=== PATIENT | female | born 2000 | race Caucasian/White ===

== ENCOUNTER 2018-06-04 21:19 | Emergency (ER) | payer OTHER ==
[2018-06-04 21:25] VITALS: RESP 18
[2018-06-04 22:05] LABS: Basophils % (A) 0 %; Eosinophils # (A) 0.2 k/uL (0-0.7); Eosinophils % (A) 3 %; HCT 39.8 % (34.0-46.0); HGB 13.3 gm/dL (11.4-16.0); Lymphocytes # (A) 1.8 k/uL (1.0-4.8); Lymphocytes % (A) 28 %; MCH 28.8 pg (25.0-35.0); MCHC 33.5 g/dL (31.0-37.0); MCV 85.9 fL (80.0-100.0); Mean Platelet Volume 6.6; Monocytes # (A) 0.3 k/uL (0-1.0); Monocytes % (A) 5 %; Neutrophils % (A) 62 %; Platelet Count 276 k/uL (150-450); RBC 4.63 m/uL (3.80-5.40); RDW 12.5 % (11.5-15.5); WBC 6.5 k/uL (4.0-11.0)
--- NOTE | 2018-06-04 22:25 | US ---
EXAMINATION TYPE: US abdomen complete DATE OF EXAM: 06/04/2018 COMPARISON: NONE CLINICAL HISTORY: Pain. Intermittent abdomen pain x 2 years, gets worse after eating, patient not NPO , ate 2 hours prior to exam. EXAM MEASUREMENTS: Liver Length: 15.3 cm Gallbladder Wall: 0.1 cm CBD: 0.2 cm Spleen: 10.7 cm Right Kidney: 10.1 x 3.5 x 4.7 cm Left Kidney: 10.0 x 5.1 x 4.6 cm Pancreas: wnl Liver: wnl Gallbladder: contracted Evidence for sonographic Dooley's sign: yes CBD: wnl Spleen: wnl Right Kidney: wnl Left Kidney: wnl Upper IVC: wnl Abd Aorta: wnl The liver is homogenous. The intrahepatic portion of the IVC and proximal abdominal aorta are within normal limits. There is no evidence of cholelithiasis. Common bile duct is unremarkable. The visu alized portions of the pancreas are homogenous. The spleen is unremarkable. Kidneys are symmetric a nd free of hydronephrosis. No renal lesions are seen. IMPRESSION: Negative complete abdominal sonogram. No gallstones or dilated ducts.
[2018-06-04 22:32] LABS: ALT 28 U/L (9-52); AST 20 U/L (14-36); Alkaline Phosphatase 56 U/L (38-126); Anion Gap 12 mmol/L; Blood Urea Nitrogen 9 mg/dL (7-17); Carbon Dioxide 23 mmol/L (22-30); Chloride 107 mmol/L (98-107); Glucose 100 mg/dL (74-99); Lipase 120 U/L (23-300); Potassium 4.1 mmol/L (3.5-5.1); Sodium 142 mmol/L (137-145); Total Bilirubin 0.4 mg/dL (0.2-1.3); Total Protein 8.2 g/dL (6.3-8.2)
--- NOTE | 2018-06-04 22:37 | XR ---
EXAMINATION TYPE: XR abdomen acute w cxr DATE OF EXAM: 06/04/2018 COMPARISON: NONE HISTORY: Abdominal pain TECHNIQUE: Chest x-ray with supine and upright abdomen FINDINGS: Heart and mediastinum are normal. Lungs are clear. Diaphragm is normal. There is mild thoracic dextro scoliosis. The bowel gas pattern is normal. There is no sign of intestinal obstruction or pneumoperit oneum. Fecal pattern is normal. There are no pathologic calcifications over the kidneys. Bony structu res are intact. IMPRESSION: Nonacute abdomen. No active cardiopulmonary disease.
[2018-06-04 22:49] LABS: Appearance,Urine Cloudy (Clear); Bacteria,Urine Occasional /hpf; Bilirubin,Urine Negative (Negative); Blood,Urine Negative (Negative); Color,Urine Light Yellow; Glucose,Urine (UA) Negative (Negative); Ketones,Urine Negative (Negative); Leukocyte Esterase,Urine Negative (Negative); Mucus,Urine Rare /hpf; Nitrite,Urine Negative (Negative); PH, Urine 7.5 (5.0-8.0); Protein,Urine Negative (Negative); Specific Gravity,Urine 1.009 (1.001-1.035); Squamous Epithelial Cell,Urine 2 /hpf (0-4); Urobilinogen,Urine <2.0 mg/dL (<2.0); WBC,Urine <1 /hpf (0-5)
--- NOTE | 2018-06-04 23:54 | ED ---
Abdominal Pain HPI - General Chief Complaint: Abdominal Pain Stated Complaint: Vomiting Time Seen by Provider: 06/04/18 21:30 Source: patient Mode of arrival: ambulatory Limitations: no limitations - History of Present Illness Initial Comments: Patient is a 17-year-old female who presents with a chief complaint of abdominal pain for 2 years. The patient states that she has felt bloated and throws up after she eats for the last 2 years. She has not seen primary care for this issue in the past. She cannot identify inciting incident, aggravating or alleviating factors. She denies fever, chills, constipation or diarrhea. - Related Data Previous Rx's Medication Instructions Recorded Magnesium Citrate [Citrate of 296 ml PO ONCE #592 ml 06/04/18 Magnesia] Ondansetron Odt [Zofran Odt] 4 mg PO Q8HR PRN #12 tab 06/04/18 Allergies Allergy/AdvReac Type Severity Reaction Status Date / Time diphenhydramine Allergy Unknown Verified 06/04/18 21:25 [From [place]lin] Review of Systems ROS Statement: Those systems with pertinent positive or pertinent negative responses have been documented in the HPI. ROS Other: All systems not noted in ROS Statement are negative. Gastrointestinal: Reports: nausea, vomiting Past Medical History Past Medical History: Asthma Additional Past Medical History / Comment(s): scoliosis History of Any Multi-Drug Resistant Organisms: None Reported Past Surgical History: No Surgical Hx Reported Past Psychological History: Anxiety, Depression Smoking Status: Current every day smoker Past Alcohol Use History: None Reported Past Drug Use History: None Reported General Exam Limitations: no limitations General appearance: alert, in no apparent distress Head exam: Present: atraumatic, normocephalic Eye exam: Present: normal appearance ENT exam: Present: normal exam Neck exam: Present: normal inspection Respiratory exam: Present: normal lung sounds bilaterally, respiratory distress. Absent: wheezes, rales Cardiovascular Exam: Present: regular rate, normal rhythm GI/Abdominal exam: Present: soft. Absent: distended, tenderness Rectal exam: Present: deferred Extremities exam: Present: normal inspection Back exam: Present: normal inspection Neurological exam: Present: alert, oriented X3 Psychiatric exam: Present: normal affect, normal mood Skin exam: Present: warm, dry, intact Course Vital Signs 06/04/18 21:21 Temperature 97.9 F Pulse Rate 85 Respiratory 18 Rate Blood Pressure 110/73 O2 Sat by Pulse 99 Oximetry Medical Decision Making - Medical Decision Making Patient presents with chief complaint of abdominal pain 2 years. On initial evaluation, vitals are stable, patient is in no acute distress. Patient evaluated with basic labs including a TSH. Labs are unremarkable. Ultrasound does not show any gallbladder pathology or ductal dilation. Acute abdominal series shows no acute process. Under it up and reviewed the films, there appears to be moderate stool burden in the left colon and rectum. I discussed the results with the patient. I instructed her to follow up with primary care. She will be supplied with contact information for primary care and gastroenterology. Patient was written prescriptions for magnesium citrate and Zofran. RTED if symptoms worsen or change. - Lab Data Result diagrams: 06/04/18 21:52 06/04/18 21:52 Lab Results 06/04/18 06/04/18 06/04/18 Range/Units 21:52 21:52 22:00 WBC 6.5 (4.0-11.0) k/uL RBC 4.63 (3.80-5.40) m/uL Hgb 13.3 (11.4-16.0) gm/dL Hct 39.8 (34.0-46.0) % MCV 85.9 (80.0-100.0) fL MCH 28.8 (25.0-35.0) pg MCHC 33.5 (31.0-37.0) g/dL RDW 12.5 (11.5-15.5) % Plt Count 276 (150-450) k/uL Neutrophils % 62 % Lymphocytes % 28 % Monocytes % 5 % Eosinophils % 3 % Basophils % 0 % Neutrophils # 4.0 (1.3-7.7) k/uL Lymphocytes # 1.8 (1.0-4.8) k/uL Monocytes # 0.3 (0-1.0) k/uL Eosinophils # 0.2 (0-0.7) k/uL Basophils # 0.0 (0-0.2) k/uL Sodium 142 (137-145) mmol/L Potassium 4.1 (3.5-5.1) mmol/L Chloride 107 (98-107) mmol/L Carbon Dioxide 23 (22-30) mmol/L Anion Gap 12 mmol/L BUN 9 (7-17) mg/dL Creatinine 0.57 (0.52-1.04) mg/dL Est GFR (CKD-EPI)AfAm >90 (>60 ml/min/1.73 sqM) Est GFR (CKD-EPI)NonAf >90 (>60 ml/min/1.73 sqM) Glucose 100 H (74-99) mg/dL Calcium 10.0 (8.4-10.2) mg/dL Total Bilirubin 0.4 (0.2-1.3) mg/dL AST 20 (14-36) U/L ALT 28 (9-52) U/L Alkaline Phosphatase 56 (38-126) U/L Total Protein 8.2 (6.3-8.2) g/dL Albumin 5.0 (3.5-5.0) g/dL Lipase 120 (23-300) U/L TSH 3.560 (0.465-4.680) mIU/L Urine Color Light Yellow Urine Appearance Cloudy H (Clear) Urine pH 7.5 (5.0-8.0) Ur Specific [place] 1.009 (1.001-1.035) Urine Protein Negative (Negative) Urine Glucose (UA) Negative (Negative) Urine Ketones Negative (Negative) Urine Blood Negative (Negative) Urine Nitrite Negative (Negative) Urine Bilirubin Negative (Negative) Urine Urobilinogen <2.0 (<2.0) mg/dL Ur Leukocyte Esterase Negative (Negative) Urine WBC <1 (0-5) /hpf Ur Squamous Epith Cells 2 (0-4) /hpf Urine Bacteria Occasional H (None) /hpf Urine Mucus Rare H (None) /hpf Disposition Clinical Impression: Nausea and vomiting Disposition: HOME SELF-CARE Condition: Good Is patient prescribed a controlled substance at d/c from ED?: No Referrals: Darren Vance Jr, [Primary Care Provider] - 1-2 days Elisa Torres MD [STAFF PHYSICIAN] - 1-2 days Randell Diallo MD [STAFF PHYSICIAN] - 1-2 days
[2018-06-05 00:31] VITALS: BP 120/70; PULSE 80; TEMP 97.3
== END 2018-06-05 00:31 | disposition home or self-care (01) ==
LOC: EC 21:19
DX: R11.2 Nausea with vomiting, unspecified (principal); R06.03 Acute respiratory distress; R10.9 Unspecified abdominal pain; F17.200 Nicotine dependence, unspecified, uncomplicated; Z88.8 Allergy status to other drugs, medicaments and biological substances
CPT/HCPCS: 36415; 74022; 76700; 80053; 81001; 83690; 84443; 85025; 99284

== ENCOUNTER 2019-02-19 18:25 | Emergency (ER) | payer OTHER ==
[2019-02-19 18:36] VITALS: RESP 18; TEMP 98.4
--- NOTE | 2019-02-19 18:43 | ED ---
Female Urogenital HPI - General Chief complaint: Urogenital Stated complaint: UTI Source: patient, RN notes reviewed, old records reviewed Mode of arrival: ambulatory Limitations: no limitations - History of Present Illness Initial comments: This is a 18-year-old female the ER for evaluation. Patient admits to dysuria. Dysuria for quite some time now. Patient patient does have urinary tract infection. No abdominal pain no fevers. Denies chance of . No recent travel history or sick contacts. No prior history of significant STD STI. MD Complaint: dysuria -: week(s) Location: suprapubic Radiation: non-radiating Severity: mild Severity scale (1-10): 3 Consistency: constant Improves with: none Worsens with: urination Patient : Yes Associated Symptoms: denies other symptoms, dysuria, weakness - Related Data Previous Rx's Medication Instructions Recorded Nitrofurantoin Monohyd/M-Cryst 100 mg PO Q12HR #100 cap 02/19/19 [Macrobid] Allergies Allergy/AdvReac Type Severity Reaction Status Date / Time diphenhydramine Allergy Anaphylaxis Verified 02/19/19 18:51 [From Benadryl] Review of Systems ROS Statement: Those systems with pertinent positive or pertinent negative responses have been documented in the HPI. ROS Other: All systems not noted in ROS Statement are negative. Past Medical History Past Medical History: Asthma Additional Past Medical History / Comment(s): scoliosis History of Any Multi-Drug Resistant Organisms: None Reported Past Surgical History: No Surgical Hx Reported Past Psychological History: Anxiety, Depression Smoking Status: Current every day smoker Past Alcohol Use History: Occasional Past Drug Use History: None Reported General Exam Limitations: no limitations General appearance: alert, in no apparent distress Head exam: Present: atraumatic, normocephalic, normal inspection Eye exam: Present: normal appearance, PERRL, EOMI. Absent: scleral icterus, conjunctival injection, periorbital swelling ENT exam: Present: normal exam, mucous membranes moist Neck exam: Present: normal inspection. Absent: tenderness, meningismus, lymphadenopathy Respiratory exam: Present: normal lung sounds bilaterally. Absent: respiratory distress, wheezes, rales, rhonchi, stridor Cardiovascular Exam: Present: regular rate, normal rhythm, normal heart sounds. Absent: systolic murmur, diastolic murmur, rubs, gallop, clicks GI/Abdominal exam: Present: soft, normal bowel sounds. Absent: distended, tenderness, guarding, rebound, rigid Extremities exam: Present: normal inspection, full ROM, normal capillary refill. Absent: tenderness, pedal edema, joint swelling, calf tenderness Back exam: Present: normal inspection Neurological exam: Present: alert, oriented X3, CN II-XII intact Psychiatric exam: Present: normal affect, normal mood Skin exam: Present: warm, dry, intact, normal color. Absent: rash Course Vital Signs 02/19/19 02/19/19 18:33 19:10 Temperature 98.4 F Pulse Rate 85 84 Respiratory 18 18 Rate Blood Pressure 112/75 118/70 O2 Sat by Pulse 99 98 Oximetry Medical Decision Making - Medical Decision Making 18 female the ER for evaluation of dysuria. Patient found to have UTI. Patient placed on antibiotics and discharged home - Lab Data Lab Results 02/19/19 02/19/19 Range/Units Unknown Unknown Urine Color Colorless Urine Appearance Clear (Clear) Urine pH 5.5 (5.0-8.0) Ur Specific [place] 1.007 (1.001-1.035) Urine Protein Negative (Negative) Urine Glucose (UA) Negative (Negative) Urine Ketones Negative (Negative) Urine Blood Negative (Negative) Urine Nitrite Positive H (Negative) Urine Bilirubin Negative (Negative) Urine Urobilinogen <2.0 (<2.0) mg/dL Ur Leukocyte Esterase Trace H (Negative) Urine WBC 5 (0-5) /hpf Ur Squamous Epith Cells 1 (0-4) /hpf Urine Bacteria Many H (None) /hpf Urine Mucus Rare H (None) /hpf Urine HCG, Qual Not Detected (Not Detectd) Disposition Clinical Impression: Urinary tract infection Disposition: HOME SELF-CARE Condition: Good Instructions (If sedation given, give patient instructions): Urinary Tract Infection in Women (ED) Prescriptions: Nitrofurantoin Monohyd/M-Cryst [Macrobid] 100 mg PO Q12HR #100 cap Is patient prescribed a controlled substance at d/c from ED?: No Referrals: None,Stated [Primary Care Provider] - 1-2 days
[2019-02-19 19:13] VITALS: BP 118/70; PULSE 84
[2019-02-19 19:29] LABS: Appearance,Urine Clear (Clear); Bacteria,Urine Many /hpf; Bilirubin,Urine Negative (Negative); Blood,Urine Negative (Negative); Color,Urine Colorless; Glucose,Urine (UA) Negative (Negative); Ketones,Urine Negative (Negative); Leukocyte Esterase,Urine Trace (Negative); Mucus,Urine Rare /hpf; Nitrite,Urine Positive (Negative); PH, Urine 5.5 (5.0-8.0); Protein,Urine Negative (Negative); Specific Gravity,Urine 1.007 (1.001-1.035); Squamous Epithelial Cell,Urine 1 /hpf (0-4); Urobilinogen,Urine <2.0 mg/dL (<2.0); WBC,Urine 5 /hpf (0-5)
[2019-02-19] MEDS ORDERED: NITROFURANTOIN MONOHYD/M-CRYST 100 MG CAP PO STA (19:46)
[2019-02-20 13:35] LABS: C. trachomatis,PCR Negative (Neg,Equiv); Chlamydia trachomatis Source Urine
[2019-02-20 13:36] LABS: N. gonorrhoeae,PCR Negative (Neg,Equiv); Neisseria Source Urine
== END 2019-02-19 19:59 | disposition home or self-care (01) ==
LOC: EC 18:25
DX: N39.0 Urinary tract infection, site not specified (principal); Z32.02 Encounter for pregnancy test, result negative; F17.200 Nicotine dependence, unspecified, uncomplicated; Z88.8 Allergy status to other drugs, medicaments and biological substances
CPT/HCPCS: 81001; 81025; 87077; 87086; 87186; 87491; 87591; 99284

== ENCOUNTER 2019-06-24 18:41 | Emergency (ER) | payer OTHER ==
[2019-06-24 18:56] VITALS: BP 110/68
--- NOTE | 2019-06-24 19:04 | ED ---
General Adult HPI - General Chief complaint: Urogenital Stated complaint: UTI Time Seen by Provider: 06/24/19 18:57 Source: patient Mode of arrival: ambulatory Limitations: no limitations - History of Present Illness Initial comments: 18-year-old female patient percents to the emergency department today for possible urinary tract infection. Patient states her last couple days she has been having a foul odor to her urine. She denies any dysuria, urinary frequency, urinary urgency. States that she has had UTIs in the past and this is the first symptom she is experienced. She denies any flank pain or suprapubic pain. Denies any fever, chills, nausea, or vomiting. Denies any chance of . Denies any abnormal vaginal bleeding or discharge. Denies chance of . - Related Data Previous Rx's Medication Instructions Recorded Nitrofurantoin Monohyd/M-Cryst 100 mg PO Q12HR #100 cap 02/19/19 [Macrobid] Nitrofurantoin Monohyd/M-Cryst 100 mg PO Q12HR #14 cap 06/24/19 [Macrobid] Allergies Allergy/AdvReac Type Severity Reaction Status Date / Time diphenhydramine Allergy Anaphylaxis Verified 06/24/19 18:56 [From Benadryl] Review of Systems ROS Statement: Those systems with pertinent positive or pertinent negative responses have been documented in the HPI. ROS Other: All systems not noted in ROS Statement are negative. Past Medical History Past Medical History: Asthma Additional Past Medical History / Comment(s): scoliosis History of Any Multi-Drug Resistant Organisms: None Reported Past Surgical History: No Surgical Hx Reported Past Psychological History: Anxiety, Depression Smoking Status: Current every day smoker Past Alcohol Use History: Occasional Past Drug Use History: None Reported General Exam Limitations: no limitations General appearance: alert, in no apparent distress, other (This is a well- developed, well-nourished adult female patient in no acute distress. Vital signs upon presentation are temperature 97.9F, pulse 83, respirations 18, blood pressure 110/68, pulse ox 100% on room air.) Respiratory exam: Present: normal lung sounds bilaterally. Absent: respiratory distress, wheezes, rales, rhonchi, stridor Cardiovascular Exam: Present: regular rate, normal rhythm, normal heart sounds. Absent: systolic murmur, diastolic murmur, rubs, gallop, clicks GI/Abdominal exam: Present: soft, normal bowel sounds. Absent: distended, tenderness, guarding, rebound, rigid Back exam: Present: normal inspection. Absent: CVA tenderness (R), CVA tenderness (L) Neurological exam: Present: alert, oriented X3, CN II-XII intact Psychiatric exam: Present: normal affect, normal mood Skin exam: Present: warm, dry, intact, normal color. Absent: rash Course Vital Signs 06/24/19 18:54 Temperature 97.9 F Pulse Rate 83 Respiratory 18 Rate Blood Pressure 110/68 O2 Sat by Pulse 100 Oximetry Medical Decision Making - Medical Decision Making 18-year-old female patient presented to the emergency department today for evaluation of possible UTI. Physical examination is unremarkable. No CVA tenderness. No suprapubic tenderness. Urinalysis was obtained and did show moderate leukocyte esterase, 20 white blood cells, and moderate bacteria. We did discuss possibility of stricture transmitted infection, patient states this is not a concern to her and declines testing. She will be started on Macrobid for possible UTI. This will be sent for culture. She is instructed to follow- up with her primary care physician for recheck in 1-2 days. Return parameters discussed in detail. She verbalizes understanding and agrees with this plan. - Lab Data Lab Results 06/24/19 06/24/19 Range/Units 19:11 19:11 Urine Color Yellow Urine Appearance Cloudy H (Clear) Urine pH 6.0 (5.0-8.0) Ur Specific [place] 1.021 (1.001-1.035) Urine Protein Trace H (Negative) Urine Glucose (UA) Negative (Negative) Urine Ketones Negative (Negative) Urine Blood Negative (Negative) Urine Nitrite Negative (Negative) Urine Bilirubin Negative (Negative) Urine Urobilinogen 2.0 (<2.0) mg/dL Ur Leukocyte Esterase Moderate H (Negative) Urine RBC 2 (0-5) /hpf Urine WBC 20 H (0-5) /hpf Ur Squamous Epith Cells 12 H (0-4) /hpf Urine Bacteria Moderate H (None) /hpf Urine Mucus Many H (None) /hpf Urine HCG, Qual Not Detected (Not Detectd) Disposition Clinical Impression: Urinary tract infection Disposition: HOME SELF-CARE Condition: Good Instructions (If sedation given, give patient instructions): Urinary Tract Infection in Women (ED) Additional Instructions: Increase fluids. Complete and hematocrit prescription in full. Follow-up the primary care physician for recheck in 1-2 days. Return to the emergency department immediately for any new, worsening, or concerning symptoms. Prescriptions: Nitrofurantoin Monohyd/M-Cryst [Macrobid] 100 mg PO Q12HR #14 cap Is patient prescribed a controlled substance at d/c from ED?: No Referrals: None,Stated [Primary Care Provider] - 1-2 days Time of Disposition: 19:37
[2019-06-24 19:30] LABS: Appearance,Urine Cloudy (Clear); Bacteria,Urine Moderate /hpf; Bilirubin,Urine Negative (Negative); Blood,Urine Negative (Negative); Color,Urine Yellow; Glucose,Urine (UA) Negative (Negative); Ketones,Urine Negative (Negative); Leukocyte Esterase,Urine Moderate (Negative); Mucus,Urine Many /hpf; Nitrite,Urine Negative (Negative); Protein,Urine Trace (Negative); RBC,Urine 2 /hpf (0-5); Specific Gravity,Urine 1.021 (1.001-1.035); Squamous Epithelial Cell,Urine 12 /hpf (0-4); WBC,Urine 20 /hpf (0-5)
[2019-06-24] MEDS ORDERED: NITROFURANTOIN MONOHYD/M-CRYST 100 MG CAP PO STA (19:35)
[2019-06-24 20:09] VITALS: PULSE 81; RESP 20; TEMP 98.6
== END 2019-06-24 20:09 | disposition home or self-care (01) ==
LOC: EC 18:41
DX: N39.0 Urinary tract infection, site not specified (principal); F17.200 Nicotine dependence, unspecified, uncomplicated; Z88.8 Allergy status to other drugs, medicaments and biological substances
CPT/HCPCS: 81001; 81025; 87077; 87086; 87186; 99283

== ENCOUNTER 2020-01-10 19:01 | Emergency (ER) | payer OTHER ==
[2020-01-10 19:16] VITALS: BP 107/73; PULSE 85; RESP 18; TEMP 98.3
[2020-01-10] MEDS ORDERED: predniSONE 50 MG TAB PO STA (19:45)
[2020-01-10] MEDS ORDERED: FAMOTIDINE 20 MG TAB PO STA (19:45)
--- NOTE | 2020-01-10 19:47 | ED ---
Skin/Abscess/FB HPI - General Chief complaint: Skin/Abscess/Foreign Body Stated complaint: bud duffy Time Seen by Provider: 01/10/20 19:20 Source: patient Mode of arrival: ambulatory Limitations: no limitations - History of Present Illness Initial comments: 19-year-old female patient presents to the emergency department today for evaluation of rash around her ankles, to the backs of her thighs, and over her chest and upper back. Patient states that she has had the rash on the ankles and backs of her thighs for the last week. Patient states that [place] in [place] She was unsure if this might be flea bites or poison [place]. States the areas have been itchy, the lesions over her ankles and at back of her thighs are blistering and draining. States the area over her chest and upper back started today, states is itchy but appears different from the ankle rash. She denies any fever or chills. Denies any new exposures including soaps, lotions, detergents, new clothing, foods, or medication. She denies any lip or tongue swelling. Denies any throat swelling or difficulty breathing. Patient denies any recent cough, chest pain, abdominal pain, nausea, vomiting, diarrhea, constipation, back pain, numbness, tingling, dizziness, weakness, hematuria, dysuria, urinary urgency, urinary frequency, headache, visual changes, or any other complaints. - Related Data Previous Rx's Medication Instructions Recorded Nitrofurantoin Monohyd/M-Cryst 100 mg PO Q12HR #100 cap 02/19/19 [Macrobid] Nitrofurantoin Monohyd/M-Cryst 100 mg PO Q12HR #14 cap 06/24/19 [Macrobid] Famotidine [Pepcid] 20 mg PO DAILY #5 tablet 01/10/20 predniSONE 50 mg PO DAILY #5 tablet 01/10/20 Allergies Allergy/AdvReac Type Severity Reaction Status Date / Time diphenhydramine Allergy Anaphylaxis Verified 01/10/20 19:16 [From [place]lin] Review of Systems ROS Statement: Those systems with pertinent positive or pertinent negative responses have been documented in the HPI. ROS Other: All systems not noted in ROS Statement are negative. Past Medical History Past Medical History: Asthma Additional Past Medical History / Comment(s): scoliosis History of Any Multi-Drug Resistant Organisms: None Reported Past Surgical History: No Surgical Hx Reported Past Psychological History: Anxiety, Depression Smoking Status: Vaper Past Alcohol Use History: Occasional Past Drug Use History: None Reported General Exam Limitations: no limitations General appearance: alert, in no apparent distress, other (This is a well-developed, well-nourished adult female patient in no acute distress. Vital signs upon presentation are temperature 98.3F, pulse 85, respirations 18, blood pressure 107/73, pulse ox 99% on room air) Eye exam: Present: normal appearance, PERRL, EOMI. Absent: scleral icterus, conjunctival injection, periorbital swelling ENT exam: Present: normal exam, normal oropharynx, mucous membranes moist Respiratory exam: Present: normal lung sounds bilaterally. Absent: respiratory distress, wheezes, rales, rhonchi, stridor Cardiovascular Exam: Present: regular rate, normal rhythm, normal heart sounds. Absent: systolic murmur, diastolic murmur, rubs, gallop, clicks GI/Abdominal exam: Present: soft, normal bowel sounds. Absent: distended, tenderness, guarding, rebound, rigid Neurological exam: Present: alert, oriented X3, CN II-XII intact Psychiatric exam: Present: normal affect, normal mood Skin exam: Present: warm, dry, intact, normal color, rash (There is a vesicular, crusting rash noted to the bilateral ankles circumferentially as well as the proximal posterior thigh and lower buttock. No evidence for surrounding erythema or cellulitis. There is a rash noted over the chest and upper back that appears papular, no drainage, nonvesicular, non-petechial.) Course Vital Signs 01/10/20 19:13 Temperature 98.3 F Pulse Rate 85 Respiratory 18 Rate Blood Pressure 107/73 O2 Sat by Pulse 99 Oximetry Medical Decision Making - Medical Decision Making 19-year-old female patient presents to the emergency department today for evaluation of rash to the ankles, posterior thigh, and chest and back. Physical examination did reveal a vesicular rash surrounding the ankles and posterior th igh is consistent with poison [place]. There is also a rash noted to the chest and upper back which could be ALLERGIC in nature. We will give a 5 day course of prednisone and Pepcid. She is instructed to apply cool compresses, do oatmeal baths, and apply calamine lotion to the painful areas. She is instructed to follow-up with her primary care physician for recheck in 1-2 days. Return parameters discussed in detail. She verbalizes understanding and agrees with this plan. Disposition Clinical Impression: [place]ison [place], Rash Disposition: HOME SELF-CARE Condition: Good Instructions (If sedation given, give patient instructions): Poison [place] (ED), Acute Rash (ED) Additional Instructions: Try these methods for symptoms relief: Oatmeal baths Cool, wet compresses Ice packs Topical menthol and phenol (calamine lotion) compounds hydrocortisone cream No diphenhydramine cream/lotion. Medications as directed. Follow-up with your primary care physician for recheck in 1-2 days. Return to the emergency department immediately for any new, worsening, or concerning symptoms. Prescriptions: Famotidine [Pepcid] 20 mg PO DAILY #5 tablet predniSONE 50 mg PO DAILY #5 tablet Is patient prescribed a controlled substance at d/c from ED?: No Referrals: None,Stated [Primary Care Provider] - 1-2 days Time of Disposition: 19:47
== END 2020-01-10 20:10 | disposition home or self-care (01) ==
LOC: EC 19:01
DX: L23.7 Allergic contact dermatitis due to plants, except food (principal); R21 Rash and other nonspecific skin eruption; F17.290 Nicotine dependence, other tobacco product, uncomplicated; Z88.8 Allergy status to other drugs, medicaments and biological substances
CPT/HCPCS: 99283; J7512

== ENCOUNTER 2020-06-03 17:59 | Emergency (ER) | payer OTHER ==
[2020-06-03 18:30] LABS: Amorphous Sediment,Urine Rare /hpf; Appearance,Urine Clear (Clear); Bacteria,Urine Rare /hpf; Bilirubin,Urine Negative (Negative); Blood,Urine Negative (Negative); Color,Urine Yellow; Glucose,Urine (UA) Negative (Negative); Hyaline Casts,Urine 1 /lpf (0-2); Ketones,Urine Negative (Negative); Leukocyte Esterase,Urine Small (Negative); Mucus,Urine Many /hpf; Nitrite,Urine Negative (Negative); PH, Urine 5.5 (5.0-8.0); Protein,Urine Negative (Negative); RBC,Urine 3 /hpf (0-5); Specific Gravity,Urine 1.025 (1.001-1.035); Squamous Epithelial Cell,Urine 2 /hpf (0-4); WBC,Urine 14 /hpf (0-5)
--- NOTE | 2020-06-03 19:01 | ED ---
Female Urogenital HPI - General Chief complaint: Urogenital Stated complaint: UTI Time Seen by Provider: 06/03/20 18:09 Source: patient Mode of arrival: ambulatory Limitations: no limitations - History of Present Illness Initial comments: 19-year-old female presenting to emergency Department with a chief complaint of foul-smelling urine. Patient reports this is benign well for the past several months. States her urine smells "sour" after she is done with her menstrual period. Patient reports she uses tampons and has been having difficulties with finding right tampons use. Patient denies any vaginal odor, discharge or bleeding. She denies dysuria, increased urgency or frequency. He states however that her urine is darker than usual like she has not drink water. Patient states she is sexually active with one person and has unprotected sex. Patient is not concerned for STDs. Patient states there is a possibility for . She is denying any back pain or abdominal pain night sweats fevers or chills. Denies any vaginal lesions. No history of . - Related Data Previous Rx's Medication Instructions Recorded Nitrofurantoin Monohyd/M-Cryst 100 mg PO Q12HR #100 cap 02/19/19 [Macrobid] Nitrofurantoin Monohyd/M-Cryst 100 mg PO Q12HR #14 cap 06/24/19 [Macrobid] Famotidine [Pepcid] 20 mg PO DAILY #5 tablet 01/10/20 predniSONE 50 mg PO DAILY #5 tablet 01/10/20 Cephalexin [Keflex] 500 mg PO BID 5 Days #10 cap 06/03/20 Allergies Allergy/AdvReac Type Severity Reaction Status Date / Time diphenhydramine Allergy Anaphylaxis Verified 06/03/20 18:05 [From Benadryl] Review of Systems ROS Statement: Those systems with pertinent positive or pertinent negative responses have been documented in the HPI. ROS Other: All systems not noted in ROS Statement are negative. Past Medical History Past Medical History: Asthma Additional Past Medical History / Comment(s): scoliosis History of Any Multi-Drug Resistant Organisms: None Reported Past Surgical History: No Surgical Hx Reported Past Psychological History: Anxiety, Depression Smoking Status: Vaper Past Alcohol Use History: Occasional Past Drug Use History: None Reported General Exam Limitations: no limitations General appearance: alert, in no apparent distress Head exam: Present: atraumatic, normocephalic, normal inspection Eye exam: Present: normal appearance, PERRL, EOMI Pupils: Present: normal accommodation ENT exam: Present: normal exam, normal oropharynx, mucous membranes moist, TM's normal bilaterally, normal external ear exam Neck exam: Present: normal inspection, full ROM. Absent: tenderness Respiratory exam: Present: normal lung sounds bilaterally. Absent: respiratory distress, wheezes, rales Cardiovascular Exam: Present: regular rate, normal rhythm, normal heart sounds. Absent: systolic murmur, diastolic murmur, rubs GI/Abdominal exam: Present: soft. Absent: distended, tenderness, guarding, rebound Extremities exam: Present: normal inspection, full ROM, normal capillary refill. Absent: tenderness, pedal edema, joint swelling, calf tenderness Back exam: Present: normal inspection, full ROM. Absent: tenderness, CVA tenderness (R), CVA tenderness (L), muscle spasm, paraspinal tenderness, vertebral tenderness Neurological exam: Present: alert, oriented X3, normal gait Psychiatric exam: Present: normal affect, normal mood. Absent: depressed, agitated Skin exam: Present: warm, dry, intact, normal color Course Vital Signs 06/03/20 06/03/20 18:01 19:44 Temperature 98.7 F 98.2 F Pulse Rate 99 77 Respiratory 16 15 Rate Blood Pressure 113/70 106/66 O2 Sat by Pulse 100 98 Oximetry Medical Decision Making - Medical Decision Making 19-year-old male presenting to emergency Department chief complaint of foul- smelling urine. Physical examination is unremarkable. UA reveals some white blood cells and leukocyte esterase. Urine culture pending. Patient is not . Patient treated with Keflex for 5 days. Patient was offered pelvic examination, she declined. Patient was advised to follow-up with her ordained minister. Return parameters discussed with patient was understanding and agreeable. Case discussed physician. - Lab Data Lab Results 06/03/20 06/03/20 Range/Units 18:12 18:12 Urine Color Yellow Urine Appearance Clear (Clear) Urine pH 5.5 (5.0-8.0) Ur Specific [place] 1.025 (1.001-1.035) Urine Protein Negative (Negative) Urine Glucose (UA) Negative (Negative) Urine Ketones Negative (Negative) Urine Blood Negative (Negative) Urine Nitrite Negative (Negative) Urine Bilirubin Negative (Negative) Urine Urobilinogen 3.0 (<2.0) mg/dL Ur Leukocyte Esterase Small H (Negative) Urine RBC 3 (0-5) /hpf Urine WBC 14 H (0-5) /hpf Ur Squamous Epith Cells 2 (0-4) /hpf Amorphous Sediment Rare H (None) /hpf Urine Bacteria Rare H (None) /hpf Hyaline Casts 1 (0-2) /lpf Urine Mucus Many H (None) /hpf Urine HCG, Qual Not Detected (Not Detectd) Disposition Clinical Impression: Urinary tract infection Disposition: HOME SELF-CARE Condition: Stable Instructions (If sedation given, give patient instructions): Urinary Tract Infection in Women (ED) Additional Instructions: Take prescribed medication as directed. Follow-up with a ordained minister. Return to emergency department if symptoms worsen. Prescriptions: Cephalexin [Keflex] 500 mg PO BID 5 Days #10 cap Is patient prescribed a controlled substance at d/c from ED?: No Referrals: None,Stated [Primary Care Provider] - 1-2 days Alexi Calderon DO [Doctor of Osteopathic Medicine] - 1-2 days Time of Disposition: 19:13
[2020-06-03 19:45] VITALS: BP 106/66; PULSE 77; RESP 15; TEMP 98.2
== END 2020-06-03 19:25 | disposition home or self-care (01) ==
LOC: EC 17:59
DX: N39.0 Urinary tract infection, site not specified (principal); F17.290 Nicotine dependence, other tobacco product, uncomplicated; Z88.8 Allergy status to other drugs, medicaments and biological substances
CPT/HCPCS: 81001; 81025; 87086; 99283

== ENCOUNTER 2021-03-15 09:44 | Emergency (ER) | payer OTHER ==
[2021-03-15 09:50] VITALS: BP 108/69; PULSE 71; RESP 18; TEMP 97.9
--- NOTE | 2021-03-15 10:19 | ED ---
General Adult HPI - General Chief complaint: Upper Respiratory Infection Stated complaint: Hives/ENT/Vomiting Time Seen by Provider: 03/15/21 09:52 Source: patient Mode of arrival: ambulatory Limitations: no limitations - History of Present Illness Initial comments: Dictation was produced using [employer] dictation software. please excuse any grammatical, word or spelling errors. Chief Complaint: 20-year-old female presents to the emergency department for cough and sore throat History of Present Illness: Patient is a 20-year-old female she states she is had 4 days of cough, sore throat and rash. Patient states she's been having a urticarial rash that comes and goes. She has cough, runny nose sore throat and diarrhea. She states her diarrhea is nonbilious not bloody. Patient denies any fever or constitutional symptoms. Patient has no obvious sick contacts. Denies any significant comorbidities The ROS documented in this emergency department record has been reviewed and confirmed by me. Those systems with pertinent positive or negative responses have been documented in the HPI. All other systems are other negative and/or noncontributory. PHYSICAL EXAM: General Impression: Alert and oriented x3, not in acute distress HEENT: Normocephalic atraumatic, extra-ocular movements intact, pupils equal and reactive to light bilaterally, mucous membranes moist. Cardiovascular: Heart regular rate and rhythm Chest: Able to complete full sentences, no retractions, no tachypnea, lungs clear to auscultation bilaterally Abdomen: abdomen soft, non-tender, non-distended, no organomegaly Musculoskeletal: Pulses present and equal in all extremities, no peripheral edema Motor: no focal deficits noted Neurological: CN II-XII grossly intact, no focal motor or sensory deficits noted Skin: Intact with no visualized rashes Psych: Normal affect and mood ED course: 20-year-old female presents to the emergency department for URI symptoms. She also has an associated urticarial rash. Vital signs upon arrival are within acceptable limits. Urine hCG negative, for viral PCR negative. strep negative, x ray negative. patient reevaluated at bedside and in stable medical condition. patient will be discharged. - Related Data Previous Rx's Medication Instructions Recorded Nitrofurantoin Monohyd/M-Cryst 100 mg PO Q12HR #100 cap 02/19/19 [Macrobid] Nitrofurantoin Monohyd/M-Cryst 100 mg PO Q12HR #14 cap 06/24/19 [Macrobid] Famotidine [Pepcid] 20 mg PO DAILY #5 tablet 01/10/20 predniSONE 50 mg PO DAILY #5 tablet 01/10/20 Cephalexin [Keflex] 500 mg PO BID 5 Days #10 cap 06/03/20 Albuterol Sulfate [Proair Hfa] 1 - 2 puff INHALATION Q6HR PRN 03/15/21 #8.5 gm Allergies Allergy/AdvReac Type Severity Reaction Status Date / Time diphenhydramine Allergy Anaphylaxis Verified 03/15/21 09:50 [From Benadryl] Review of Systems ROS Statement: Those systems with pertinent positive or pertinent negative responses have been documented in the HPI. ROS Other: All systems not noted in ROS Statement are negative. Past Medical History Past Medical History: Asthma Additional Past Medical History / Comment(s): scoliosis History of Any Multi-Drug Resistant Organisms: None Reported Past Surgical History: No Surgical Hx Reported Past Psychological History: Anxiety, Depression Smoking Status: Vaper Past Alcohol Use History: Occasional Past Drug Use History: None Reported General Exam Limitations: no limitations Course Vital Signs 03/15/21 09:48 Temperature 97.9 F Pulse Rate 71 Respiratory 18 Rate Blood Pressure 108/69 O2 Sat by Pulse 99 Oximetry Medical Decision Making - Lab Data Lab Results 03/15/21 03/15/21 03/15/21 Range/Units 10:23 10:23 10:23 Urine HCG, Qual Not Detected (Not Detectd) Influenza Type A (PCR) Not Detected (Not Detectd) Influenza Type B (PCR) Not Detected (Not Detectd) RSV (PCR) Not Detected (Not Detectd) SARS-CoV-2 (PCR) Not Detected (Not Detectd) Group A Strep Rapid Negative (Negative) Disposition Clinical Impression: Common cold Disposition: HOME SELF-CARE Condition: Good Instructions (If sedation given, give patient instructions): Upper Respiratory Infection (ED) Prescriptions: Albuterol Sulfate [Proair Hfa] 1 - 2 puff INHALATION Q6HR PRN #8.5 gm PRN Reason: Dyspnea Is patient prescribed a controlled substance at d/c from ED?: No Referrals: Ely Smart DO [Primary Care Provider] - 1-2 days
--- NOTE | 2021-03-15 11:30 | XR ---
EXAMINATION TYPE: XR chest 1V portable DATE OF EXAM: 03/15/2021 COMPARISON: NONE HISTORY: Cough TECHNIQUE: Single frontal view of the chest is obtained. FINDINGS: There is no focal air space opacity, pleural effusion, or pneumothorax seen. The cardiac silhouette size is within normal limits. The osseous structures are intact. IMPRESSION: No acute process.
[2021-03-15] MEDS ORDERED: dexAMETHasone 4 MG TAB PO STA (12:48)
== END 2021-03-15 13:03 | disposition home or self-care (01) ==
LOC: EC 09:44
DX: J00 Acute nasopharyngitis [common cold] (principal); J45.909 Unspecified asthma, uncomplicated; Z88.8 Allergy status to other drugs, medicaments and biological substances; Z20.822 Contact with and (suspected) exposure to COVID-19; F32.9 Major depressive disorder, single episode, unspecified; F41.9 Anxiety disorder, unspecified; F17.290 Nicotine dependence, other tobacco product, uncomplicated
CPT/HCPCS: 71045; 81025; 87081; 87430; 87636; 99283

== ENCOUNTER → 2021-03-27 | Outpatient (CLI) | payer OTHER ==
[2021-03-27 22:49] LABS: Basophils # (A) 0.02 X 10*3/uL (0.00-0.10); Basophils % (A) 0.4 %; Eosinophils # (A) 0.08 X 10*3/uL (0.04-0.35); Eosinophils % (A) 1.5 %; HCT 37.3 % (37.2-46.3); HGB 12.5 g/dL (12.0-15.0); Lymphocytes % (A) 23.7 %; MCHC 33.5 g/dL (32.0-37.0); MCV 89.4 fL (80.0-97.0); Mean Platelet Volume 10.1 fL (9.5-12.2); Monocytes # (A) 0.61 X 10*3/uL (0.20-1.00); Monocytes % (A) 11.1 %; Neutrophils # (A) 3.47 X 10*3/uL (1.80-7.70); Neutrophils % (A) 63.1 %; Platelet Count 275 X 10*3/uL (140-440); RBC 4.17 X 10*6/uL (4.10-5.20); RDW 11.5 % (11.5-14.5); WBC 5.49 X 10*3/uL (4.50-10.00)
[2021-03-28 00:26] LABS: Erythrocyte Sedimentation Rate 18 mm/Hr (0-20)
[2021-03-28 05:37] LABS: ALT 16 U/L (8-44); AST 17 U/L (13-35); African American GFR (CKD) 145.5 (60.0-200.0); Albumin 4.9 g/dL (3.8-4.9); Albumin/Globulin Ratio 1.85 (1.60-3.17); Alkaline Phosphatase 76 U/L (41-126); BUN/Creat Ratio 12.37 Ratio (12.00-20.00); Blood Urea Nitrogen 8.1 mg/dL (9.0-27.0); Calcium 10.2 mg/dL (8.7-10.3); Carbon Dioxide 23.5 mmol/L (21.6-31.8); Chloride 104 mmol/L (96-109); Globulin 2.7 g/dL (1.6-3.3); Glucose 90 mg/dL (70-110); Non-African American GFR(CKD) 125.5 (60.0-200.0); Potassium 4.1 mmol/L (3.5-5.5); Sodium 139 mmol/L (135-145); Total Protein 7.6 g/dL (6.2-8.2)
[2021-03-28 06:10] LABS: C Reactive Protein <0.30 mg/dL (0.00-0.80)
== END | disposition home or self-care (01) ==
LOC: LABWHC1 15:40
PROVIDERS: ATTEND Internal Medicine
DX: L50.9 Urticaria, unspecified (principal)
CPT/HCPCS: 36415; 80053; 84443; 85025; 85652; 86038; 86140; 86160

== ENCOUNTER 2021-06-12 08:37 | Emergency (ER) | payer OTHER ==
[2021-06-12] MEDS: SODIUM CHLORIDE 0.9% 1,000 ML IV STA (09:21)
[2021-06-12] MEDS: ACETAMINOPHEN TAB 500 MG TAB PO STA (09:21)
--- NOTE | 2021-06-12 09:25 | ED ---
General Adult HPI - General Chief complaint: Abdominal Pain Stated complaint: abd/pelvic pain Time Seen by Provider: 06/12/21 08:48 Source: patient, RN notes reviewed Mode of arrival: ambulatory Limitations: no limitations - History of Present Illness Initial comments: 20-year-old female presents to the emergency room for abdominal pain. Patient states that about 6 hours prior to arrival she developed intense cramping pain in her lower mid abdomen. Patient states that it is intermittent in nature. Patient denies fevers or nausea vomiting or diarrhea. Unsure on status. Patient denies any vaginal discharge. Patient states she feels that this is what contractions would feel like.Patient has no other complaints at this time including shortness of breath, chest pain, nausea or vomiting, headache, or visual changes. - Related Data Home Medications Medication Instructions Recorded Confirmed Albuterol Sulfate [Proair Hfa] 2 puff INHALATION RT-Q6H PRN 06/12/21 06/12/21 Previous Rx's Medication Instructions Recorded HYDROcodone/APAP 5-325MG [[place] 1 tab PO Q6HR PRN #10 tab 06/12/21 5-325] Ondansetron [Zofran ODT] 4 mg PO Q8HR PRN #15 tab 06/12/21 Allergies Allergy/AdvReac Type Severity Reaction Status Date / Time diphenhydramine Allergy Anaphylaxis Verified 06/12/21 09:32 [From Benadryl] Review of Systems ROS Statement: Those systems with pertinent positive or pertinent negative responses have been documented in the HPI. ROS Other: All systems not noted in ROS Statement are negative. Past Medical History Past Medical History: Asthma Additional Past Medical History / Comment(s): scoliosis History of Any Multi-Drug Resistant Organisms: None Reported Past Surgical History: No Surgical Hx Reported Past Psychological History: Anxiety, Depression Smoking Status: Vaper Past Alcohol Use History: Occasional Past Drug Use History: None Reported General Exam Limitations: no limitations General appearance: alert, in no apparent distress Head exam: Present: atraumatic Eye exam: Present: normal appearance, PERRL, EOMI. Absent: scleral icterus, conjunctival injection ENT exam: Present: normal exam, mucous membranes moist Neck exam: Present: normal inspection, full ROM. Absent: tenderness Respiratory exam: Present: normal lung sounds bilaterally. Absent: respiratory distress, wheezes Cardiovascular Exam: Present: regular rate, normal rhythm, normal heart sounds GI/Abdominal exam: Present: soft, tenderness (mild supra pubic tenderness, no upper abdominal tenderness), normal bowel sounds. Absent: distended, guarding, rebound, rigid Course Vital Signs 06/12/21 06/12/21 08:42 10:33 Temperature 98.5 F 97.9 F Pulse Rate 101 H 74 Respiratory 18 19 Rate Blood Pressure 109/78 104/52 O2 Sat by Pulse 97 98 Oximetry Medical Decision Making - Medical Decision Making vitals are stable. Patient is well-appearing. She has have lower abdominal tenderness. Pelvic exam did not reveal any cervical motion tenderness or significant discharge. Trichomonas is negative. CBC does show leukocytosis. CMP is unremarkable. Lactic acid is normal. There is an enlarged and complex 3.7 cm hemorrhagic cyst noted on the left ovary. This also shows some non- simple left pelvis fluid suspected blood product. Considered ruptured hemorrhagic cyst. This is consistent with patient's complaint of cramping lower abdominal pain. At this time patient can be discharged home to follow up with primary care. We'll send her home with some pain medications. She'll return here for any worsening symptoms. - Lab Data Result diagrams: 06/12/21 09:25 06/12/21 09:25 Lab Results 06/12/21 06/12/21 06/12/21 Range/Units 09:25 09:25 09:25 WBC 15.6 H (3.8-10.6) k/uL RBC 4.17 (3.80-5.40) m/uL Hgb 12.3 (11.4-16.0) gm/dL Hct 36.6 (34.0-46.0) % MCV 87.6 (80.0-100.0) fL MCH 29.5 (25.0-35.0) pg MCHC 33.7 (31.0-37.0) g/dL RDW 11.7 (11.5-15.5) % Plt Count 365 (150-450) k/uL MPV 7.2 Neutrophils % 92 % Lymphocytes % 5 % Monocytes % 2 % Eosinophils % 0 % Basophils % 0 % Neutrophils # 14.4 H (1.3-7.7) k/uL Lymphocytes # 0.8 L (1.0-4.8) k/uL Monocytes # 0.4 (0-1.0) k/uL Eosinophils # 0.0 (0-0.7) k/uL Basophils # 0.0 (0-0.2) k/uL Sodium (137-145) mmol/L Potassium (3.5-5.1) mmol/L Chloride (98-107) mmol/L Carbon Dioxide (22-30) mmol/L Anion Gap mmol/L BUN (7-17) mg/dL Creatinine (0.52-1.04) mg/dL Est GFR (CKD-EPI)AfAm (>60 ml/min/1.73 sqM) Est GFR (CKD-EPI)NonAf (>60 ml/min/1.73 sqM) Glucose (74-99) mg/dL Plasma Lactic Acid Wilbert (0.7-2.0) mmol/L Calcium (8.4-10.2) mg/dL Total Bilirubin (0.2-1.3) mg/dL AST (14-36) U/L ALT (4-34) U/L Alkaline Phosphatase (38-126) U/L Total Protein (6.3-8.2) g/dL Albumin (3.5-5.0) g/dL Amylase (30-110) U/L Lipase (23-300) U/L Urine Color Light Yellow Urine Appearance Clear (Clear) Urine pH 5.5 (5.0-8.0) Ur Specific [place] 1.017 (1.001-1.035) Urine Protein Negative (Negative) Urine Glucose (UA) Negative (Negative) Urine Ketones Negative (Negative) Urine Blood Negative (Negative) Urine Nitrite Negative (Negative) Urine Bilirubin Negative (Negative) Urine Urobilinogen <2.0 (<2.0) mg/dL Ur Leukocyte Esterase Negative (Negative) Urine HCG, Qual Not Detected (Not Detectd) Trichomonas Ag (Rapid) (Negative) 06/12/21 06/12/21 06/12/21 Range/Units 09:25 09:25 10:57 WBC (3.8-10.6) k/uL RBC (3.80-5.40) m/uL Hgb (11.4-16.0) gm/dL Hct (34.0-46.0) % MCV (80.0-100.0) fL MCH (25.0-35.0) pg MCHC (31.0-37.0) g/dL RDW (11.5-15.5) % Plt Count (150-450) k/uL MPV Neutrophils % % Lymphocytes % % Monocytes % % Eosinophils % % Basophils % % Neutrophils # (1.3-7.7) k/uL Lymphocytes # (1.0-4.8) k/uL Monocytes # (0-1.0) k/uL Eosinophils # (0-0.7) k/uL Basophils # (0-0.2) k/uL Sodium 137 (137-145) mmol/L Potassium 4.2 (3.5-5.1) mmol/L Chloride 107 (98-107) mmol/L Carbon Dioxide 17 L (22-30) mmol/L Anion Gap 13 mmol/L BUN 7 (7-17) mg/dL Creatinine 0.55 (0.52-1.04) mg/dL Est GFR (CKD-EPI)AfAm >90 (>60 ml/min/1.73 sqM) Est GFR (CKD-EPI)NonAf >90 (>60 ml/min/1.73 sqM) Glucose 121 H (74-99) mg/dL Plasma Lactic Acid [place]bert 1.6 (0.7-2.0) mmol/L Calcium 10.1 (8.4-10.2) mg/dL Total Bilirubin 0.8 (0.2-1.3) mg/dL AST 20 (14-36) U/L ALT 13 (4-34) U/L Alkaline Phosphatase 67 (38-126) U/L Total Protein 8.3 H (6.3-8.2) g/dL Albumin 5.0 (3.5-5.0) g/dL Amylase 56 (30-110) U/L Lipase 81 (23-300) U/L Urine Color Urine Appearance (Clear) Urine pH (5.0-8.0) Ur Specific [place] (1.001-1.035) Urine Protein (Negative) Urine Glucose (UA) (Negative) Urine Ketones (Negative) Urine Blood (Negative) Urine Nitrite (Negative) Urine Bilirubin (Negative) Urine Urobilinogen (<2.0) mg/dL Ur Leukocyte Esterase (Negative) Urine HCG, Qual (Not Detectd) Trichomonas Ag (Rapid) Negative (Negative) Disposition Clinical Impression: Hemorrhagic cyst of left ovary, Abdominal pain Disposition: HOME SELF-CARE Condition: Good Instructions (If sedation given, give patient instructions): Ruptured Ovarian Cyst (ED) Additional Instructions: Please take medications as directed. Follow-up with your doctor. Return to the emergency room for any worsening symptoms. Prescriptions: HYDROcodone/APAP 5-325MG [[place] 5-325] 1 tab PO Q6HR PRN #10 tab PRN Reason: Pain Ondansetron [Zofran ODT] 4 mg PO Q8HR PRN #15 tab PRN Reason: Nausea Is patient prescribed a controlled substance at d/c from ED?: No Referrals: Ely Smart DO [Primary Care Provider] - 1-2 days Time of Disposition: 12:12
[2021-06-12 09:37] LABS: Basophils % (A) 0 %; Eosinophils % (A) 0 %; HCT 36.6 % (34.0-46.0); HGB 12.3 gm/dL (11.4-16.0); Lymphocytes # (A) 0.8 k/uL (1.0-4.8); Lymphocytes % (A) 5 %; MCH 29.5 pg (25.0-35.0); MCHC 33.7 g/dL (31.0-37.0); MCV 87.6 fL (80.0-100.0); Mean Platelet Volume 7.2; Monocytes # (A) 0.4 k/uL (0-1.0); Monocytes % (A) 2 %; Neutrophils # (A) 14.4 k/uL (1.3-7.7); Neutrophils % (A) 92 %; Platelet Count 365 k/uL (150-450); RBC 4.17 m/uL (3.80-5.40); RDW 11.7 % (11.5-15.5); WBC 15.6 k/uL (3.8-10.6)
[2021-06-12 09:39] LABS: Appearance,Urine Clear (Clear); Bilirubin,Urine Negative (Negative); Blood,Urine Negative (Negative); Color,Urine Light Yellow; Glucose,Urine (UA) Negative (Negative); Ketones,Urine Negative (Negative); Leukocyte Esterase,Urine Negative (Negative); Nitrite,Urine Negative (Negative); PH, Urine 5.5 (5.0-8.0); Protein,Urine Negative (Negative); Specific Gravity,Urine 1.017 (1.001-1.035); Urobilinogen,Urine <2.0 mg/dL (<2.0)
[2021-06-12 09:52] LABS: ALT 13 U/L (4-34); AST 20 U/L (14-36); African American GFR (CKD) >90 (>60 ml/min/1.73 sqM); Alkaline Phosphatase 67 U/L (38-126); Amylase 56 U/L (30-110); Anion Gap 13 mmol/L; Blood Urea Nitrogen 7 mg/dL (7-17); Calcium 10.1 mg/dL (8.4-10.2); Carbon Dioxide 17 mmol/L (22-30); Chloride 107 mmol/L (98-107); Glucose 121 mg/dL (74-99); Lipase 81 U/L (23-300); Non-African American GFR(CKD) >90 (>60 ml/min/1.73 sqM); Potassium 4.2 mmol/L (3.5-5.1); Sodium 137 mmol/L (137-145); Total Bilirubin 0.8 mg/dL (0.2-1.3); Total Protein 8.3 g/dL (6.3-8.2)
[2021-06-12] MEDS: MORPHINE SULFATE 4 MG/ML SYRINGE IVP STA ×2 (10:04→12:35)
--- NOTE | 2021-06-12 10:29 | US ---
EXAMINATION TYPE: US transvaginal DATE OF EXAM: 06/12/2021 COMPARISON: NONE CLINICAL HISTORY: pain. extreme pain after intercourse at 3am, patient describes pain more on the lef t, G0 TECHNIQUE: TA/TV. Transabdominal sonographic images of the pelvis were acquired. Transvaginal sono graphic images Date of LMP: 05/10/2021 EXAM MEASUREMENTS: Uterus: 7.9 x 5.7 x 3.8cm Endometrial Stripe: 0.6 cm Right Ovary: not seen Left Ovary: 5.8 x 3.7 x 3.3 cm 1. Uterus: Anteverted wnl 2. Endometrium: wnl 3. Right Ovary: not seen due to peristalsing bowel and free fluid within adnexa, took additional barak ging transabdominally but could not visualize 4. Left Ovary: enlarged with complex 3.7cm possible hemorrhagic cyst Spectral, color and waveform doppler imaging shows good arterial and venous flow within the ovary. 5. Bilateral Adnexa: appearance of clot like material inferior to left ovary within left adnexa, rig ht adnexa had free fluid within 6. Posterior cul-de-sac: free fluid with debris noted Heterogeneous uterus with endometrial stripe measuring 6 to 8 mm which is within normal limits. Towar ds end of study transabdominal imaging shows an anteverted shape. Left ovary is slightly enlarged with lobulated lesion about falsely measured by the technologist, roberto rodriges resolving corpus luteal cyst. Some nonsimple fluid in the left pelvis. Right ovary not seen. IMPRESSION: Some nonsimple fluid left pelvis suspected blood product, consider ruptured hemorrhagic c yst.
[2021-06-12 10:34] VITALS: TEMP 97.9
[2021-06-12] MEDS: KETOROLAC 15 MG/ML 1 ML VIAL IVP STA (11:06)
[2021-06-12 12:46] VITALS: BP 104/58; PULSE 65; RESP 18
== END 2021-06-12 12:45 | disposition home or self-care (01) ==
LOC: EC 08:37
DX: N83.202 Unspecified ovarian cyst, left side (principal); J45.909 Unspecified asthma, uncomplicated; F17.290 Nicotine dependence, other tobacco product, uncomplicated; Z79.51 Long term (current) use of inhaled steroids; Z79.899 Other long term (current) drug therapy
CPT/HCPCS: 36415; 80053; 82150; 83605; 83690; 85025; 81003; 81025; 87808; 87491; 87591; 93976; 76856; 76830; 99284; 96374; 96375; 96376; 96361 ×2; J2270; J1885

== ENCOUNTER → 2021-12-18 | Outpatient (CLI) | payer OTHER ==
--- NOTE | 2021-12-18 15:43 | NM ---
EXAMINATION TYPE: NM hepatobiliary w CCK DATE OF EXAM: 12/18/2021 COMPARISON: NONE INDICATION: Abdomen pain TECHNIQUE: After the intravenous administration of 5.19 mCi Tc 99m Mebrofenin hepatobiliary scintigra phy is performed. Images were obtained immediately post injection. FINDINGS: There is prompt uptake and excretion of radiotracer by the liver. Extrahepatic ducts are identified at 2 minutes. The gallbladder is visualized within 4 minutes. Small bowel activity is noted within 8 minutes. At one hour CCK was administered, patient was injected with 1.06 mcg of Kinevac, and gallbladder ejec tion fraction is calculated at 41 %, which is in the normal range.. (Normal >35% and <80%.). IMPRESSION: 1. Normal hepatobiliary scan.
== END | disposition home or self-care (01) ==
LOC: RADNMMAIN 12:55
PROVIDERS: ATTEND Family Medicine
DX: R10.9 Unspecified abdominal pain (principal)
CPT/HCPCS: 78227; A9537; J2805

== ENCOUNTER → 2021-12-25 | Outpatient (CLI) | payer OTHER ==
--- NOTE | 2021-12-25 08:16 | US ---
EXAMINATION TYPE: US gallbladder DATE OF EXAM: 12/25/2021 COMPARISON: US abdomen 2018 CLINICAL HISTORY: R10.11 RUQ PAIN. RUQ pain and bloating after eating EXAM MEASUREMENTS: Liver Length: 14.3 cm Gallbladder Wall: 0.2 cm CBD: 0.2 cm Right Kidney: 10.3 x 3.7 x 4.2 cm Pancreas: wnl Liver: wnl Gallbladder: wnl Evidence for sonographic Dooley's sign: no CBD: wnl Right Kidney: wnl IMPRESSION: No shadowing mobile gallstones or ultrasound evidence for acute cholecystitis.
== END | disposition home or self-care (01) ==
LOC: RADUSWWP 07:03
PROVIDERS: ATTEND Surgery Plastic and Reconstructive Surgery
DX: R10.11 Right upper quadrant pain (principal)
CPT/HCPCS: 76705

== ENCOUNTER 2022-01-06 09:18 | Day surgery (SDC) | payer OTHER ==
[2022-01-05 10:57] VITALS: BMI 21.4
--- NOTE | 2022-01-06 08:34 | P.GSHP ---
History of Present Illness H&P Date: 01/06/22 CHIEF COMPLAINT: GERD and change in bowel habit HISTORY OF PRESENT ILLNESS: The patient is a 21-year-old female who presents with gastroesophageal reflux disease and change in bowel habits. Upper and lower endoscopy were offered for further evaluation and management. PAST MEDICAL HISTORY: Please see list. PAST SURGICAL HISTORY: Please see list. MEDICATIONS: Please see list. ALLERGIES: Please see list. SOCIAL HISTORY: No illicit drug use FAMILY HISTORY: No reports of Crohn disease or ulcerative colitis. REVIEW OF ORGAN SYSTEMS: CONSTITUTIONAL: No reports of fevers or chills. GI: Denies any blood in stools or constipation. PHYSICAL EXAM: VITAL SIGNS: Stable GENERAL: Well-developed pleasant in no acute distress. HEENT: No scleral icterus. Extraocular movements grossly intact. Moist buccal mucosa. NECK: Supple without lymphadenopathy. CHEST: Unlabored respirations. Equal bilateral excursions. CARDIOVASCULAR: Regular rate and rhythm. Distal 2+ pulses. ABDOMEN: Soft, nondistended. MUSCULOSKELETAL: No clubbing, cyanosis, or edema. ASSESSMENT: 1. Gastroesophageal reflux disease 2. Change in bowel habits. PLAN: 1. Recommend proceeding with an upper and lower endoscopy Past Medical History Past Medical History: Asthma, GERD/Reflux Additional Past Medical History / Comment(s): scoliosis, hx ruptured ovarian cyst (no surgery)., diarrhea History of Any Multi-Drug Resistant Organisms: None Reported Past Surgical History: No Surgical Hx Reported Additional Past Anesthesia/Blood Transfusion Reaction / Comment(s): no anesthesia hx. Past Psychological History: Anxiety Smoking Status: Vaper Past Alcohol Use History: Occasional Past Drug Use History: None Reported Medications and Allergies Home Medications Medication Instructions Recorded Confirmed Type Dicyclomine [Bentyl] 20 mg PO QID PRN 01/05/22 01/05/22 History Omeprazole 40 mg PO DAILY 01/05/22 01/05/22 History SUMAtriptan succinate [Imitrex] 50 mg PO ONCE PRN 01/05/22 01/05/22 History Allergies Allergy/AdvReac Type Severity Reaction Status Date / Time codeine Allergy Itching, Verified 01/05/22 10:38 Nausea diphenhydramine Allergy Anaphylaxis Verified 01/05/22 10:37 [From Benadryl]
[~2022-01-06 09:18] MED LIST: LACTATED RINGERS 1,000 ML IV SCH
[2022-01-06 11:04] VITALS: TEMP 97.2
[2022-01-06] MEDS ORDERED: LIDOCAINE 1% (10MG/ML) FOR IV START SQ ONE (11:04)
[2022-01-06] MEDS ORDERED: PROPOFOL 10 MG/ML 20 ML VIAL IV ONE (11:41)
[2022-01-06] MEDS ORDERED: LIDOCAINE 2% INJ 20 MG/ML (2 ML VIAL) ONE (11:41)
--- NOTE | 2022-01-06 11:56 | P.PCN ---
Date of Procedure: 01/06/22 Description of Procedure: PREOPERATIVE DIAGNOSIS: Gastroesophageal reflux disease POSTOPERATIVE DIAGNOSIS: Gastroesophageal reflux disease with erosive esophagitis Gastritis. Diaphragmatic hiatal hernia OPERATION: Esophagogastroduodenoscopy with biopsies along antrum, duodenum SURGEON: Loretta Lockwood MD ANESTHESIA: MAC. INDICATIONS: The patient is a 21-year-old female who presents with reflux disease. Benefits and risks of the procedure were described. Informed consent was obtained. DESCRIPTION: The patient was brought into the endoscopy suite and laid in the left lateral decubitus position. An Olympus gastroscope was passed along the posterior oropharynx down to the distal esophagus where the squamocolumnar junction was encountered at 35 cm from the incisors. The stomach was entered and no bile reflux was found. Additional findings are listed below. Biopsies with cold forceps were obtained of the antrum. The first through third portion of the duodenum was examined. Retroflexion of the scope confirmed Hill grade 3 lower esophageal valve. The squamocolumnar junction demonstrated LA grade B erosive esophagitis. The stomach was desufflated. The patient tolerated the procedure well. FINDINGS: Squamocolumnar junction 35 cm from the incisors. Diaphragmatic hiatus at 36 cm. Hiatal hernia, 1 cm Hill grade 3 lower esophageal valve. LA grade B erosive esophagitis. Cold biopsies of the duodenum for celiac disease Chronic gastritis with biopsies obtained RECOMMENDATIONS: Upper endoscopy as needed.
[2022-01-06 12:25] VITALS: BP 100/61; PULSE 57; RESP 18
--- NOTE | 2022-01-06 12:35 | P.PCN ---
Date of Procedure: 01/06/22 Description of Procedure: PREOPERATIVE DIAGNOSIS: Change in bowel habits with colitis POSTOPERATIVE DIAGNOSIS: Change in bowel habits with colitis OPERATION: Colonoscopy to the cecum, ileocecal valve and appendiceal orifice. Colonoscopy with random cold forceps biopsies for colitis. SURGEON: Loretta Lockwood MD. ANESTHESIA: MAC. INDICATIONS: The patient is a 21-year-old female who presents for colonoscopy screening. Benefits and risks were described and informed consent was obtained. DESCRIPTION OF PROCEDURE: The patient had undergone Sutab prep. The patient had been brought into the operating room and laid in the left lateral decubitus position. After adequate intravenous sedation, the rectum was examined with 2% lidocaine jelly. No external hemorrhoids were encountered. The rectal tone was within normal limits. No lesions were palpated in the rectal vault. An Olympus colonoscope was advanced until the cecum, ileocecal valve and appendiceal orifice were clearly viewed. The prep was excellent. No scattered diverticulosis was encountered. No colonic polyps were found. Random biopsies obtained for colitis. Retroflexion of the scope demonstrated grade 1 internal hemorrhoids without active bleeding or inflammation. The colon was desufflated. The patient had tolerated the procedure well. Withdrawal time was over 6 minutes. FINDINGS: Aronchick preparation quality scale 1 (1-5) Internal hemorrhoids, grade 1 No external prolapsed hemorrhoids. No arteriovenous malformations. No adenomatous polyps. No focal colitis. Random cold forceps biopsies obtained for colitis RECOMMENDATIONS: Lower endoscopy as needed Plan - Discharge Summary New Discharge Prescriptions: Continue Omeprazole 40 mg PO DAILY SUMAtriptan succinate [Imitrex] 50 mg PO ONCE PRN PRN Reason: Migraine Headache Dicyclomine [Bentyl] 20 mg PO QID PRN PRN Reason: cramping Discharge Medication List Dicyclomine [Bentyl] 20 mg PO QID PRN 01/05/22 [History] Omeprazole 40 mg PO DAILY 01/05/22 [History] SUMAtriptan succinate [Imitrex] 50 mg PO ONCE PRN 01/05/22 [History] Follow up Appointment(s)/Referral(s): Loretta Lockwodo MD [STAFF PHYSICIAN] - 01/19/22 Patient Instructions/Handouts: *[facility] - (Anesthesia) Endoscopy Discharge Instructions, Colonoscopy (DC), Upper Endoscopy (DC), Hiatal Hernia (DC), GERD (Gastroesophageal Reflux Disease) (DC) Discharge Disposition: HOME SELF-CARE
== END 2022-01-06 13:11 | disposition home or self-care (01) ==
LOC: ORWHC2ENDO 09:18
PROVIDERS: ATTEND Surgery Plastic and Reconstructive Surgery
DX: K25.9 Gastric ulcer, unspecified as acute or chronic, without hemorrhage or perforation (principal); K64.0 First degree hemorrhoids; K52.9 Noninfective gastroenteritis and colitis, unspecified; K31.9 Disease of stomach and duodenum, unspecified; K44.9 Diaphragmatic hernia without obstruction or gangrene; K22.10 Ulcer of esophagus without bleeding; F41.9 Anxiety disorder, unspecified; Z79.899 Other long term (current) drug therapy; Z88.5 Allergy status to narcotic agent; Z88.8 Allergy status to other drugs, medicaments and biological substances; J45.909 Unspecified asthma, uncomplicated; K21.9 Gastro-esophageal reflux disease without esophagitis
CPT/HCPCS: 81025; 88305; 45380; 43239; J2704; J2001

== ENCOUNTER 2022-01-31 03:57 | Emergency (ER) | payer OTHER ==
[2022-01-31] MEDS ORDERED: MORPHINE SULFATE 4 MG/ML SYRINGE IV STA (04:10)
[2022-01-31] MEDS ORDERED: SODIUM CHLORIDE 0.9% 1,000 ML IV STA (04:10)
--- NOTE | 2022-01-31 04:10 | ED ---
Abdominal Pain HPI - General Source: EMS Mode of arrival: EMS Limitations: no limitations <Benigno Peng - Last Filed: 01/31/22 05:57> <Jonnie Lion - Last Filed: 01/31/22 08:42> - General Chief Complaint: Abdominal Pain Stated Complaint: abd pain Time Seen by Provider: 01/31/22 04:04 - Related Data Home Medications Medication Instructions Recorded Confirmed Dicyclomine [Bentyl] 20 mg PO QID PRN 01/05/22 01/06/22 Omeprazole 40 mg PO DAILY 01/05/22 01/06/22 SUMAtriptan succinate [Imitrex] 50 mg PO ONCE PRN 01/05/22 01/06/22 Allergies Allergy/AdvReac Type Severity Reaction Status Date / Time codeine Allergy Itching, Verified 01/31/22 04:10 Nausea diphenhydramine Allergy Anaphylaxis Verified 01/31/22 04:10 [From Benadryl] Review of Systems ROS Other: All systems not noted in ROS Statement are negative. <Benigno Peng - Last Filed: 01/31/22 05:57> ROS Other: All systems not noted in ROS Statement are negative. <Jonnie Lion - Last Filed: 01/31/22 08:42> ROS Statement: Those systems with pertinent positive or pertinent negative responses have been documented in the HPI. Past Medical History Past Medical History: Asthma Additional Past Medical History / Comment(s): scoliosis History of Any Multi-Drug Resistant Organisms: None Reported Past Surgical History: No Surgical Hx Reported Past Psychological History: Anxiety, Depression Smoking Status: Vaper Past Alcohol Use History: Occasional Past Drug Use History: None Reported <Benigno Peng - Last Filed: 01/31/22 05:57> General Exam Limitations: no limitations <Benigno Peng - Last Filed: 01/31/22 05:57> Course Vital Signs 01/31/22 04:06 Pulse Rate 79 Respiratory 20 Rate Blood Pressure 109/95 O2 Sat by Pulse 98 Oximetry Medical Decision Making - Lab Data Result diagrams: 01/31/22 04:36 01/31/22 04:36 <Benigno Peng - Last Filed: 01/31/22 05:57> - Lab Data Result diagrams: 01/31/22 04:36 01/31/22 04:36 <Jonnie Lion - Last Filed: 01/31/22 08:42> - Medical Decision Making Patient out to me by previous shift physician, Dr. Reyes. Briefly, patient is a 21-year-old female presents emergency department for abdominal pain. Patient states that she has chronic abdominal history. Vital signs upon arrival are within acceptable limits. Plan at sign out was to follow with pending ultrasound imaging. Laboratory evaluation obtained. CBC, coag panel, metabolic panel was obtained. No abnormalities except for some mild acidosis unclear etiology. Urinalysis is negative. Computed tomography scan of the abdomen and pelvis was reviewed showing some low density fluid in the pelvis. Ultrasound was read and reviewed by radiology showing no obvious findings of ovarian torsion. Patient reevaluated bedside at 8:45 AM found to be in stable medical condition. Patient asked if her symptomatology could be secondary to endometriosis. Patient does report that her symptoms are significantly worse around the time of her menstrual cycle. Patient given referral to gynecology. (Jonnie Lion) - Lab Data Lab Results 01/31/22 01/31/22 01/31/22 Range/Units 04:36 04:36 04:36 WBC 7.0 (3.8-10.6) k/uL RBC 4.38 (3.80-5.40) m/uL Hgb 13.0 (11.4-16.0) gm/dL Hct 38.3 (34.0-46.0) % MCV 87.4 (80.0-100.0) fL MCH 29.7 (25.0-35.0) pg MCHC 34.0 (31.0-37.0) g/dL RDW 11.6 (11.5-15.5) % Plt Count 282 (150-450) k/uL MPV 7.4 Neutrophils % 62 % Lymphocytes % 29 % Monocytes % 6 % Eosinophils % 2 % Basophils % 1 % Neutrophils # 4.3 (1.3-7.7) k/uL Lymphocytes # 2.0 (1.0-4.8) k/uL Monocytes # 0.4 (0-1.0) k/uL Eosinophils # 0.1 (0-0.7) k/uL Basophils # 0.0 (0-0.2) k/uL PT 10.3 (9.0-12.0) sec INR 0.9 (<1.2) APTT 25.1 (22.0-30.0) sec Sodium 140 (137-145) mmol/L Potassium 4.0 (3.5-5.1) mmol/L Chloride 109 H (98-107) mmol/L Carbon Dioxide 15 L (22-30) mmol/L Anion Gap 16 mmol/L BUN 7 (7-17) mg/dL Creatinine 0.54 (0.52-1.04) mg/dL Est GFR (CKD-EPI)AfAm >90 (>60 ml/min/1.73 sqM) Est GFR (CKD-EPI)NonAf >90 (>60 ml/min/1.73 sqM) Glucose 95 (74-99) mg/dL Calcium 10.0 (8.4-10.2) mg/dL Total Bilirubin 0.3 (0.2-1.3) mg/dL AST 21 (14-36) U/L ALT 16 (4-34) U/L Alkaline Phosphatase 49 (38-126) U/L Total Protein 7.4 (6.3-8.2) g/dL Albumin 4.8 (3.5-5.0) g/dL Amylase 58 (30-110) U/L Lipase 131 (23-300) U/L HCG, Quant <2.4 mIU/mL Urine Color Urine Appearance (Clear) Urine pH (5.0-8.0) Ur Specific [place] (1.001-1.035) Urine Protein (Negative) Urine Glucose (UA) (Negative) Urine Ketones (Negative) Urine Blood (Negative) Urine Nitrite (Negative) Urine Bilirubin (Negative) Urine Urobilinogen (<2.0) mg/dL Ur Leukocyte Esterase (Negative) Urine HCG, Qual (Not Detectd) 01/31/22 01/31/22 Range/Units 05:38 05:38 WBC (3.8-10.6) k/uL RBC (3.80-5.40) m/uL Hgb (11.4-16.0) gm/dL Hct (34.0-46.0) % MCV (80.0-100.0) fL MCH (25.0-35.0) pg MCHC (31.0-37.0) g/dL RDW (11.5-15.5) % Plt Count (150-450) k/uL MPV Neutrophils % % Lymphocytes % % Monocytes % % Eosinophils % % Basophils % % Neutrophils # (1.3-7.7) k/uL Lymphocytes # (1.0-4.8) k/uL Monocytes # (0-1.0) k/uL Eosinophils # (0-0.7) k/uL Basophils # (0-0.2) k/uL PT (9.0-12.0) sec INR (<1.2) APTT (22.0-30.0) sec Sodium (137-145) mmol/L Potassium (3.5-5.1) mmol/L Chloride (98-107) mmol/L Carbon Dioxide (22-30) mmol/L Anion Gap mmol/L BUN (7-17) mg/dL Creatinine (0.52-1.04) mg/dL Est GFR (CKD-EPI)AfAm (>60 ml/min/1.73 sqM) Est GFR (CKD-EPI)NonAf (>60 ml/min/1.73 sqM) Glucose (74-99) mg/dL Calcium (8.4-10.2) mg/dL Total Bilirubin (0.2-1.3) mg/dL AST (14-36) U/L ALT (4-34) U/L Alkaline Phosphatase (38-126) U/L Total Protein (6.3-8.2) g/dL Albumin (3.5-5.0) g/dL Amylase (30-110) U/L Lipase (23-300) U/L HCG, Quant mIU/mL Urine Color Light Yellow Urine Appearance Clear (Clear) Urine pH 6.5 (5.0-8.0) Ur Specific [place] 1.016 (1.001-1.035) Urine Protein Negative (Negative) Urine Glucose (UA) Negative (Negative) Urine Ketones Negative (Negative) Urine Blood Negative (Negative) Urine Nitrite Negative (Negative) Urine Bilirubin Negative (Negative) Urine Urobilinogen <2.0 (<2.0) mg/dL Ur Leukocyte Esterase Negative (Negative) Urine HCG, Qual Not Detected (Not Detectd) Disposition Is patient prescribed a controlled substance at d/c from ED?: No <Benigno Peng B - Last Filed: 01/31/22 05:57> Is patient prescribed a controlled substance at d/c from ED?: No Time of Disposition: 08:42 <Jonnie Lion - Last Filed: 01/31/22 08:42> Clinical Impression: Abdominal pain Disposition: HOME SELF-CARE Condition: Good Instructions (If sedation given, give patient instructions): Abdominal Pain (ED) Referrals: Lianna Gamble DO [Doctor of Osteopathic Medicine] - 1-2 days
[2022-01-31] MEDS ORDERED: HYDROmorphone 1 MG/ML 1 ML SYRINGE IVP STA ×2 (04:58→08:06)
[2022-01-31 05:16] LABS: Basophils % (A) 1 %; Eosinophils # (A) 0.1 k/uL (0-0.7); Eosinophils % (A) 2 %; HCT 38.3 % (34.0-46.0); Lymphocytes % (A) 29 %; MCH 29.7 pg (25.0-35.0); MCV 87.4 fL (80.0-100.0); Mean Platelet Volume 7.4; Monocytes # (A) 0.4 k/uL (0-1.0); Monocytes % (A) 6 %; Neutrophils # (A) 4.3 k/uL (1.3-7.7); Neutrophils % (A) 62 %; Platelet Count 282 k/uL (150-450); RBC 4.38 m/uL (3.80-5.40); RDW 11.6 % (11.5-15.5)
[2022-01-31 05:18] LABS: INR 0.9 (<1.2); Partial Thromboplastin Time 25.1 sec (22.0-30.0); Prothrombin Time 10.3 sec (9.0-12.0)
[2022-01-31 05:21] LABS: ALT 16 U/L (4-34); AST 21 U/L (14-36); African American GFR (CKD) >90 (>60 ml/min/1.73 sqM); Albumin 4.8 g/dL (3.5-5.0); Alkaline Phosphatase 49 U/L (38-126); Amylase 58 U/L (30-110); Anion Gap 16 mmol/L; Blood Urea Nitrogen 7 mg/dL (7-17); Carbon Dioxide 15 mmol/L (22-30); Chloride 109 mmol/L (98-107); Glucose 95 mg/dL (74-99); Lipase 131 U/L (23-300); Non-African American GFR(CKD) >90 (>60 ml/min/1.73 sqM); Sodium 140 mmol/L (137-145); Total Bilirubin 0.3 mg/dL (0.2-1.3); Total Protein 7.4 g/dL (6.3-8.2)
[2022-01-31 05:39] LABS: HCG,Quantitative Serum <2.4 mIU/mL
[2022-01-31 05:53] LABS: Appearance,Urine Clear (Clear); Bilirubin,Urine Negative (Negative); Blood,Urine Negative (Negative); Color,Urine Light Yellow; Glucose,Urine (UA) Negative (Negative); Ketones,Urine Negative (Negative); Leukocyte Esterase,Urine Negative (Negative); Nitrite,Urine Negative (Negative); PH, Urine 6.5 (5.0-8.0); Protein,Urine Negative (Negative); Specific Gravity,Urine 1.016 (1.001-1.035); Urobilinogen,Urine <2.0 mg/dL (<2.0)
[2022-01-31] MEDS ORDERED: ACET/COD 300 MG/30 MG STARTER PACK 6 TAB BTL PO STA (06:14)
[2022-01-31] MEDS ORDERED: IBUPROFEN 600 MG STARTER PACK 4 TAB BTL PO STA (06:14)
--- NOTE | 2022-01-31 06:51 | CT ---
EXAMINATION TYPE: CT abdomen pelvis wo con DATE OF EXAM: 01/31/2022 COMPARISON: None HISTORY: Abdominal pain CT DLP: 338.1 mGycm Automated exposure control for dose reduction was used. Images obtained from the diaphragm to the floor the pelvis with no contrast. Lung bases are clear. No pleural effusion. Heart size is normal. No pericardial effusion. Liver splee n and stomach pancreas gallbladder appear intact. The bile ducts are not dilated. There is no adrenal mass. Kidneys have normal size and contour. No hydronephrosis. No retroperitoneal adenopathy. Ureters are not dilated. No evidence of pelvic mass. Bladder distends smoothly. Uterus i s anteverted. There is small amount of free fluid in the cul-de-sac. This has low attenuation. Append ix is posterior and appears normal. There is no mesenteric edema. No ascites or free air. No sign of a bowel obstruction. The lumbar spine is intact. No compression fracture. Bony pelvis is intact. The hip joints are intact . IMPRESSION: There is small amount of low-density fluid in the pelvis could be physiologic. Normal appendix.
[2022-01-31] MEDS ORDERED: ONDANSETRON 4 MG/2 ML VIAL IVP STA (08:00)
--- NOTE | 2022-01-31 08:28 | US ---
EXAMINATION TYPE: US transvaginal DATE OF EXAM: 01/31/2022 COMPARISON: CT 01/31/2022 CLINICAL HISTORY: 21-year-old female assess for torsion. Pelvic pain x 1 day TECHNIQUE: Transvaginal ER exam Date of LMP: 01/30/2022 FINDINGS: EXAM MEASUREMENTS: Uterus: 7.6 x 3.8 x 3.9 cm Endometrial Stripe: 0.6 cm Right Ovary: 3.1 x 2.0 x 1.9 cm for a volume of 6.0 mL. Left Ovary: 3.3 x 1.7 x 2.3 cm for a volume of 6.5 mL 1. Uterus: anteverted 2. Endometrium: appears wnl 3. Right Ovary: multiple follicles 4. Left Ovary: multiple follicles Spectral, color and waveform doppler imaging shows good arterial flow within the ovaries and good v enous flow within the right ovary; unable to obtain venous flow within the left ovary. 5. Bilateral Adnexa: small amount of fluid left adnexa 6. Posterior cul-de-sac: small amount of free fluid IMPRESSION: 1. Normal follicular change in the ovaries. Both ovaries measure normal size up to 6.5 mL. No sonogra phic evidence for ovarian torsion on the right. While the human resources manager manufacturing was unable to obtain venous wav eforms in the left ovary, the overall morphology does not suggest ovarian torsion at this time. Consi aristides short interval clinical surveillance as the venous waveform could not be obtained and if the melvina ent's pelvic pain is located on the left. 2. Mild cul-de-sac and left adnexal free fluid may be physiologic.
[2022-01-31 09:04] VITALS: BP 100/68; PULSE 68; RESP 16
== END 2022-01-31 09:00 | disposition home or self-care (01) ==
LOC: EC 03:57
DX: R10.9 Unspecified abdominal pain (principal); E87.2 Acidosis; J45.909 Unspecified asthma, uncomplicated; F17.290 Nicotine dependence, other tobacco product, uncomplicated; Z88.5 Allergy status to narcotic agent; Z88.8 Allergy status to other drugs, medicaments and biological substances
CPT/HCPCS: 36415; 80053; 82150; 83690; 85025; 85610; 85730; 81003; 81025; 84702; 93975; 76830; 74176; 99284; 96374; 96375; 96376; 96361; J2270; J2405; J1170

== ENCOUNTER 2022-05-20 13:35 | Day surgery (SDC) | payer OTHER ==
[2022-05-19 13:45] VITALS: BMI 20.6
--- NOTE | 2022-05-20 10:18 | P.GSHP ---
History of Present Illness H&P Date: 05/20/22 CHIEF COMPLAINT: Cholecystitis HISTORY OF PRESENT ILLNESS: The patient is a 21-year-old female who presents with history of epigastric including right upper quadrant abdominal pain. She underwent diagnostic studies for her gallbladder. Separately her clinical picture was consistent with cholecystitis. Now she presents for surgical intervention. PAST MEDICAL HISTORY: Please see list PAST SURGICAL HISTORY: Please see list MEDICATIONS: Please see list ALLERGIES: Please see list SOCIAL HISTORY: Please see list FAMILY HISTORY: Please see list REVIEW OF ORGAN SYSTEMS: CONSTITUTIONAL: No reports of fevers or chills. HEENT: Denies any troubles with the vision or hearing. ENDOCRINE: No reports of hypothyroidism. No diabetes. RESPIRATORY: No recent pneumonias. CARDIOVASCULAR: Denies chest pain or palpitations GI: No blood in stools or constipation. MUSCULOSKELETAL: Has occasional joint pain including back pain. NEURO: No seizure disorders or headaches. No recent stroke. PSYCH: No depression or suicidal ideation. GENITOURINARY: No active blood in urine. No urinary hesitancy. HEMATOLOGIC: No personal or family history of DVTs or pulmonary emboli. SKIN: No skin cancer. PHYSICAL EXAM: VITAL SIGNS: Afebrile vital signs stable GENERAL: Well-developed pleasant in no acute distress. HEENT: No scleral icterus. Extraocular movements grossly intact. Moist buccal mucosa. NECK: Supple without lymphadenopathy. CHEST: Unlabored respirations. Equal bilateral excursions. CARDIOVASCULAR: Regular rate regular rhythm rhythm. Distal 2+ pulses. ABDOMEN: Soft, nondistended. Tender along the epigastrium and right upper quadrant. MUSCULOSKELETAL: No clubbing, cyanosis, or edema. NEURO: Cranial nerves II to XII within normal limits. No focal or lateralizing signs. PSYCH: Alert and oriented to person, place and time. SKIN: Well-perfused good skin turgor. ASSESSMENT: 1. Epigastric and right upper quadrant abdominal pain 2. Chronic cholecystitis 3. Symptomatic gallstones. PLAN: 1. Will need a robotic cholecystectomy possible open. Benefits and risks were described. 2. Heparin for DVT prophylaxis 5000 units. 3. Antibiotic prophylaxis. 4. CBC and CMP on day of procedure 5. Non-narcotic pre and post op pain management reviewed. 6. Indocyanine green for biliary imaging. Past Medical History Past Medical History: Asthma Additional Past Medical History / Comment(s): scoliosis, hiatal hernia, IBS, states nausea , vomiting and bloating due to gall bladder problems. History of Any Multi-Drug Resistant Organisms: None Reported Past Surgical History: No Surgical Hx Reported Additional Past Surgical History / Comment(s): wisdom teeth, colonoscopy, EGD Past Anesthesia/Blood Transfusion Reactions: No Reported Reaction Past Psychological History: Anxiety Smoking Status: Former smoker, Vaper Past Alcohol Use History: None Reported Additional Past Alcohol Use History / Comment(s): quit smoking 2016, started smoking age 13., currently vapes. Past Drug Use History: None Reported Medications and Allergies Home Medications Medication Instructions Recorded Confirmed Type Omeprazole 40 mg PO DAILY 01/05/22 05/19/22 History SUMAtriptan succinate [Imitrex] 50 mg PO ONCE PRN 01/05/22 05/19/22 History Albuterol Inhaler [Ventolin Hfa 1 puff INHALATION DIRECTED PRN 05/19/22 05/19/22 History Inhaler] Albuterol Nebulized [Ventolin 2.5 mg INHALATION DIRECTED PRN 05/19/22 05/19/22 History Nebulized] Allergies Allergy/AdvReac Type Severity Reaction Status Date / Time apricot Allergy Unknown Rash/Hives Verified 05/19/22 13:33 blueberry Allergy Unknown Rash/Hives Verified 05/19/22 13:33 kiwi Allergy Unknown Rash/Hives Verified 05/19/22 13:33 codeine Allergy Itching, Verified 05/19/22 13:18 Nausea diphenhydramine Allergy Anaphylaxis Verified 05/19/22 13:18 [From Benadryl]
[~2022-05-20 13:35] MED LIST changes: +ACETAMINOPHEN TAB 500 MG TAB PO STA; +DEXAMETHASONE SOD PHOSPHATE 4 MG/ML 1 ML VIAL IV ONE; +GABAPENTIN 300 MG CAP PO STA; +HEPARIN SODIUM,PORCINE/PF 5,000 UNIT/0.5 ML SYRINGE SQ PRN; +HYDROmorphone 0.5 MG/0.5 ML SYRINGE IVP PRN; +LIDOCAINE 1% (10MG/ML) FOR IV START INTRADERMA PRN; +MELOXICAM 7.5 MG TAB PO SCH; +MIDAZOLAM 2 MG/2 ML VIAL IV PRN; +ONDANSETRON 4 MG/2 ML VIAL IVP ONE; +SCOPOLAMINE 1 MG/72 HR PATCH TRANSDERM SCH
[2022-05-20 14:26] LABS: Basophils % (A) 1 %; Eosinophils # (A) 0.1 k/uL (0-0.7); Eosinophils % (A) 3 %; HCT 36.5 % (34.0-46.0); HGB 12.9 gm/dL (11.4-16.0); Lymphocytes # (A) 1.5 k/uL (1.0-4.8); Lymphocytes % (A) 32 %; MCH 30.6 pg (25.0-35.0); MCHC 35.4 g/dL (31.0-37.0); MCV 86.5 fL (80.0-100.0); Mean Platelet Volume 7.6; Monocytes # (A) 0.3 k/uL (0-1.0); Monocytes % (A) 6 %; Neutrophils # (A) 2.6 k/uL (1.3-7.7); Neutrophils % (A) 56 %; Platelet Count 298 k/uL (150-450); RBC 4.22 m/uL (3.80-5.40); RDW 11.9 % (11.5-15.5); WBC 4.7 k/uL (3.8-10.6)
[2022-05-20 14:34] LABS: African American GFR (CKD) >90 (>60 ml/min/1.73 sqM); Albumin 4.9 g/dL (3.5-5.0); Anion Gap 10 mmol/L; Blood Urea Nitrogen 8 mg/dL (7-17); Carbon Dioxide 22 mmol/L (22-30); Chloride 109 mmol/L (98-107); Glucose 84 mg/dL (74-99); Non-African American GFR(CKD) >90 (>60 ml/min/1.73 sqM); Potassium 4.1 mmol/L (3.5-5.1); Sodium 141 mmol/L (137-145); Total Protein 7.4 g/dL (6.3-8.2)
[2022-05-20 14:35] LABS: ALT 14 U/L (4-34); AST 20 U/L (14-36); Alkaline Phosphatase 45 U/L (38-126); Calcium 9.3 mg/dL (8.4-10.2); Total Bilirubin 0.7 mg/dL (0.2-1.3)
[2022-05-20] MEDS ORDERED: MIDAZOLAM 2 MG/2 ML VIAL IVP ONE (14:53)
[2022-05-20] MEDS ORDERED: LIDOCAINE 4% LTA KIT (4 ML) TOPICAL ONE (16:30)
[2022-05-20] MEDS ORDERED: PROPOFOL 10 MG/ML 20 ML VIAL IV ONE (16:30)
[2022-05-20] MEDS ORDERED: ROCURONIUM 10 MG/ML (5 ML VIAL) IV ONE (16:30)
[2022-05-20] MEDS ORDERED: SUCCINYLCHOLINE CHLORIDE 200 MG/10 ML VIAL IV ONE (16:30)
[2022-05-20] MEDS ORDERED: HYDROmorphone (PF) 1 MG/ML ONE (16:30)
[2022-05-20] MEDS ORDERED: GLYCOPYRROLATE 0.2 MG/ML 2 ML VIAL ONE (16:30)
[2022-05-20] MEDS ORDERED: ePHEDrine 50 MG/ML 1 ML VIAL ONE (16:30)
[2022-05-20] MEDS ORDERED: fentaNYL (PF) 50 MCG/ML 2 ML AMP ONE (16:30)
[2022-05-20] MEDS ORDERED: MIDAZOLAM 2 MG/2 ML VIAL ONE (16:30)
[2022-05-20] MEDS ORDERED: BUPIVACAIN-EPI 0.25%-1:200,000 30 ML VIAL SQ ONE (17:03)
[2022-05-20] MEDS ORDERED: LACTATED RINGERS 1,000 ML IV ONE ×2 (17:04)
[2022-05-20 18:04] VITALS: TEMP 97
[2022-05-20 18:09] VITALS: RESP 16
--- NOTE | 2022-05-20 18:10 | P.OP ---
Date of Procedure: 05/20/22 Description of Procedure: SURGEON: LORETTA LOCKWOOD MD PREOPERATIVE DIAGNOSES: 1. Chronic cholecystitis 2. Right upper quadrant abdominal pain 3. Migraines 4. Gastroesophageal reflux disease POSTOPERATIVE DIAGNOSES: 1. Chronic cholecystitis 2. Right upper quadrant abdominal pain 3. Migraines 4. Gastroesophageal reflux disease OPERATION: Robotic-assisted da Vanessa Xi laparoscopic cholecystectomy, multiport with FIREFLY ESTIMATED BLOOD LOSS: 5 mL. SPECIMENS REMOVED: Gallbladder. COMPLICATIONS: None. OPERATIVE FINDINGS: 1. Chronic cholecystitis INDICATIONS: The patient is a 21-year-old female who presents with symptomatic gallstones. Robotic assisted laparoscopic approach was described. Benefits and risks of the procedure including but not limited to bleeding, infection, injury to the biliary tree was described. Informed consent was obtained. DESCRIPTION OF PROCEDURE: Patient was brought to the operating room, placed in supine position. After general induction, the abdomen had been prepped and draped in standard sterile fashion. The robotic da Vanessa XI system was primed. After a timeout protocol was performed, the patient had been prepped and draped in standard sterile fashion. The patient was injected with indocyanine green. A 5 mm 0 degrees laparoscopic trocar entry was performed along the left upper quadrant. The abdomen insufflated to 15 mmHg pressure which was tolerated well. Diagnostic laparoscopy demonstrated no injury to bowel viscera or mesentery. The liver surface was unremarkable. Next, two 8 mm robotic ports were placed along the right upper abdomen. The camera 8-mm port was maintained along the epigastrium. Another 8 mm port was placed along the left upper abdominal wall after exchanging the 5 mm port. Please note that the ports were placed at least 10 to 15 cm away from the target anatomy of the gallbladder. The robot was docked along the left lateral abdomen. The patient was repositioned in reverse Trendelenburg position. Using a grasper for arm 3, a grasper for arm 4, including hook cautery for arm 1, the robotic system was docked and primed as described. Instruments were interchanged by the maintenance assistant including hook cautery, Bovie cautery and clip appliers. I had sat at the console. The gallbladder was scarred with peritoneal adhesions. Lysis of adhesions was performed to free the gallbladder from the surrounding tissues. Next attention was brought to the infundibulum and cystic structures. The infundibulum and cystic duct were dissected free from surrounding tissues. The cystic duct was isolated. FIREFLY was used to identify the cystic artery and cystic structures. A critical view of safety was obtained. Large PLASTIC clips were used throughout the entire case. Using a clip breaker machine operator, 2 clips were placed at the junction of the infundibulum and cystic duct. The cystic duct was divided between clips. Next, the cystic artery was similarly clipped and cauterized. Electro-Bovie cautery was used to remove the gallbladder from the hepatic fossa. Hemostasis was checked and found to be adequate. The robot was undocked. I re-scrubbed into the case. Using a 10 mm Endo Catch bag via the left upper quadrant incision, the specimen was removed from the abdominal cavity. All pneumoperitoneum instruments were evacuated from the abdominal cavity. The incisions were reapproximated using 4-0 Monocryl in an interrupted subcuticular fashion. Fascial defects were less than 8 mm in size. Please note along the trocar sites, local anesthetic was placed as a field block prior to insertion of all instruments. Liquid glue was applied to the skin. At the end of the procedure needle, sponge, and instrument count had been verified correct by the surgical pathologist. The patient was transferred to postanesthesia care unit in stable condition. Intraoperative films were shared with the patient's family. Plan - Discharge Summary Discharge Rx Participant: No New Discharge Prescriptions: New Simethicone [Gas-X] 125 mg PO AC-TID PRN #20 capsule PRN Reason: Pain Acetaminophen Tab [Tylenol Tab] 1,000 mg PO Q6HR PRN #30 tablet PRN Reason: Pain Ibuprofen [Motrin] 600 mg PO Q8HR PRN #30 tab PRN Reason: Pain Continue Omeprazole 40 mg PO DAILY Albuterol Nebulized [Ventolin Nebulized] 2.5 mg INHALATION DIRECTED PRN PRN Reason: Shortness Of Breath Albuterol Inhaler [Ventolin Hfa Inhaler] 1 puff INHALATION DIRECTED PRN PRN Reason: Shortness Of Breath SUMAtriptan succinate [Imitrex] 50 mg PO ONCE PRN PRN Reason: Migraine Headache Discharge Medication List Omeprazole 40 mg PO DAILY 01/05/22 [History] SUMAtriptan succinate [Imitrex] 50 mg PO ONCE PRN 01/05/22 [History] Albuterol Inhaler [Ventolin Hfa Inhaler] 1 puff INHALATION DIRECTED PRN 05/19/22 [History] Albuterol Nebulized [Ventolin Nebulized] 2.5 mg INHALATION DIRECTED PRN 05/19/22 [History] Acetaminophen Tab [Tylenol Tab] 1,000 mg PO Q6HR PRN #30 tablet 05/20/22 [Rx] Ibuprofen [Motrin] 600 mg PO Q8HR PRN #30 tab 05/20/22 [Rx] Simethicone [Gas-X] 125 mg PO AC-TID PRN #20 capsule 05/20/22 [Rx] Follow up Appointment(s)/Referral(s): Loretta Lockwood MD [STAFF PHYSICIAN] - 05/25/22 (TELEHEALTH) Patient Instructions/Handouts: *[facility] - Laparoscopic Cholecystectomy D ischarge Instructions, *[facility] - Managing Your Pain After Surgery Without Opioids, Cholecystitis (ED) Activity/Diet/Wound Care/Special Instructions: Recommend low-fat diet for the next 2 days. No lifting over 10 pounds in 2 weeks until Jun 03. May shower. No bath tub soaks for two weeks until Jun 03. Diet as tolerated. Use Tylenol, simethicone and ibuprofen or Aleve scheduled for the next 24-48 hours for best pain relief. Use ice along incisions for today to prevent swelling. Discharge Disposition: HOME SELF-CARE
[2022-05-20] MEDS ORDERED: KETOROLAC 15 MG/ML 1 ML VIAL IVP PRN (18:14)
[2022-05-20 18:49] VITALS: BP 110/65
[2022-05-20 19:04] VITALS: PULSE 99
--- NOTE | 2022-05-21 12:48 | P.PN ---
Progress Note - Text Progress Note Date: 05/21/22 Patient contacted at home. Reports nausea. Nausea after anesthesia expected less than 24 hours after surgery.
== END 2022-05-20 19:40 | disposition home or self-care (01) ==
LOC: OR 13:35
PROVIDERS: ATTEND Surgery Plastic and Reconstructive Surgery
DX: K80.10 Calculus of gallbladder with chronic cholecystitis without obstruction (principal); J45.909 Unspecified asthma, uncomplicated; K21.9 Gastro-esophageal reflux disease without esophagitis; Z87.891 Personal history of nicotine dependence
CPT/HCPCS: 81025; 80053; 85025; 47562; J2250; J0330; J1100; J0690; J2405; J3010; J1170; J2704; J1644; 88304

== ENCOUNTER 2022-05-21 09:38 | Inpatient (IN) | payer OTHER ==
[2022-05-21] MEDS ORDERED: PANTOPRAZOLE 40 MG/10 ML VIAL IVP STA (12:30)
[2022-05-21] MEDS ORDERED: ONDANSETRON 4 MG/2 ML VIAL IVP STA (12:30)
[2022-05-21] MEDS ORDERED: SODIUM CHLORIDE 0.9% 1,000 ML IV STA (12:30)
[2022-05-21] MEDS ORDERED: MORPHINE SULFATE 4 MG/ML SYRINGE IV STA (12:30)
--- NOTE | 2022-05-21 12:48 | ED ---
General Adult HPI - General Chief complaint: Abdominal Pain Stated complaint: Post Op Swelling Time Seen by Provider: 05/21/22 12:20 Source: patient, RN notes reviewed, old records reviewed Mode of arrival: ambulatory Limitations: no limitations - History of Present Illness Initial comments: Patient is a 21-year-old female with past medical history remarkable for asthma, IBS presents to emergency Department with worsening abdominal pain. Following gallbladder surgery occurred yesterday outpatient. Patient's surgeon is Dr. Lockwood. Per patient, was feeling good yesterday but overnight had worsening pain and also no swelling located over the left upper quadrant of her abdomen at the site of one of her surgical incisions that is since gone down. She had laparoscopic surgery. Has been having generalized abdominal pain since then. No fevers. States she believes he had she had a syncopal episode at home as well. No vomiting but does endorse nausea. Had one episode of diarrhea that was nonbloody. Denies any urinary complaints. Denies being . Denies any chest pain, shortness breath, other symptoms at this time. Presents for further evaluation of this time. Is not on blood thinners. - Related Data Home Medications Medication Instructions Recorded Confirmed SUMAtriptan succinate [Imitrex] 50 mg PO ONCE PRN 01/05/22 05/21/22 Previous Rx's Medication Instructions Recorded Acetaminophen Tab [Tylenol Tab] 1,000 mg PO Q6HR PRN #30 tablet 05/20/22 Ibuprofen [Motrin] 600 mg PO Q8HR PRN #30 tab 05/20/22 Simethicone [Gas-X] 125 mg PO AC-TID PRN #20 capsule 05/20/22 Allergies Allergy/AdvReac Type Severity Reaction Status Date / Time apricot Allergy Unknown Rash/Hives Verified 05/21/22 13:44 blueberry Allergy Unknown Rash/Hives Verified 05/21/22 13:44 kiwi Allergy Unknown Rash/Hives Verified 05/21/22 13:44 codeine Allergy Itching, Verified 05/21/22 13:44 Nausea diphenhydramine Allergy Anaphylaxis Verified 05/21/22 13:44 [From Benadryl] Milk Containing Products Allergy Nausea & Verified 05/21/22 13:44 [Dairy] Vomiting & Diarrhea gluten AdvReac Nausea & Verified 05/21/22 13:44 Vomiting & Diarrhea RYE BREAD Allergy Unknown Uncoded 05/21/22 09:44 Review of Systems ROS Statement: Those systems with pertinent positive or pertinent negative responses have been documented in the HPI. Review of Systems: CONST: Denies fever EYES: Denies blurry vision ENT: Denies nasal congestion C/V: Denies Chest pain RESP: Denies shortness of breath GI: Endorses abdominal pain : Denies dysuria SKIN: Denies rash. MSK: Denies joint pain. NEURO: Denies headache ROS Other: All systems not noted in ROS Statement are negative. Past Medical History Past Medical History: Asthma Additional Past Medical History / Comment(s): scoliosis, hiatal hernia, IBS, states nausea , vomiting and bloating due to gall bladder problems. History of Any Multi-Drug Resistant Organisms: None Reported Past Surgical History: No Surgical Hx Reported, Cholecystectomy Additional Past Surgical History / Comment(s): wisdom teeth, colonoscopy, EGD Past Anesthesia/Blood Transfusion Reactions: No Reported Reaction Past Psychological History: Anxiety Smoking Status: Former smoker, Vaper Past Alcohol Use History: None Reported Past Drug Use History: None Reported General Exam - General Exam Comments Initial Comments: General: Appears in mild to moderate distress secondary to abdominal pain. HEAD: Normal with no signs of head trauma. EYES: PERRLA, EOMI, conjunctiva normal, no discharge. ENT: Hearing grossly intact, normal oropharynx. RESPIRATORY: Clear breath sounds bilaterally. No wheezes, rales, or rhonchi. C/V: Regular rate and rhythm. S1 and S2 auscultated, no edema, peripheral pulses 2+ and intact throughout ABD: Abdomen is soft, no significant distention. Generalized tenderness to palpation with guarding. No obvious rebound tenderness to palpation. No CVA tenderness to percussion. Focal tenderness in the left upper quadrant at the site of a surgical incision. No skin changes. No obvious swelling. EXT: Normal range of motion, no obvious deformity SKIN: No rashes or lesions observed on exposed skin. NEURO: Alert and oriented 4. Limitations: no limitations Course Vital Signs 05/21/22 05/21/22 05/21/22 09:40 13:12 14:45 Temperature 98.7 F Pulse Rate 96 75 78 Respiratory 22 18 18 Rate Blood Pressure 91/53 101/64 103/53 O2 Sat by Pulse 97 100 96 Oximetry Medical Decision Making - Medical Decision Making Based on the patient's presentation and physical exam, I'm concerned for intra- abdominal process for current symptoms including possible postop complication such as hematoma or infection considering she did have her cholecystectomy yesterday. We will obtain abdominal laboratory studies, as well as a CT abdomen and pelvis. She'll be given IV analgesic medications and fluids. Vital signs within acceptable limits and we will continue to monitor. Screening EKG will be obtained due to the concern for syncopal episode earlier. She was in agreement this plan. EKG shows no signs of acute ischemia.Patient's vital signs are remarkable for a hemoglobin of 11.0. This is a drop of almost 2 from yesterday. Coags are within normal limits. Lactic acid is slightly elevated to 2.1. Patient is not . Urinalysis is within accepted limits. CT imaging is interpreted by myself shows what appears to be a moderate to large amount of intraperitoneal blood likely secondary to the recent surgery. Dr. Lockwood was immediately paged. On reevaluation, vital signs remained within acceptable limits, patient is normotensive, not tachycardic. She was made nothing by mouth. I spoke with Dr. Lockwood, reviewed CT imaging and laboratory studies and requested that a repeat CBC be obtained at 8 PM. This was ordered included to nursing staff. She requested that the patient be maintained at nothing by mouth and be admitted under her service for monitoring. She'll be placed on IV fluids and symptomatic medications. She was in agreement this plan. Patient was admitted in serious condition with postop bleeding following cholecystectomy. I updated the patient and she expressed understanding. She was in agreement this plan. - Lab Data Result diagrams: 05/21/22 13:07 05/21/22 13:07 Lab Results 05/21/22 05/21/22 05/21/22 Range/Units 12:50 13:00 13:05 WBC (3.8-10.6) k/uL RBC (3.80-5.40) m/uL Hgb (11.4-16.0) gm/dL Hct (34.0-46.0) % MCV (80.0-100.0) fL MCH (25.0-35.0) pg MCHC (31.0-37.0) g/dL RDW (11.5-15.5) % Plt Count (150-450) k/uL MPV Neutrophils % % Lymphocytes % % Monocytes % % Eosinophils % % Basophils % % Neutrophils # (1.3-7.7) k/uL Lymphocytes # (1.0-4.8) k/uL Monocytes # (0-1.0) k/uL Eosinophils # (0-0.7) k/uL Basophils # (0-0.2) k/uL PT (9.0-12.0) sec INR (<1.2) APTT (22.0-30.0) sec Sodium (137-145) mmol/L Potassium (3.5-5.1) mmol/L Chloride (98-107) mmol/L Carbon Dioxide (22-30) mmol/L Anion Gap mmol/L BUN (7-17) mg/dL Creatinine (0.52-1.04) mg/dL Est GFR (CKD-EPI)AfAm (>60 ml/min/1.73 sqM) Est GFR (CKD-EPI)NonAf (>60 ml/min/1.73 sqM) Glucose (74-99) mg/dL Lactic Ac Sepsis Rflx Plasma Lactic Acid Wilbert (0.7-2.0) mmol/L Calcium (8.4-10.2) mg/dL Total Bilirubin (0.2-1.3) mg/dL AST (14-36) U/L ALT (4-34) U/L Alkaline Phosphatase (38-126) U/L Total Protein (6.3-8.2) g/dL Albumin (3.5-5.0) g/dL Amylase (30-110) U/L Lipase (23-300) U/L HCG, Qual Urine Color Yellow Urine Appearance Cloudy H (Clear) Urine pH 6.0 (5.0-8.0) Ur Specific [place] 1.033 (1.001-1.035) Urine Protein 1+ H (Negative) Urine Glucose (UA) Trace H (Negative) Urine Ketones Trace H (Negative) Urine Blood Negative (Negative) Urine Nitrite Negative (Negative) Urine Bilirubin Negative (Negative) Urine Urobilinogen <2.0 (<2.0) mg/dL Ur Leukocyte Esterase Negative (Negative) Urine RBC 2 (0-5) /hpf Urine WBC 10 H (0-5) /hpf Ur Squamous Epith Cells 12 H (0-4) /hpf Urine Bacteria Rare H (None) /hpf Hyaline Casts 31 H (0-2) /lpf Urine Mucus Many H (None) /hpf Blood Type A Positive Blood Type Confirm A Positive Blood Type Recheck No Previous Record Bld Type Recheck Status CABO Indicated Antibody Screen NEGATIVE Spec Expiration Date 05/24/2022229905/21/22 05/21/22 05/21/22 Range/Units 13:07 13:07 13:07 WBC 11.4 H (3.8-10.6) k/uL RBC 3.67 L (3.80-5.40) m/uL Hgb 11.0 L (11.4-16.0) gm/dL Hct 32.2 L (34.0-46.0) % MCV 87.7 (80.0-100.0) fL MCH 30.1 (25.0-35.0) pg MCHC 34.3 (31.0-37.0) g/dL RDW 12.4 (11.5-15.5) % Plt Count 304 (150-450) k/uL MPV 8.3 Neutrophils % 83 % Lymphocytes % 9 % Monocytes % 6 % Eosinophils % 0 % Basophils % 0 % Neutrophils # 9.5 H (1.3-7.7) k/uL Lymphocytes # 1.0 (1.0-4.8) k/uL Monocytes # 0.7 (0-1.0) k/uL Eosinophils # 0.0 (0-0.7) k/uL Basophils # 0.0 (0-0.2) k/uL PT 10.1 (9.0-12.0) sec INR 1.0 (<1.2) APTT 20.2 L (22.0-30.0) sec Sodium 138 (137-145) mmol/L Potassium 3.7 (3.5-5.1) mmol/L Chloride 106 (98-107) mmol/L Carbon Dioxide 25 (22-30) mmol/L Anion Gap 7 mmol/L BUN 5 L (7-17) mg/dL Creatinine 0.53 (0.52-1.04) mg/dL Est GFR (CKD-EPI)AfAm >90 (>60 ml/min/1.73 sqM) Est GFR (CKD-EPI)NonAf >90 (>60 ml/min/1.73 sqM) Glucose 93 (74-99) mg/dL Lactic Ac Sepsis Rflx Plasma Lactic Acid Wilbert (0.7-2.0) mmol/L Calcium 9.2 (8.4-10.2) mg/dL Total Bilirubin 0.5 (0.2-1.3) mg/dL AST 29 (14-36) U/L ALT 24 (4-34) U/L Alkaline Phosphatase 46 (38-126) U/L Total Protein 7.0 (6.3-8.2) g/dL Albumin 4.7 (3.5-5.0) g/dL Amylase 39 (30-110) U/L Lipase 51 (23-300) U/L HCG, Qual Not Detected Urine Color Urine Appearance (Clear) Urine pH (5.0-8.0) Ur Specific [place] (1.001-1.035) Urine Protein (Negative) Urine Glucose (UA) (Negative) Urine Ketones (Negative) Urine Blood (Negative) Urine Nitrite (Negative) Urine Bilirubin (Negative) Urine Urobilinogen (<2.0) mg/dL Ur Leukocyte Esterase (Negative) Urine RBC (0-5) /hpf Urine WBC (0-5) /hpf Ur Squamous Epith Cells (0-4) /hpf Urine Bacteria (None) /hpf Hyaline Casts (0-2) /lpf Urine Mucus (None) /hpf Blood Type Blood Type Confirm Blood Type Recheck Bld Type Recheck Status Antibody Screen Spec Expiration Date 05/21/22 05/21/22 Range/Units 13:07 13:46 WBC (3.8-10.6) k/uL RBC (3.80-5.40) m/uL Hgb (11.4-16.0) gm/dL Hct (34.0-46.0) % MCV (80.0-100.0) fL MCH (25.0-35.0) pg MCHC (31.0-37.0) g/dL RDW (11.5-15.5) % Plt Count (150-450) k/uL MPV Neutrophils % % Lymphocytes % % Monocytes % % Eosinophils % % Basophils % % Neutrophils # (1.3-7.7) k/uL Lymphocytes # (1.0-4.8) k/uL Monocytes # (0-1.0) k/uL Eosinophils # (0-0.7) k/uL Basophils # (0-0.2) k/uL PT (9.0-12.0) sec INR (<1.2) APTT (22.0-30.0) sec Sodium (137-145) mmol/L Potassium (3.5-5.1) mmol/L Chloride (98-107) mmol/L Carbon Dioxide (22-30) mmol/L Anion Gap mmol/L BUN (7-17) mg/dL Creatinine (0.52-1.04) mg/dL Est GFR (CKD-EPI)AfAm (>60 ml/min/1.73 sqM) Est GFR (CKD-EPI)NonAf (>60 ml/min/1.73 sqM) Glucose (74-99) mg/dL Lactic Ac Sepsis Rflx Y Plasma Lactic Acid Wilbert 2.1 H* (0.7-2.0) mmol/L Calcium (8.4-10.2) mg/dL Total Bilirubin (0.2-1.3) mg/dL AST (14-36) U/L ALT (4-34) U/L Alkaline Phosphatase (38-126) U/L Total Protein (6.3-8.2) g/dL Albumin (3.5-5.0) g/dL Amylase (30-110) U/L Lipase (23-300) U/L HCG, Qual Urine Color Urine Appearance (Clear) Urine pH (5.0-8.0) Ur Specific [place] (1.001-1.035) Urine Protein (Negative) Urine Glucose (UA) (Negative) Urine Ketones (Negative) Urine Blood (Negative) Urine Nitrite (Negative) Urine Bilirubin (Negative) Urine Urobilinogen (<2.0) mg/dL Ur Leukocyte Esterase (Negative) Urine RBC (0-5) /hpf Urine WBC (0-5) /hpf Ur Squamous Epith Cells (0-4) /hpf Urine Bacteria (None) /hpf Hyaline Casts (0-2) /lpf Urine Mucus (None) /hpf Blood Type Blood Type Confirm Blood Type Recheck Bld Type Recheck Status Antibody Screen Spec Expiration Date - EKG Data -: EKG Interpreted by Me EKG Comments: 12-lead Electrocardiogram Interpretation Note EKG was reviewed and interpreted by myself. 12-lead ECG performed at 1325 is interpreted by me as revealing normal sinus rhythm at a rate of 68 beats per m inute. Rozel is normal. MA interval is 162 ms, QRS duration is 79 ms, QTc is 412 ms.. There were no ST or T wave abnormalities to suggest myocardial ischemia or injury. R wave progression across the precordium was satisfactory. By my interpretation this EKG is non-diagnostic for acute ischemia. No prior EKG for comparison. Disposition Clinical Impression: Post-op bleeding, Acute abdomen Disposition: ADMITTED IP TO THIS HOSP Condition: Serious Time of Disposition: 14:55
[2022-05-21 13:12] LABS: Appearance,Urine Cloudy (Clear); Bacteria,Urine Rare /hpf; Bilirubin,Urine Negative (Negative); Blood,Urine Negative (Negative); Color,Urine Yellow; Glucose,Urine (UA) Trace (Negative); Hyaline Casts,Urine 31 /lpf (0-2); Ketones,Urine Trace (Negative); Leukocyte Esterase,Urine Negative (Negative); Mucus,Urine Many /hpf; Nitrite,Urine Negative (Negative); Protein,Urine 1+ (Negative); RBC,Urine 2 /hpf (0-5); Specific Gravity,Urine 1.033 (1.001-1.035); Squamous Epithelial Cell,Urine 12 /hpf (0-4); Urobilinogen,Urine <2.0 mg/dL (<2.0); WBC,Urine 10 /hpf (0-5)
[2022-05-21 13:23] LABS: Basophils % (A) 0 %; Eosinophils % (A) 0 %; HCT 32.2 % (34.0-46.0); Lymphocytes % (A) 9 %; MCH 30.1 pg (25.0-35.0); MCHC 34.3 g/dL (31.0-37.0); MCV 87.7 fL (80.0-100.0); Mean Platelet Volume 8.3; Monocytes # (A) 0.7 k/uL (0-1.0); Monocytes % (A) 6 %; Neutrophils # (A) 9.5 k/uL (1.3-7.7); Neutrophils % (A) 83 %; Platelet Count 304 k/uL (150-450); RBC 3.67 m/uL (3.80-5.40); RDW 12.4 % (11.5-15.5); WBC 11.4 k/uL (3.8-10.6)
[2022-05-21 13:37] LABS: ALT 24 U/L (4-34); AST 29 U/L (14-36); African American GFR (CKD) >90 (>60 ml/min/1.73 sqM); Albumin 4.7 g/dL (3.5-5.0); Alkaline Phosphatase 46 U/L (38-126); Amylase 39 U/L (30-110); Anion Gap 7 mmol/L; Blood Urea Nitrogen 5 mg/dL (7-17); Calcium 9.2 mg/dL (8.4-10.2); Carbon Dioxide 25 mmol/L (22-30); Chloride 106 mmol/L (98-107); Glucose 93 mg/dL (74-99); HCG,Qualitative Serum Not Detected; Lipase 51 U/L (23-300); Non-African American GFR(CKD) >90 (>60 ml/min/1.73 sqM); Potassium 3.7 mmol/L (3.5-5.1); Sodium 138 mmol/L (137-145); Total Bilirubin 0.5 mg/dL (0.2-1.3)
[2022-05-21 13:38] LABS: Prothrombin Time 10.1 sec (9.0-12.0)
[2022-05-21 13:41] LABS: Partial Thromboplastin Time 20.2 sec (22.0-30.0)
--- NOTE | 2022-05-21 14:39 | CT ---
EXAMINATION TYPE: CT abdomen pelvis w con DATE OF EXAM: 05/21/2022 HISTORY: Post op GB pain CT DLP: 519.9mGycm Automated Exposure Control for Dose Reduction was Utilized. CONTRAST: CT scan of the abdomen and pelvis is performed without oral but with IV Contrast, patient injected wi th 100 mL of Isovue 300. COMPARISON: CT abdomen and pelvis January 31, 2022 FINDINGS: LUNG BASES: New mild left basilar linear atelectasis. LIVER/GB: Small amount of free air anterior to the liver. Hyperdense fluid or blood noted along poste rior aspect of the liver extending from the jose hepatis where it is thickened up to 3.5 cm. Blood p roduct extends into the right paracolic and infracolic gutter. PANCREAS: No significant abnormality is seen. SPLEEN: No significant abnormality is seen. ADRENALS: No significant abnormality is seen. KIDNEYS: No significant abnormality is seen. BOWEL: Appendix normal in size in the right lower quadrant. No suspicious small or large bowel dilata tion UTERUS/ADNEXA: Anteverted uterus redemonstrated. Moderate to severe hyperdense fluid or blood in the pelvis axial image 62 for reference. This is superior to the bladder when referencing sagittal image 69 and coronal image 40. LYMPH NODES: No greater than 1cm abdominal or pelvic lymph nodes are appreciated. OSSEOUS STRUCTURES: No significant abnormality is seen. OTHER: Some deep subcutaneous air consistent with recent surgery along the right abdominal wall with small hematomas noted bilaterally. Hounsfield unit of blood product roughly 30-31 in the pelvis and averages closer to 60-61 near the po rta hepatis. Linear irregular hyperdense signal coronal image 36 could reflect site of active extrava sation. IMPRESSION: Moderate to large amount of intraperitoneal blood with source near the jose hepatis, act caroline arterial bleed at this level may be present. Critical results communicated to ordering ER physician via telephone at time of dictation.
[2022-05-21] MEDS ORDERED: ONDANSETRON 4 MG/2 ML VIAL IVP PRN (15:02)
[2022-05-21] MEDS ORDERED: NALOXONE 0.4 MG/ML 1 ML VIAL IV PRN ×2 (15:02→18:51)
--- NOTE | 2022-05-21 15:48 | P.GSHP ---
History of Present Illness H&P Date: 05/21/22 REASON FOR ADMISSION: Abdominal pain HISTORY OF PRESENT ILLNESS: The patient is a 21 year old female status post cholecystectomy yesterday. Per discussion with recovery room nurse, patient had done well to discharge. Per patient's mother, patient had returned home with ro appearance and had fainted. Patient had increased abdominal pain last night. She had awoken this morning with moderate to severe nausea including worsening left upper quadrant pain. She reports developing new left upper quadrant swelling from this morning. She came in with weakness. Patient was taking ibuprofen and Tylenol for pain. Perioperatively, patient did receive heparin for DVT prophylaxis, Mobic and Toradol. Reports not eating in 2 days. She presented to the emergency room as her symptoms of nausea vomiting including increased abdominal pain and dizziness increased. Additional studies including CT of the abdomen and pelvis demonstrated blood within the abdomen. Hemoglobin dropped from 12.9-11.1. Due to her anemia, intra-abdominal bleed and abdominal pain, patient is admitted. PAST MEDICAL HISTORY: See list and reviewed PAST SURGICAL HISTORY: See list and reviewed MEDICATIONS: See list and reviewed ALLERGIES: See list and reviewed SOCIAL HISTORY: See list and reviewed FAMILY HISTORY: See list and reviewed REVIEW OF ORGAN SYSTEMS: CONSTITUTIONAL: No fevers or chills. No recent weight loss. EYES: Denies any trouble with vision. No glasses. HEENT: No difficulties with hearing. No nosebleeds. No difficulty swallowing. RESPIRATORY: Denies pneumonia. Has asthma. CARDIOVASCULAR: Denies any chest pain, palpitations, or recent heart attacks. GASTROINTESTINAL: Has gastroesophageal reflux disease. Has irritable bowel syndrome. GENITOURINARY: Denies any blood in urine or increased urinary frequency. NEUROLOGICAL: Denies any numbness or tingling along the distal extremities. No seizure disorders or headaches. MUSCULOSKELETAL: Has back pain, stiffness or joint arthritis. Has scoliosis SKIN: No current skin cancer. No rash. PSYCHIATRIC: Denies current depression or suicidal thoughts. Has anxiety. ENDOCRINE: Denies current thyroid disorders. Denies any blood sugar glucose intolerance. HEME/LYMPHATIC: Denies any lumps and bumps around the neck. No recent deep venous thrombosis. ALLERGY/IMMUNOLOGY: No immunoglobulin therapy. No immune deficiencies. BREAST: Denies current breast lumps, pain or nipple discharge. PHYSICAL EXAM: VITALS: Reviewed CONSTITUTIONAL: Well developed and in mild distress. EYES: Conjuctivae without sclera icterus. Extraocular movements grossly intact. HEAD, EARS, NOSE, THROAT: Moist buccal mucosa. Head is atraumatic, norm ocephalic. Hears conversational speech. No nasal drainage. NECK: Supple. No JV distention. No thyroidomegaly. RESPIRATORY: Non-labored respirations and equal bilateral excursions. No gross wheezes. CARDIOVASCULAR: Palpable 2+ radial pulses. ABDOMEN: Soft. Mild fullness left upper quadrant without ecchymosis. Tender left upper quadrant. No diffuse peritonitis. LYMPH: No neck lymphadenopathy. MUSCULOSKELETAL: No clubbing cyanosis. SKIN: Warm and well perfused with good skin turgor. NEUROLOGIC: Cranial nerves II through XII grossly intact. No focal or lateralizing signs. PSYCH: Appropriate affect. Alert and oriented to person, place and time. Displays appropriate insight. CLINCAL LABS: Reviewed. LFTs normal. WBC elevated due to postsurgical response. Hemoglobin down 12.9-11.1. Lactic acid elevated. EKG: Abnormal. Possible right ventricle conduction delay. Has sinus arrhythmia. IMAGING: Independently reviewed abdomen and pelvis demonstrates line of the pelvis, right upper quadrant. This is my independent interpretation. RADIOLOGY: Report reviewed. CT abdomen and pelvis reviewed RECORDS: previous old records reviewed with minimal bleeding. ASSESSMENT: 1. Abdominal pain with intra-abdominal bleeding, hemoperitoneum 2. Nausea vomiting PLAN: 1. IV fluid hydration. 2. She reports new symptoms of nausea and vomiting with abdominal pain this morning aggravating her abdominal pain left upper quadrant with some swelling. No ecchymosis along the abdomen. CT reviewed. Bleeding is either from epigastric vessel or jose hepatis. Abdominal binder order to tamponade bleeding 3. Reglan and Zofran IV fluids for nausea. 4. Possible diagnostic laparoscopy pending clinical course. 5. Repeat CBC 6 to 8 hours per discussion with ER provider. Past Medical History Past Medical History: Asthma Additional Past Medical History / Comment(s): scoliosis, hiatal hernia, IBS, states nausea , vomiting and bloating due to gall bladder problems. History of Any Multi-Drug Resistant Organisms: None Reported Past Surgical History: No Surgical Hx Reported, Cholecystectomy Additional Past Surgical History / Comment(s): wisdom teeth, colonoscopy, EGD Past Anesthesia/Blood Transfusion Reactions: No Reported Reaction Past Psychological History: Anxiety Smoking Status: Former smoker, Vaper Past Alcohol Use History: None Reported Past Drug Use History: None Reported Medications and Allergies Home Medications Medication Instructions Recorded Confirmed Type SUMAtriptan succinate [Imitrex] 50 mg PO ONCE PRN 01/05/22 05/21/22 History Acetaminophen Tab [Tylenol Tab] 1,000 mg PO Q6HR PRN #30 tablet 05/20/22 05/21/22 Rx Ibuprofen [Motrin] 600 mg PO Q8HR PRN #30 tab 05/20/22 05/21/22 Rx Simethicone [Gas-X] 125 mg PO AC-TID PRN #20 capsule 05/20/22 05/21/22 Rx Past Medical History Past Medical History: Asthma Additional Past Medical History / Comment(s): scoliosis, hiatal hernia, IBS, states nausea , vomiting and bloating due to gall bladder problems. History of Any Multi-Drug Resistant Organisms: None Reported Past Surgical History: No Surgical Hx Reported, Cholecystectomy Additional Past Surgical History / Comment(s): wisdom teeth, colonoscopy, EGD Past Anesthesia/Blood Transfusion Reactions: No Reported Reaction Past Psychological History: Anxiety Smoking Status: Former smoker, Vaper Past Alcohol Use History: None Reported Past Drug Use History: None Reported - Past Family History Father History Unknown: Yes Mother Additional Family Medical History / Comment(s): choleysystectomy Brother(s) Family Medical History: Myocardial Infarction ([place]) Medications and Allergies Home Medications Medication Instructions Recorded Confirmed Type SUMAtriptan succinate [Imitrex] 50 mg PO ONCE PRN 01/05/22 05/21/22 History Acetaminophen Tab [Tylenol Tab] 1,000 mg PO Q6HR PRN #30 tablet 05/20/22 05/21/22 Rx Ibuprofen [Motrin] 600 mg PO Q8HR PRN #30 tab 05/20/22 05/21/22 Rx Simethicone [Gas-X] 125 mg PO AC-TID PRN #20 capsule 05/20/22 05/21/22 Rx Allergies Allergy/AdvReac Type Severity Reaction Status Date / Time apricot Allergy Unknown Rash/Hives Verified 05/21/22 13:44 blueberry Allergy Unknown Rash/Hives Verified 05/21/22 13:44 kiwi Allergy Unknown Rash/Hives Verified 05/21/22 13:44 codeine Allergy Itching, Verified 05/21/22 13:44 Nausea diphenhydramine Allergy Anaphylaxis Verified 05/21/22 13:44 [From Benadryl] Milk Containing Products Allergy Nausea & Verified 05/21/22 13:44 [Dairy] Vomiting & Diarrhea gluten AdvReac Nausea & Verified 05/21/22 13:44 Vomiting & Diarrhea RYE BREAD Allergy Unknown Uncoded 05/21/22 09:44 Surgical - Exam Vital Signs Temp Pulse Resp BP Pulse Ox 98.7 F 96 22 91/53 97 05/21/22 09:40 05/21/22 09:40 05/21/22 09:40 05/21/22 09:40 05/21/22 09:40 Results - Labs 05/21/22 13:07 05/21/22 13:07 Abnormal Lab Results - Last 24 Hours (Table) 05/21/22 05/21/22 05/21/22 Range/Units 12:50 13:07 13:07 WBC 11.4 H (3.8-10.6) k/uL RBC 3.67 L (3.80-5.40) m/uL Hgb 11.0 L (11.4-16.0) gm/dL Hct 32.2 L (34.0-46.0) % Neutrophils # 9.5 H (1.3-7.7) k/uL APTT 20.2 L (22.0-30.0) sec BUN (7-17) mg/dL Plasma Lactic Acid Wilbert (0.7-2.0) mmol/L Urine Appearance Cloudy H (Clear) Urine Protein 1+ H (Negative) Urine Glucose (UA) Trace H (Negative) Urine Ketones Trace H (Negative) Urine WBC 10 H (0-5) /hpf Ur Squamous Epith Cells 12 H (0-4) /hpf Urine Bacteria Rare H (None) /hpf Hyaline Casts 31 H (0-2) /lpf Urine Mucus Many H (None) /hpf 05/21/22 05/21/22 Range/Units 13:07 13:07 WBC (3.8-10.6) k/uL RBC (3.80-5.40) m/uL Hgb (11.4-16.0) gm/dL Hct (34.0-46.0) % Neutrophils # (1.3-7.7) k/uL APTT (22.0-30.0) sec BUN 5 L (7-17) mg/dL Plasma Lactic Acid Wilbert 2.1 H* (0.7-2.0) mmol/L Urine Appearance (Clear) Urine Protein (Negative) Urine Glucose (UA) (Negative) Urine Ketones (Negative) Urine WBC (0-5) /hpf Ur Squamous Epith Cells (0-4) /hpf Urine Bacteria (None) /hpf Hyaline Casts (0-2) /lpf Urine Mucus (None) /hpf Diabetes panel 05/21/22 Range/Units 13:07 Sodium 138 (137-145) mmol/L Potassium 3.7 (3.5-5.1) mmol/L Chloride 106 (98-107) mmol/L Carbon Dioxide 25 (22-30) mmol/L BUN 5 L (7-17) mg/dL Creatinine 0.53 (0.52-1.04) mg/dL Glucose 93 (74-99) mg/dL Calcium 9.2 (8.4-10.2) mg/dL AST 29 (14-36) U/L ALT 24 (4-34) U/L Alkaline Phosphatase 46 (38-126) U/L Total Protein 7.0 (6.3-8.2) g/dL Albumin 4.7 (3.5-5.0) g/dL Calcium panel 05/21/22 Range/Units 13:07 Calcium 9.2 (8.4-10.2) mg/dL Albumin 4.7 (3.5-5.0) g/dL Pituitary panel 05/21/22 Range/Units 13:07 Sodium 138 (137-145) mmol/L Potassium 3.7 (3.5-5.1) mmol/L Chloride 106 (98-107) mmol/L Carbon Dioxide 25 (22-30) mmol/L BUN 5 L (7-17) mg/dL Creatinine 0.53 (0.52-1.04) mg/dL Glucose 93 (74-99) mg/dL Calcium 9.2 (8.4-10.2) mg/dL Adrenal panel 05/21/22 Range/Units 13:07 Sodium 138 (137-145) mmol/L Potassium 3.7 (3.5-5.1) mmol/L Chloride 106 (98-107) mmol/L Carbon Dioxide 25 (22-30) mmol/L BUN 5 L (7-17) mg/dL Creatinine 0.53 (0.52-1.04) mg/dL Glucose 93 (74-99) mg/dL Calcium 9.2 (8.4-10.2) mg/dL Total Bilirubin 0.5 (0.2-1.3) mg/dL AST 29 (14-36) U/L ALT 24 (4-34) U/L Alkaline Phosphatase 46 (38-126) U/L Total Protein 7.0 (6.3-8.2) g/dL Albumin 4.7 (3.5-5.0) g/dL
[2022-05-21] MEDS ORDERED: SODIUM CHLORIDE 0.9% 1,000 ML IV ONE (15:54)
[2022-05-21] MEDS ORDERED: SCOPOLAMINE 1 MG/72 HR PATCH TRANSDERM STA (15:54)
[2022-05-21] MEDS ORDERED: METOCLOPRAMIDE 5 MG/ML 2 ML VIAL IVP PRN (15:57)
[2022-05-21] MEDS: MORPHINE SULFATE 2 MG/ML SYRINGE IV PRN (16:07)
[2022-05-21] MEDS: SODIUM CHLORIDE 0.9% 1,000 ML IV SCH (17:49)
[2022-05-21] MEDS ORDERED: METOCLOPRAMIDE 5 MG/ML 2 ML VIAL IVP SCH (18:00)
--- NOTE | 2022-05-21 20:52 | P.PN ---
Progress Note - Text Progress Note Date: 05/21/22 Family bedside. Patient reports decreased abdominal pain. Pain primarily at left upper quadrant with mild swelling. No ecchymosis. Patient's family anxious due to miscommunication from patient's presentation to the emergency room to the floor. Patient was given an abdominal binder to tamponade bleed. Additionally, IV fluid bolus given. Antiemetics given. Patient clinically reports feeling better and now has an appetite. Nausea is resolved. Risks for surgery including morbidity described above for open laparotomy. Discussions including locations of bleed from inferior epigastric vessel at left upper quadrant and cystic arterial bleed from a clip. She denies moderate right upper quadrant pain. Bleeding also exacerbated due to patient's retching and increased intra-abdominal pressure. Patient reports hunger. Regular diet given. Abdomen soft. Repeat CBC pending. Patient hemodynamically stable with heart rate. CABLE WORKER HELPER pump described including avoiding Motrin, Toradol, NSAIDs and chemical DVT prophylaxis such as heparin. Will need SCDs instead. Bed rest with up ad jay. to the bathroom discussed with nurse. We'll monitor vital signs including clinical signs of persistent bleed. All questions addressed with patient including family members. Close communication with family members discussed with contact information obtained from stepmother. Both mother, father, brother and additional family members at bedside. Overall, patient's family and patient felt more relieved with care plan discussed of conservative management with monitoring for further signs of bleeding.
[2022-05-21] MEDS ORDERED: SIMETHICONE 80 MG CHEWABLE PO PRN (20:53)
[2022-05-21] MEDS: ACETAMINOPHEN IV (For NPO) 1,000 MG in EMPTY BAG 1 BAG IVPB SCH (21:29)
[2022-05-21] MEDS: SIMETHICONE 40 MG/0.6 ML DROPS 2,000 MG/30 ML BOTTLE PO SCH (21:32)
[2022-05-21] MEDS: fentaNYL PCA 500 MCG/50 ML BAG IV PRN (21:37)
[2022-05-22 00:04] LABS: Basophils % (A) 0 %; Eosinophils % (A) 1 %; HCT 24.3 % (34.0-46.0); Lymphocytes # (A) 1.5 k/uL (1.0-4.8); Lymphocytes % (A) 24 %; MCH 29.7 pg (25.0-35.0); MCHC 33.1 g/dL (31.0-37.0); MCV 89.5 fL (80.0-100.0); Mean Platelet Volume 8.1; Monocytes # (A) 0.3 k/uL (0-1.0); Monocytes % (A) 5 %; Neutrophils # (A) 4.1 k/uL (1.3-7.7); Neutrophils % (A) 68 %; Platelet Count 242 k/uL (150-450); RBC 2.71 m/uL (3.80-5.40); RDW 12.6 % (11.5-15.5)
[2022-05-22] MEDS: SODIUM CHLORIDE 0.9% 1,000 ML IV SCH ×3 (04:07→20:27)
[2022-05-22] MEDS: ACETAMINOPHEN IV (For NPO) 1,000 MG in EMPTY BAG 1 BAG IVPB SCH ×3 (04:08→16:42)
[2022-05-22 09:00] LABS: Basophils % (A) 0 %; Eosinophils # (A) 0.1 k/uL (0-0.7); Eosinophils % (A) 2 %; HCT 23.6 % (34.0-46.0); Lymphocytes # (A) 1.5 k/uL (1.0-4.8); Lymphocytes % (A) 29 %; MCH 30.5 pg (25.0-35.0); MCV 89.7 fL (80.0-100.0); Mean Platelet Volume 8.1; Monocytes # (A) 0.3 k/uL (0-1.0); Monocytes % (A) 7 %; Neutrophils # (A) 3.1 k/uL (1.3-7.7); Neutrophils % (A) 61 %; Platelet Count 201 k/uL (150-450); RBC 2.63 m/uL (3.80-5.40); RDW 12.4 % (11.5-15.5)
[2022-05-22 09:05] LABS: African American GFR (CKD) >90 (>60 ml/min/1.73 sqM); Anion Gap 4 mmol/L; Blood Urea Nitrogen 6 mg/dL (7-17); Calcium 7.8 mg/dL (8.4-10.2); Carbon Dioxide 22 mmol/L (22-30); Chloride 111 mmol/L (98-107); Glucose 81 mg/dL (74-99); Non-African American GFR(CKD) >90 (>60 ml/min/1.73 sqM); Potassium 3.9 mmol/L (3.5-5.1); Sodium 137 mmol/L (137-145)
[2022-05-22] MEDS: PANTOPRAZOLE 40 MG/10 ML VIAL IVP SCH (10:09)
[2022-05-22] MEDS: SIMETHICONE 40 MG/0.6 ML DROPS 2,000 MG/30 ML BOTTLE PO SCH ×4 (10:21→20:29)
--- NOTE | 2022-05-22 12:40 | P.PN ---
Subjective Progress Note Date: 05/22/22 Clinically doing better. Blood pressure improved from 87 systolic to 138 systolic. She reports mild nausea. No moderate or severe nausea or from admission. Hemoglobin stable from a stable from 8.0 last night and this morning. No peritonitis. Continue OCCUPATIONAL THERAPY ASST. Bed rest today. Continue abdominal binder. Reevaluate for ambulation tomorrow with possible discharge in 48 hours, Tuesday. Laboratory work hemoglobin and activities instructions reviewed the patient's family. Anticipated time to work June 22 in 4 weeks. Repeat hemoglobin tomorrow Objective - Vital Signs Vital signs: Vital Signs Temp 98.2 F 05/22/22 08:00 Pulse 76 05/22/22 08:00 Resp 16 05/22/22 08:00 BP 138/52 05/22/22 08:00 Pulse Ox 96 05/22/22 08:46 FiO2 21 05/22/22 08:46 Intake & Output 05/21/22 05/22/22 05/22/22 18:59 06:59 18:59 Weight 50.802 kg Other: # Voids 0 1 - Labs CBC & Chem 7: 05/22/22 08:11 05/22/22 08:11 Labs: Abnormal Lab Results - Last 24 Hours (Table) 05/21/22 05/21/22 05/21/22 Range/Units 12:50 13:07 13:07 WBC 11.4 H (3.8-10.6) k/uL RBC 3.67 L (3.80-5.40) m/uL Hgb 11.0 L (11.4-16.0) gm/dL Hct 32.2 L (34.0-46.0) % Neutrophils # 9.5 H (1.3-7.7) k/uL APTT 20.2 L (22.0-30.0) sec Chloride (98-107) mmol/L BUN (7-17) mg/dL Creatinine (0.52-1.04) mg/dL Plasma Lactic Acid Wilbert (0.7-2.0) mmol/L Calcium (8.4-10.2) mg/dL Urine Appearance Cloudy H (Clear) Urine Protein 1+ H (Negative) Urine Glucose (UA) Trace H (Negative) Urine Ketones Trace H (Negative) Urine WBC 10 H (0-5) /hpf Ur Squamous Epith Cells 12 H (0-4) /hpf Urine Bacteria Rare H (None) /hpf Hyaline Casts 31 H (0-2) /lpf Urine Mucus Many H (None) /hpf 05/21/22 05/21/22 05/21/22 Range/Units 13:07 13:07 22:47 WBC (3.8-10.6) k/uL RBC 2.71 L (3.80-5.40) m/uL Hgb 8.0 L D (11.4-16.0) gm/dL Hct 24.3 L (34.0-46.0) % Neutrophils # (1.3-7.7) k/uL APTT (22.0-30.0) sec Chloride (98-107) mmol/L BUN 5 L (7-17) mg/dL Creatinine (0.52-1.04) mg/dL Plasma Lactic Acid Wilbert 2.1 H* (0.7-2.0) mmol/L Calcium (8.4-10.2) mg/dL Urine Appearance (Clear) Urine Protein (Negative) Urine Glucose (UA) (Negative) Urine Ketones (Negative) Urine WBC (0-5) /hpf Ur Squamous Epith Cells (0-4) /hpf Urine Bacteria (None) /hpf Hyaline Casts (0-2) /lpf Urine Mucus (None) /hpf 05/22/22 05/22/22 Range/Units 08:11 08:11 WBC (3.8-10.6) k/uL RBC 2.63 L (3.80-5.40) m/uL Hgb 8.0 L (11.4-16.0) gm/dL Hct 23.6 L (34.0-46.0) % Neutrophils # (1.3-7.7) k/uL APTT (22.0-30.0) sec Chloride 111 H (98-107) mmol/L BUN 6 L (7-17) mg/dL Creatinine 0.48 L (0.52-1.04) mg/dL Plasma Lactic Acid Wilbert (0.7-2.0) mmol/L Calcium 7.8 L (8.4-10.2) mg/dL Urine Appearance (Clear) Urine Protein (Negative) Urine Glucose (UA) (Negative) Urine Ketones (Negative) Urine WBC (0-5) /hpf Ur Squamous Epith Cells (0-4) /hpf Urine Bacteria (None) /hpf Hyaline Casts (0-2) /lpf Urine Mucus (None) /hpf
[2022-05-23] MEDS: fentaNYL PCA 500 MCG/50 ML BAG IV PRN (00:31)
[2022-05-23] MEDS: SODIUM CHLORIDE 0.9% 1,000 ML IV SCH (08:36)
[2022-05-23] MEDS: PANTOPRAZOLE 40 MG/10 ML VIAL IVP SCH (08:43)
[2022-05-23] MEDS: SIMETHICONE 40 MG/0.6 ML DROPS 2,000 MG/30 ML BOTTLE PO SCH ×3 (08:43→18:02)
[2022-05-23 10:38] LABS: HCT 24.6 % (34.0-46.0); HGB 8.1 gm/dL (11.4-16.0); MCH 29.9 pg (25.0-35.0); MCV 90.5 fL (80.0-100.0); Platelet Count 204 k/uL (150-450); RBC 2.72 m/uL (3.80-5.40); RDW 12.8 % (11.5-15.5); WBC 5.2 k/uL (3.8-10.6)
--- NOTE | 2022-05-23 13:32 | P.PN ---
Subjective Progress Note Date: 05/23/22 Hemoglobin continues to improve from 8.0-8.1. Patient reports left upper quadrant discomfort from electrical lead. No further signs of bleeding. Patient may shower today. Abdominal binder to be replaced after showering. Discontinue IV fluids and she is tolerating oral intake. Management for oral pain meds reviewed. Repeat hemoglobin tomorrow prior to potential discharge in 24 hours. No return to work for 4 weeks until 06/22/2022. Objective - Vital Signs Vital signs: Vital Signs Temp 98.1 F 05/23/22 08:00 Pulse 69 05/23/22 08:00 Resp 18 05/23/22 08:00 BP 94/60 05/23/22 08:00 Pulse Ox 97 05/23/22 08:00 FiO2 21 05/22/22 08:46 Intake & Output 05/22/22 05/23/22 05/23/22 18:59 06:59 18:59 Other: # Voids 1 1 - Labs CBC & Chem 7: 05/23/22 09:34 05/22/22 08:11 Labs: Abnormal Lab Results - Last 24 Hours (Table) 05/23/22 Range/Units 09:34 RBC 2.72 L (3.80-5.40) m/uL Hgb 8.1 L (11.4-16.0) gm/dL Hct 24.6 L (34.0-46.0) %
[2022-05-23] MEDS ORDERED: SCOPOLAMINE 1 MG/72 HR PATCH TRANSDERM SCH (15:00)
[2022-05-23] MEDS: ACETAMINOPHEN TAB 325 MG TAB PO SCH ×3 (15:40→23:59)
[2022-05-23] MEDS: CYCLOBENZAPRINE 5 MG TAB PO SCH (16:42)
[2022-05-23] MEDS: ONDANSETRON 4 MG/2 ML VIAL IVP PRN ×2 (16:46→23:58)
[2022-05-24] MEDS: ACETAMINOPHEN TAB 325 MG TAB PO SCH ×6 (04:13→23:55)
[2022-05-24 05:47] LABS: Basophils % (A) 0 %; Eosinophils # (A) 0.1 k/uL (0-0.7); Eosinophils % (A) 3 %; HCT 26.1 % (34.0-46.0); HGB 8.5 gm/dL (11.4-16.0); Lymphocytes # (A) 1.5 k/uL (1.0-4.8); Lymphocytes % (A) 32 %; MCH 29.3 pg (25.0-35.0); MCHC 32.7 g/dL (31.0-37.0); MCV 89.8 fL (80.0-100.0); Mean Platelet Volume 7.9; Monocytes # (A) 0.3 k/uL (0-1.0); Monocytes % (A) 7 %; Neutrophils # (A) 2.6 k/uL (1.3-7.7); Neutrophils % (A) 56 %; Platelet Count 204 k/uL (150-450); RBC 2.91 m/uL (3.80-5.40); RDW 12.8 % (11.5-15.5); WBC 4.6 k/uL (3.8-10.6)
[2022-05-24] MEDS: PANTOPRAZOLE 40 MG/10 ML VIAL IVP SCH (08:11)
[2022-05-24] MEDS: CYCLOBENZAPRINE 5 MG TAB PO SCH ×3 (08:11→15:09)
[2022-05-24] MEDS: ONDANSETRON 4 MG/2 ML VIAL IVP PRN ×2 (08:35→23:55)
[2022-05-24] MEDS: fentaNYL PCA 500 MCG/50 ML BAG IV PRN (08:57)
[2022-05-24] MEDS: SIMETHICONE 40 MG/0.6 ML DROPS 2,000 MG/30 ML BOTTLE PO SCH ×4 (11:29→17:24)
[2022-05-24] MEDS: SODIUM FERRIC GLUCONAT-SUCROSE 125 MG in SODIUM CHLORIDE 0.9% 100 ML IVPB SCH (11:30)
--- NOTE | 2022-05-24 15:15 | P.PN ---
Subjective Progress Note Date: 05/24/22 CHIEF COMPLAINT: Abdominal pain HISTORY OF PRESENT ILLNESS: Patient had laparoscopic cholecystectomy 05/20/2022. Patient had presented back to the ER with increased abdominal pain and passing out. Computed tomography scan showed moderate to large amount of intraperitoneal blood with source near the jose hepatis. Patient hemoglobin did drop from 11-8. Her hemoglobin is trending upwards to 8.5 today. She does have nausea after antibiotics. She denies any vomiting. She reports decrease in her abdominal pain. She was still requiring the GRINDER SET UP OPERATOR pump earlier today. Afebrile. WBC 4.6 hemoglobin 8.5 platelets 204 PHYSICAL EXAM: VITAL SIGNS: Reviewed GENERAL: Well-developed in no acute distress. HEENT: No sclera icterus. Extraocular movements grossly intact. Moist buccal mucosa. Head is atraumatic, normocephalic. Hears conversational speech. No nasal drainage. NECK: Supple without lymphadenopathy. CHEST: Non-labored respirations and equal bilateral excursions. CARDIOVASCULAR: Palpable 2+ radial pulses. ABDOMEN: Soft. Mildly distended lower abdomen. Diffuse tenderness. MUSCULOSKELETAL: No clubbing or cyanosis. NEUROLOGIC: No focal or lateralizing signs. Cranial nerves II through XII grossly intact. PSYCH: Appropriate affect. Alert and oriented to person, place and time. SKIN: Well perfused. Good skin turgor. ASSESSMENT: 1. Abdominal pain with intra-abdominal bleeding, hemoperitoneum 2. Nausea vomiting 3. Laparoscopic cholecystectomy 05/20/2022 PLAN: -Continue to monitor hemoglobin -Continue abdominal binder for support -Discontinue GRINDER SET UP OPERATOR pump -Transition patient over to oral pain medication -Continue antiemetics -Encouraged patient to increase activity level -Continue IV iron -Continue regular diet -Anticipate discharge home tomorrow Physician Residential Sales Manager note has been reviewed by physician. Signing provider agrees with the documented findings, assessment, and plan of care. Objective - Vital Signs Vital signs: Vital Signs Temp 98.2 F 05/24/22 11:34 Pulse 66 05/24/22 11:34 Resp 20 05/24/22 11:34 BP 99/64 05/24/22 11:34 Pulse Ox 96 05/24/22 11:34 FiO2 21 05/22/22 08:46 Intake & Output 05/23/22 05/24/22 05/24/22 18:59 06:59 18:59 Intake Total 360 Balance 360 Weight 50.9 kg Intake: Oral 360 Other: # Voids 2 - Labs CBC & Chem 7: 05/24/22 04:58 05/22/22 08:11 Labs: Abnormal Lab Results - Last 24 Hours (Table) 05/24/22 Range/Units 04:58 RBC 2.91 L (3.80-5.40) m/uL Hgb 8.5 L (11.4-16.0) gm/dL Hct 26.1 L (34.0-46.0) %
[2022-05-24] MEDS ORDERED: CYCLOBENZAPRINE 5 MG TAB PO PRN (17:18)
[2022-05-24 19:25] VITALS: RESP 16
[2022-05-24] MEDS: MORPHINE SULFATE 2 MG/ML SYRINGE IV PRN (19:48)
[2022-05-25] MEDS: MORPHINE SULFATE 2 MG/ML SYRINGE IV PRN (03:12)
[2022-05-25] MEDS: ACETAMINOPHEN TAB 325 MG TAB PO SCH ×3 (03:53→12:54)
[2022-05-25] MEDS: PANTOPRAZOLE 40 MG/10 ML VIAL IVP SCH (08:25)
[2022-05-25] MEDS: ONDANSETRON 4 MG/2 ML VIAL IVP PRN (08:25)
[2022-05-25] MEDS: SIMETHICONE 40 MG/0.6 ML DROPS 2,000 MG/30 ML BOTTLE PO SCH ×3 (08:35→12:55)
[2022-05-25 09:17] LABS: HCT 27.8 % (37.2-46.3); HGB 9.3 g/dL (12.0-15.0); MCH 30.5 pg (27.0-32.0); MCHC 33.5 g/dL (32.0-37.0); MCV 91.1 fL (80.0-97.0); Mean Platelet Volume 10.1 fL (9.5-12.2); NRBC Per 100 WBC 0 /100 WBCS (0.0-0.0); Platelet Count 245 X 10*3/uL (140-440); RBC 3.05 X 10*6/uL (4.10-5.20); RDW 12.2 % (11.5-14.5); WBC 5.51 X 10*3/uL (4.50-10.00)
[2022-05-25] MEDS: SODIUM FERRIC GLUCONAT-SUCROSE 125 MG in SODIUM CHLORIDE 0.9% 100 ML IVPB SCH (10:05)
[2022-05-25 11:52] VITALS: BP 98/67; PULSE 91; TEMP 98.1
--- NOTE | 2022-05-25 14:30 | P.DS ---
Providers Date of admission: 05/21/22 15:03 Expected date of discharge: 05/25/22 Attending physician: Loretta Lockwood Primary care physician: Ely Smart [place] Hospital Course: Discharge diagnosis 1. Abdominal pain with intra-abdominal bleeding, hemoperitoneum 2. Nausea vomiting 3. Laparoscopic cholecystectomy 05/20/2022 Hospital course The patient is a 21 year old female status post cholecystectomy on 05/20/22. Patient presented back to the ER the next day due to increased abdominal pain and passing out. Computed tomography scan showed moderate to large amount of intraperitoneal blood with source near the jose hepatis. Patient hemoglobin did drop from 11-8. Patient had been taking ibuprofen at home. Perioperatively patient had been on heparin for DVT prophylaxis, Mobic and Toradol. Medications were likely contributing factor to patient's intra-abdominal bleeding. Patient's hemoglobin has remained stable and trending upwards at 9.3. Her pain is controlled. She is tolerating diet. She's afebrile. She has been up and ambulating. Patient is stable for discharge. Physician Curriculum Coach note has been reviewed by physician. Signing provider agrees with the documented findings, assessment, and plan of care. Patient Condition at Discharge: Stable Plan - Discharge Summary Discharge Rx Participant: No New Discharge Prescriptions: New Acetaminophen Tab [Tylenol Tab] 650 mg PO Q4H PRN #30 tablet PRN Reason: Pain Cyclobenzaprine [Flexeril] 5 mg PO TID PRN #9 tab PRN Reason: Muscle Spasm Continue Simethicone [Gas-X] 125 mg PO AC-TID PRN #20 capsule PRN Reason: Pain SUMAtriptan succinate [Imitrex] 50 mg PO ONCE PRN PRN Reason: Migraine Headache Discontinued Ibuprofen [Motrin] 600 mg PO Q8HR PRN #30 tab PRN Reason: Pain Discharge Medication List SUMAtriptan succinate [Imitrex] 50 mg PO ONCE PRN 01/05/22 [History] Simethicone [Gas-X] 125 mg PO AC-TID PRN #20 capsule 05/20/22 [Rx] Acetaminophen Tab [Tylenol Tab] 650 mg PO Q4H PRN #30 tablet 05/25/22 [Rx] Cyclobenzaprine [Flexeril] 5 mg PO TID PRN #9 tab 05/25/22 [Rx] Follow up Appointment(s)/Referral(s): Loretta Lockwood MD [STAFF PHYSICIAN] - 06/08/22 Ely Smart DO [Primary Care Provider] - 1-2 days Activity/Diet/Wound Care/Special Instructions: Wear abdominal binder at all times for comfort No lifting over 4 pounds in 4 weeks Shower daily No bath tub soaks for two weeks Use Tylenol scheduled for the next 24-48 hours for best pain relief. Use ice along incisions to prevent swelling. Discharge Disposition: HOME SELF-CARE
--- NOTE | 2022-05-29 18:05 | CDI ---
Documentation Clarification Form Date: 05/29/2022 05:50:40 PM From: Christi Arriola Phone: Admit Date: 05/21/2022 03:03:00 PM Patient Name: José Antonio Borrero Visit Number: [id number] Discharge Date: 05/25/2022 03:22:00 PM ATTENTION: The Clinical Documentation Specialists (CDI) and [facility] Coding Staff appreciate your assistance in clarifying documentation. Please respond to the clarification below the line at the bottom and electronically sign. The CDI & [facility] Coding staff will review the response and follow-up if needed. Please note: Queries are made part of the Legal Health Record. If you have any questions, please contact the author of this message via ITS. Dr. Loretta Lockwood Unspecified anemia is documented per H&P. Additional specificity regarding the type and acuity of anemia is requested. History/Risk Factors: 21yo F, Abdominal pain with intra-abdominal bleeding, hemoperitoneum, Nausea vomiting, Laparoscopic cholecystectomy 05/20/2022 Clinical indicators: Hemoglobin: 11.0 05/21 8.0 05/22 8.5 05/24 Hematocrit: 32.2 05/21 24.3/ 32.2 05/22 26.1 05/24 Treatment: FASHION DESIGN PROFESSOR pump. IV fluid hydration. Abdominal binder order to tamponade bleeding. Reglan and Zofran IV fluids for nausea. Possible diagnostic laparoscopy pending clinical course. Repeat CBC 6 to 8 hours per discussion with ER provider. Please clarify the type and acuity of anemia: [ x ] Acute blood loss anemia [ ] Unable to determine [ ] Other, please specify (Template Last Revised: July 2020) [ x ] Acute blood loss anemia 06/05/22 @[id number] MTDD
== END 2022-05-25 15:22 | disposition home or self-care (01) | DRG 811 ==
LOC: EC 09:38 → 3SCARD 15:03 → 5NMEDONC 05-23 18:26
PROVIDERS: ADMIT Surgery Plastic and Reconstructive Surgery; ATTEND Surgery Plastic and Reconstructive Surgery
DX: D62 Acute posthemorrhagic anemia (principal); K66.1 Hemoperitoneum; K91.840 Postprocedural hemorrhage of a digestive system organ or structure following a digestive system procedure; R19.7 Diarrhea, unspecified; T39.315A Adverse effect of propionic acid derivatives, initial encounter; T39.1X5A Adverse effect of 4-Aminophenol derivatives, initial encounter; M41.9 Scoliosis, unspecified; K91.0 Vomiting following gastrointestinal surgery; Y83.8 Other surgical procedures as the cause of abnormal reaction of the patient, or of later complication, without mention of misadventure at the time of the procedure; Z88.5 Allergy status to narcotic agent; Z88.8 Allergy status to other drugs, medicaments and biological substances; Z91.011 Allergy to milk products; Z91.018 Allergy to other foods; Z87.891 Personal history of nicotine dependence; Z90.49 Acquired absence of other specified parts of digestive tract
CPT/HCPCS: 36415; 74177; 80048; 80053; 81001; 82150; 83605; 83690; 84703; 85025; 85027; 85610; 85730; 86850; 86900; 86901; 93005; 94760; 96361; 96374; 96375; 96376; 99285

== ENCOUNTER 2022-12-01 12:39 | Emergency (ER) | payer OTHER ==
[2022-12-01 13:09] VITALS: RESP 18
--- NOTE | 2022-12-01 13:39 | ED ---
General Adult HPI - General Chief complaint: Chest Pain Stated complaint: Trouble Swallowing Time Seen by Provider: 12/01/22 13:21 Source: patient, RN notes reviewed Mode of arrival: ambulatory - History of Present Illness Initial comments: Patient is a 22 year old female who is 30 weeks presenting to the ER with a chief complaint of chest discomfort. Patient is diagnosed with hiatal hernia in May 2022. She is concerned that it is growing due to her . Patient states last night while sleeping in bed her chest discomfort increased. She reports she feels like she has to keep swallowing and something is in her throat. Admits to occasional Tums use with relief. Denies shortness of breath, abdominal pain, vomiting, constipation/diarrhea. - Related Data Home Medications Medication Instructions Recorded Confirmed SUMAtriptan succinate [Imitrex] 50 mg PO ONCE PRN 01/05/22 05/21/22 Previous Rx's Medication Instructions Recorded Simethicone [Gas-X] 125 mg PO AC-TID PRN #20 capsule 05/20/22 Acetaminophen Tab [Tylenol Tab] 650 mg PO Q4H PRN #30 tablet 05/25/22 Cyclobenzaprine [Flexeril] 5 mg PO TID PRN #9 tab 05/25/22 Famotidine [Pepcid] 20 mg PO BID #28 tablet 12/01/22 Allergies Allergy/AdvReac Type Severity Reaction Status Date / Time apricot Allergy Unknown Rash/Hives Verified 12/01/22 13:09 blueberry Allergy Unknown Rash/Hives Verified 12/01/22 13:09 kiwi Allergy Unknown Rash/Hives Verified 12/01/22 13:09 codeine Allergy Itching, Verified 12/01/22 13:09 Nausea diphenhydramine Allergy Anaphylaxis Verified 12/01/22 13:09 [From Benadryl] Milk Containing Products Allergy Nausea & Verified 12/01/22 13:09 [Dairy] Vomiting & Diarrhea gluten AdvReac Nausea & Verified 12/01/22 13:09 Vomiting & Diarrhea RYE BREAD Allergy Unknown Uncoded 12/01/22 13:09 Review of Systems ROS Statement: Those systems with pertinent positive or pertinent negative responses have been documented in the HPI. ROS Other: All systems not noted in ROS Statement are negative. Past Medical History Past Medical History: Asthma Additional Past Medical History / Comment(s): scoliosis, hiatal hernia, IBS, states nausea , vomiting and bloating due to gall bladder problems. History of Any Multi-Drug Resistant Organisms: None Reported Past Surgical History: No Surgical Hx Reported, Cholecystectomy Additional Past Surgical History / Comment(s): wisdom teeth, colonoscopy, EGD Past Anesthesia/Blood Transfusion Reactions: No Reported Reaction Past Psychological History: Anxiety Smoking Status: Former smoker, Vaper Past Alcohol Use History: None Reported Past Drug Use History: None Reported - Past Family History Father History Unknown: Yes Mother Additional Family Medical History / Comment(s): choleysystectomy Brother(s) Family Medical History: Myocardial Infarction ([place]) General Exam Limitations: no limitations General appearance: alert, in no apparent distress ENT exam: Present: normal oropharynx, mucous membranes moist Respiratory exam: Present: normal lung sounds bilaterally. Absent: respiratory distress, wheezes, rales, rhonchi, stridor Cardiovascular Exam: Present: regular rate, normal rhythm, normal heart sounds. Absent: systolic murmur, diastolic murmur, rubs, gallop, clicks GI/Abdominal exam: Present: soft, tenderness, other ( ). Absent: distended, guarding, rebound, rigid Course Vital Signs 12/01/22 13:04 Temperature 98.1 F Pulse Rate 86 Respiratory 18 Rate Blood Pressure 100/70 O2 Sat by Pulse 97 Oximetry Medical Decision Making - Medical Decision Making Was pt. sent in by a medical professional or institution (Dr. PA, LOG RAFTER, urgent care, hospital, or prison...) When possible be specific @ -No Did you speak to anyone other than the patient for history (EMS, parent, family, police, friend...)? What history was obtained from this source @ -No Did you review nursing and triage notes (agree or disagree)? Why? @ -I reviewed and agree with nursing and triage notes Were old charts reviewed (outside hosp., previous admission, EMS record, old EKG, old radiological studies, urgent care reports/EKG's, prison records)? Report findings @ -Reviewed prior laboratory studies Differential Diagnosis (chest pain, altered mental status, abdominal pain women, abdominal pain men, vaginal bleeding, weakness, fever, dyspnea, syncope, headache, dizziness, GI bleed, back pain, seizure, CVA, palpatations, mental health, musculoskeletal)? @ -GERD, hiatal hernia, chest wall pain, EKG interpreted by me (3pts min.). @ -None X-rays interpreted by me (1pt min.). @ -None done CT interpreted by me (1pt min.). @ -None done U/S interpreted by me (1pt. min.). @ -None done What testing was considered but not performed or refused? (CT, X-rays, U/S, labs)? Why? @ -Considered x-ray patient declined giving risk for radiation exposure What meds were considered but not given or refused? Why? @ -None Did you discuss the management of the patient with other professionals (professionals i.e. Dr., PA, LOG RAFTER, lab, RT, psych nurse, psychosocial rehabilitation counselor, certified breastfeeding educator, teacher, information assurance officer, pillowcase cutter)? Give summary @ -No Was smoking cessation discussed for >3mins.? @ -No Was critical care preformed (if so, how long)? @ -No Were there social determinants of health that impacted care today? How? (Homelessness, low income, unemployed, alcoholism, drug addiction, transportation, low edu. Level, literacy, decrease access to med. care, snf, rehab)? @ -No Was there de-escalation of care discussed even if they declined (Discuss DNR or withdrawal of care, Hospice)? DNR status @ -No What co-morbidities impacted this encounter? (DM, HTN, Smoking, COPD, CAD, Cancer, CVA, ARF, Chemo, Hep., AIDS, mental health diagnosis, sleep apnea, morbid obesity)? @ -Hiatal hernia Was patient admitted / discharged? Hospital course, mention meds given and route, prescriptions, significant lab abnormalities, going to OR and other pertinent info. @ -Discharge symptoms are persistent with reflux. Patient was started on Pepcid patient will follow-up with PCP, INDUSTRIAL PRODUCTION MANAGER return parameters were discussed. Undiagnosed new problem with uncertain prognosis? @ -No Drug Therapy requiring intensive monitoring for toxicity (Heparin, Nitro, Insulin, Cardizem)? @ -No Were any procedures done? @ -No Diagnosis/symptom? @ -[GERD Acute, or Chronic, or Acute on Chronic? @ -Acute on chronic Uncomplicated (without systemic symptoms) or Complicated (systemic symptoms)? @ -uncomplicated Side effects of treatment? @ -No Exacerbation, Progression, or Severe Exacerbation? @ -No Poses a threat to life or bodily function? How? (Chest pain, [place], PA, pneumonia, PE, COPD, DKA, ARF, appy, cholecystitis, CVA, Diverticulitis, Homicidal, Suicidal, threat to staff... and all critical care pts) @ -No Disposition Clinical Impression: GERD (gastroesophageal reflux disease) Disposition: HOME SELF-CARE Condition: Stable Instructions (If sedation given, give patient instructions): GERD (Gastroesophageal Reflux Disease) (ED) Additional Instructions: Please return to the Emergency Department if symptoms worsen or any other concerns. Prescriptions: Famotidine [Pepcid] 20 mg PO BID #28 tablet Is patient prescribed a controlled substance at d/c from ED?: No Referrals: Ely Smart DO [Primary Care Provider] - 1-2 days Time of Disposition: 13:49
[2022-12-01 19:11] VITALS: BP 94/75; PULSE 88; TEMP 98.2
== END 2022-12-01 14:08 | disposition home or self-care (01) ==
LOC: EC 12:39
DX: O99.613 Diseases of the digestive system complicating pregnancy, third trimester (principal); K21.9 Gastro-esophageal reflux disease without esophagitis; J45.909 Unspecified asthma, uncomplicated; O99.513 Diseases of the respiratory system complicating pregnancy, third trimester; O99.343 Other mental disorders complicating pregnancy, third trimester; F41.9 Anxiety disorder, unspecified; O99.333 Smoking (tobacco) complicating pregnancy, third trimester; F17.290 Nicotine dependence, other tobacco product, uncomplicated; Z79.899 Other long term (current) drug therapy; Z91.018 Allergy to other foods; Z91.011 Allergy to milk products; Z88.5 Allergy status to narcotic agent; Z88.8 Allergy status to other drugs, medicaments and biological substances; Z3A.30 30 weeks gestation of pregnancy
CPT/HCPCS: 99285

== ENCOUNTER 2023-02-03 06:00 | Inpatient (IN) | payer OTHER ==
[2023-02-03] MEDS ORDERED: DINOPROSTONE 10 MG INSERT.ER VAGINAL ONE (16:30)
[2023-02-03] MEDS ORDERED: NALBUPHINE 10 MG/ML (10 ML MDV) IV PRN (16:47)
[2023-02-03 17:12] LABS: Basophils % (A) 0 %; Eosinophils # (A) 0.1 k/uL (0-0.7); Eosinophils % (A) 1 %; HCT 34.4 % (34.0-46.0); Lymphocytes # (A) 1.8 k/uL (1.0-4.8); Lymphocytes % (A) 24 %; MCH 30.5 pg (25.0-35.0); MCHC 34.9 g/dL (31.0-37.0); MCV 87.5 fL (80.0-100.0); Mean Platelet Volume 8.4; Monocytes # (A) 0.4 k/uL (0-1.0); Monocytes % (A) 6 %; Neutrophils # (A) 5.4 k/uL (1.3-7.7); Neutrophils % (A) 69 %; Platelet Count 227 k/uL (150-450); RBC 3.93 m/uL (3.80-5.40); RDW 13.3 % (11.5-15.5); WBC 7.8 k/uL (3.8-10.6)
[2023-02-03] MEDS ORDERED: LACTATED RINGERS 500 ML IV SCH ×2 (21:20→23:30)
[2023-02-04] MEDS ORDERED: LACTATED RINGERS 500 ML IV SCH ×2 (01:30→06:00)
[2023-02-04] MEDS: LACTATED RINGERS 1,000 ML IV SCH ×6 (04:19→23:46)
[2023-02-04] MEDS ORDERED: CITRIC ACID-SODIUM CITRATE 15 ML CUP PO ONE (08:15)
[2023-02-04] MEDS ORDERED: OXYTOCIN 30 UNITS/500 ML NS 30 UNIT in SALINE 1 500ML.BAG IV SCH (08:15)
[2023-02-04] MEDS ORDERED: miSOPROStoL 200 MCG TAB PO PRN (08:15)
[2023-02-04] MEDS ORDERED: OXYTOCIN 10 UNIT/ML 1 ML VIAL IM PRN (08:15)
[2023-02-04] MEDS ORDERED: METHYLERGONOVINE 0.2 MG/ML 1 ML AMP IM PRN (08:15)
[2023-02-04] MEDS ORDERED: TRANEXAMIC 1,000 MG/100ML-NACL 1,000 MG in EMPTY BAG 1 BAG IV PRN (08:15)
[2023-02-04] MEDS ORDERED: CARBOPROST TROMETHAMINE 250 MCG/ML 1 ML AMP IM PRN (08:15)
[2023-02-04] MEDS ORDERED: PHENYLEPHRINE-0.9% NACL SYG 1,000 MCG/10 ML SYRINGE ONE (08:57)
[2023-02-04] MEDS ORDERED: ONDANSETRON 4 MG/2 ML VIAL ONE (08:57)
[2023-02-04] MEDS ORDERED: ePHEDrine 50 MG/ML 1 ML VIAL ONE (08:57)
[2023-02-04] MEDS ORDERED: GLYCOPYRROLATE 0.2 MG/ML 2 ML VIAL ONE (08:57)
[2023-02-04] MEDS ORDERED: OXYTOCIN 30 UNITS/500 ML NS BAG IV ONE (08:57)
[2023-02-04] MEDS ORDERED: MORPHINE SULFATE (PF) 0.3 MG/0.3 ML SYR ONE (08:57)
[2023-02-04] MEDS ORDERED: fentaNYL (PF) 50 MCG/ML 2 ML AMP ONE (08:57)
--- NOTE | 2023-02-04 09:49 | P.OP ---
Date of Procedure: 02/04/23 Preoperative Diagnosis: IUP at 39 and 5, failed induction, maternal refusal to labor Postoperative Diagnosis: Same Procedure(s) Performed: Primary low transverse section Surgeon: Lianna Gamble Toy Mechanic #1: Mikayla Dillard Estimated Blood Loss (ml): 680 IV fluids (ml): 800 Urine output (ml): 1,100 Pathology: none sent Condition: stable Disposition: observation Indications for Procedure: 22-year-old 1 para 0 at 39-5/7 weeks that presented last evening for Cervidil induction of labor secondary to maternal discomfort and family concerns. Patient was admitted and Cervidil was placed. Approximately 2100 p atient was noted to be tachysystole therefore after fluid bolus and position changes were attempted it was removed. Contractions improved, heart tones were category 1 throughout. Patient did request Nubain through the night. This morning no cervical change was appreciated. Patient is requesting primary C- section as "I can't do this any longer". Discussion regarding primary C- section, questions are answered. Patient's mother is in the room and agrees with her daughter's request for primary . Operative Findings: Viable male infant delivered at 918, weight of 6 lbs. 15 oz., Apgars of 9 and 9 at one and 5 minutes respectively. Normal uterus ovaries and tubes were appreciated. Description of Procedure: The patient was prepped and draped in the usual fashion after spinal anesthesia was administered by anesthesia Department. A Pfannenstiel incision was made and extended of the abdominal cavity without difficulty. The bladder peritoneum was elevated and incised and reflected distally. A 2 cm incision was made in the transverse plane of the lower uterine segment to enter the uterus at which time clear fluid was noted. The incision was extended in both directions bluntly. The head was encountered within the field and delivered up and through the incision where the nose and mouth were thoroughly suctioned. Remainder of the infant was delivered onto the surgical field where the cord was doubly clamped, cut, and the was passed for resuscitative measures with weight and Apgars as noted above. The placenta was delivered manually, intact, and was grossly normal with a grossly normal three-vessel cord. The uterus was exteriorized and the interior cavity of the uterus swept of any remaining placental and membranous fragments with a laparotomy sponge. The margins of the incision were grasped with Allis clamps and the incision closed in 2 layers. First layer was a running locking layer of 0 Vicryl from margin to margin followed by a second layer of imbricating 0 Vicryl from margin to margin. Any small points of bleeding were then made hemostatic with the Bovie. Once hemostasis was achieved, the posterior cul-de-sac was suctioned with a guard and the uterine and ovarian findings are as noted above. The uterus was replaced within the abdominal cavity and the gutters swept of any remaining blood fluid or clot. The incision was again reexamined and hemostasis was noted to be excellent. Any small point of bleeding were made hemostatic with the Bovie. Once hemostasis was achieved the parietal peritoneum was loosely reapproximated. The layer of muscles were examined and made hemostatic with the Bovie. Attention was then turned to the fascia which was closed with 2 running stitches of 0 Vicryl proceeding from one lateral edge to the other. The subcutaneous tissues were irrigated, made hemostatic with the Bovie, and reapproximated with a running stitch of 30 vicryl. The skin was reapproximated with 4-0 vicryl. Estimated blood loss for the case was approximately 680 mL. All sponge instrument and needle counts are correct. There were no complications. The patient tolerated the procedure well and proceeded to the recovery room in stable condition. Both mother and are resting comfortably in recovery.
[2023-02-04] MEDS ORDERED: SIMETHICONE 80 MG CHEWABLE PO PRN (09:52)
[2023-02-04] MEDS ORDERED: diphenhydrAMINE 50 MG/ML 1 ML VIAL IVP PRN ×2 (09:52)
[2023-02-04] MEDS ORDERED: ZOLPIDEM 5 MG TAB PO PRN (09:52)
[2023-02-04] MEDS ORDERED: IBUPROFEN IV 800 MG in SODIUM CHLORIDE 0.9% 250 ML IV PRN (09:52)
[2023-02-04] MEDS ORDERED: METOCLOPRAMIDE 5 MG/ML 2 ML VIAL IVP PRN (09:52)
[2023-02-04] MEDS ORDERED: HYDROmorphone 0.5 MG/0.5 ML SYRINGE IVP PRN (09:52)
[2023-02-04] MEDS ORDERED: ONDANSETRON 4 MG/2 ML VIAL IVP PRN (09:52)
[2023-02-04] MEDS ORDERED: NALOXONE 0.4 MG/ML 1 ML VIAL IV PRN (09:52)
[2023-02-04] MEDS ORDERED: diphenhydrAMINE 50 MG CAP PO PRN (09:52)
--- NOTE | 2023-02-04 09:55 | P.HPOB ---
History of Present Illness H&P Date: 02/03/23 Chief Complaint: IUP at 39 and 5/7 weeks This is a 22-year-old 1 para 0 at 39-5/7 weeks that presents to labor and delivery for elective induction of labor. Patient has been receiving routine care which has been essentially uncomplicated. Patient notes good movement denies vaginal bleeding or loss of fluid. Patient states she is very uncomfortable with and is requesting induction of labor. Discussion was had with patient regarding unfavorable cervix and risks of induction given her cervix. Patient states understanding and still wishes to proceed. Ultrasound was completed in the office today revealing single live IUP vertex presentation 7 lbs. 5 oz., 30 percentile, LAMONTE 17. Obstetric history 1 para 0 On labs she has a blood type of A pos, rubella status immune, RPR non reactive, HBSaG negative, HIV neg, GBS negative. Review of Systems Constitutional: Denies chills, Denies fatigue, Denies fever Ears, nose, mouth and throat: Denies headache Cardiovascular: Denies edema Gastrointestinal: Denies constipation, Denies diarrhea, Denies nausea, Denies vomiting Genitourinary: Reports Past Medical History Past Medical History: Asthma Additional Past Medical History / Comment(s): scoliosis, hiatal hernia, IBS, states nausea , vomiting and bloating due to gall bladder problems. History of Any Multi-Drug Resistant Organisms: None Reported Past Surgical History: No Surgical Hx Reported, Cholecystectomy Additional Past Surgical History / Comment(s): wisdom teeth, colonoscopy, EGD Past Anesthesia/Blood Transfusion Reactions: No Reported Reaction Past Psychological History: Anxiety Smoking Status: Former smoker, Vaper Past Alcohol Use History: None Reported Additional Past Alcohol Use History / Comment(s): quit smoking 2016, started smoking age 13., currently vapes. Past Drug Use History: None Reported - Past Family History Father History Unknown: Yes Mother Additional Family Medical History / Comment(s): choleysystectomy Brother(s) Family Medical History: Myocardial Infarction ([place]) Medications and Allergies Home Medications Medication Instructions Recorded Confirmed Type Vit No.179/Iron/Folic 1 each PO DAILY 02/03/23 02/03/23 History [ Tablet] valACYclovir HCL [Valtrex] 500 mg PO DAILY 02/03/23 02/03/23 History Allergies Allergy/AdvReac Type Severity Reaction Status Date / Time apricot Allergy Unknown Rash/Hives Verified 02/03/23 16:09 blueberry Allergy Unknown Rash/Hives Verified 02/03/23 16:09 kiwi Allergy Unknown Rash/Hives Verified 02/03/23 16:09 codeine Allergy Itching, Verified 02/03/23 16:09 Nausea diphenhydramine Allergy Anaphylaxis Verified 02/03/23 16:09 [From Benadryl] Milk Containing Products Allergy Nausea & Verified 02/03/23 16:09 [Dairy] Vomiting & Diarrhea gluten AdvReac Nausea & Verified 02/03/23 16:09 Vomiting & Diarrhea RYE BREAD Allergy Unknown Uncoded 02/03/23 16:09 Exam Osteopathic Statement: *. No significant issues noted on an osteopathic structural exam other than those noted in the History and Physical/Consult. Vital Signs Temp Pulse Resp BP 02/03/23 16:29 97 F L 89 18 115/62 Intake and Output 02/03/23 02/03/23 02/03/23 06:59 14:59 22:59 Other: Weight 57.606 kg Targeted physical exam is performed in this date and microsoft windows engineer a well-nourished well-developed female in no acute distress, breathing is nonlabored, heart has a regular rate and rhythm, abdomen is gravid and appropriate for gestational age, on cervical exam she is fingertip/50/-3 station vertex presentation by ultrasound, Cervidil is placed without difficulty. She is feliciano irregularly Results Result Diagrams: 02/03/23 16:50 Assessment and Plan (1) Term Current Visit: Yes Status: Acute Code(s): Z34.90 - ENCNTR FOR SUPRVSN OF NORMAL , UNSP, UNSP TRIMESTER SNOMED Code(s): 46429601 Plan: 22-year-old at 39-5/7 weeks presents for elective induction of labor. Patient is admitted for Cervidil induction of labor. Options for analgesia are discussed including epidural, nitrous, Nubain. Patient will consider. On discussion with patient in the office she not make any cervical change overnight discussion regarding discharge and follow-up in the office next week. Patient is very anxious about this and wishes just to proceed with induction.
[2023-02-04] MEDS: ACETAMINOPHEN IV (For NPO) 1,000 MG in EMPTY BAG 1 BAG IVPB SCH (10:07)
[2023-02-04] MEDS: PRENATAL VIT-IRON-FOLIC ACID 1 EACH TABLET PO SCH (10:12)
[2023-02-04 16:11] VITALS: RESP 16
[2023-02-04] MEDS: SENNOSIDES-DOCUSATE SODIUM 1 EACH TAB PO SCH (20:06)
[2023-02-04] MEDS: ACETAMINOPHEN TAB 500 MG TAB PO SCH (23:44)
[2023-02-04] MEDS: IBUPROFEN 600 MG TAB PO SCH (23:46)
[2023-02-05] MEDS: ACETAMINOPHEN TAB 500 MG TAB PO SCH ×2 (00:24→20:00)
[2023-02-05] MEDS: ACETAMINOPHEN IV (For NPO) 1,000 MG in EMPTY BAG 1 BAG IVPB SCH (01:00)
[2023-02-05] MEDS: IBUPROFEN 600 MG TAB PO SCH ×5 (05:04→22:28)
[2023-02-05] MEDS: LACTATED RINGERS 1,000 ML IV SCH ×2 (05:05→05:06)
[2023-02-05 07:24] LABS: Basophils % (A) 0 %; Eosinophils # (A) 0.1 k/uL (0-0.7); Eosinophils % (A) 1 %; HGB 10.6 gm/dL (11.4-16.0); Lymphocytes # (A) 1.6 k/uL (1.0-4.8); Lymphocytes % (A) 14 %; MCH 30.2 pg (25.0-35.0); MCHC 34.1 g/dL (31.0-37.0); MCV 88.7 fL (80.0-100.0); Mean Platelet Volume 8.6; Monocytes # (A) 0.6 k/uL (0-1.0); Monocytes % (A) 5 %; Neutrophils # (A) 8.8 k/uL (1.3-7.7); Neutrophils % (A) 79 %; Platelet Count 196 k/uL (150-450); RBC 3.49 m/uL (3.80-5.40); RDW 13.2 % (11.5-15.5); WBC 11.2 k/uL (3.8-10.6)
[2023-02-05] MEDS: SENNOSIDES-DOCUSATE SODIUM 1 EACH TAB PO SCH ×2 (07:49→19:59)
--- NOTE | 2023-02-05 08:58 | P.PN ---
Progress Note - Text Progress Note Date: 02/05/23 (7768) Anesthesia Postop day 1 Subjective: Status Post section with Duramorph. Patient seen and examined. Doing well without complaint. VAS 1 out of 10. No nausea or vomiting. Mild pruritus tolerable.. Gross lower extremity strength intact. Without apparent anesthetic complications. Objective: Vital signs reviewed Heart: Regular Rate Lungs: Good chest excursion Abdomen: Appears nondistended Assessment: Status post with Duramorph postop day 1 Plan: Continue current care with your medical management. Anticipated and the Duramorph section around time today. You may see increased pain needs around this time.
--- NOTE | 2023-02-05 09:56 | P.PNOBGPC ---
Subjective - Subjective Principal diagnosis: Postop day 1, primary Interval history: Patient is doing well postoperatively. She is ambulating and voiding without difficulty. States her pain is well-controlled with oral ibuprofen and Tylenol. Her lochia is minimal. She is tolerating a regular diet without nausea or vomiting. She is breast-feeding without difficulty Patient reports: Reports appetite normal, Reports voiding normally, Reports pain well controlled, Reports ambulating normally : doing well, nursing well Objective - Vital Signs Latest vital signs: Vital Signs Temp Pulse Resp BP Pulse Ox 02/05/23 07:58 98.4 F 64 16 95/57 02/05/23 04:00 97.7 F 74 16 94/57 02/05/23 00:00 97.6 F 75 16 85/52 98 02/04/23 20:00 97.6 F 73 16 90/48 98 02/04/23 16:00 98.2 F 82 16 102/65 02/04/23 11:45 96.6 F L 63 18 108/78 98 02/04/23 11:15 96.0 F L 73 18 143/81 100 02/04/23 10:45 96.1 F L 97 18 98/66 98 02/04/23 10:30 84 18 128/93 98 02/04/23 10:15 96.4 F L 103 H 18 140/89 95 02/04/23 10:00 96.0 F L 91 18 108/76 97 Intake and Output 02/04/23 02/05/23 02/05/23 22:59 06:59 14:59 Output Total 2936 900 Balance -2936 -900 Output: Urine 2900 900 Uretheral ([place]) 1400 Output, Quantitative 36 Blood Loss Other: # Voids 1 1 1 - Exam Extremities: Present: normal. Absent: edema Abdomen: Present: normal appearance, soft Incision: Present: normal, dry, intact Uterus: Present: normal, firm - Labs Labs: Abnormal Lab Results - Last 24 Hours (Table) 02/05/23 Range/Units 06:55 WBC 11.2 H (3.8-10.6) k/uL RBC 3.49 L (3.80-5.40) m/uL Hgb 10.6 L (11.4-16.0) gm/dL Hct 31.0 L (34.0-46.0) % Neutrophils # 8.8 H (1.3-7.7) k/uL Assessment and Plan (1) Term Narrative/Plan: Failed Cervidil induction with maternal request for primary . Patient was offered discharge home if and gestational age she refused and requested primary Current Visit: Yes Status: Acute Code(s): Z34.90 - ENCNTR FOR SUPRVSN OF NORMAL , UNSP, UNSP TRIMESTER SNOMED Code(s): 34254765 (2) S/P section Current Visit: Yes Status: Acute Code(s): Z98.891 - HISTORY OF UTERINE SCAR FROM PREVIOUS SURGERY SNOMED Code(s): 493095105 Plan: Patient is doing well postoperatively. Encourage increased ambulation today, continue routine postoperative care.
[2023-02-05] MEDS: PRENATAL VIT-IRON-FOLIC ACID 1 EACH TABLET PO SCH (20:00)
[2023-02-06] MEDS: IBUPROFEN 600 MG TAB PO SCH ×2 (04:16→12:09)
--- NOTE | 2023-02-06 07:15 | P.DS ---
Providers Date of admission: 02/03/23 15:54 Expected date of discharge: 02/06/23 Attending physician: Lianna Gamble Primary care physician: Yenni Fabian - Discharge Diagnosis(es) (1) Term Current Visit: Yes Status: Acute (2) S/P section Current Visit: Yes Status: Acute Hospital Course: This is a 22-year-old 1 now para 1 that presented to labor and delivery and 02/03 for induction of labor with Cervidil. Patient had been receiving routine care which has been essentially uncomplicated. Patient was significantly uncomfortable and had family issues that she requested induction of labor. Patient was counseled on unfavorable cervix she desired to proceed despite this conversation. Patient was admitted and Cervidil was placed without difficulty. Patient did become uncomfortable overnight and tachysystole was appreciated therefore Cervidil was removed. Patient continued to contract through the night and did receive IV pain medication 1. In the morning no cervical change was appreciated. Patient was very upset and requested primary . Patient was counseled on discharge home versus primary and she elected primary . Patient was taken back to the operating suite where was performed without difficulty. Patient delivered a viable male infant at 918, weight of 6 lbs. 15 oz., Apgars of 9 and 9 at one and 5 minutes respectively. For full details on the please see the operative report. Patient has done well postoperatively. On this postoperative day #2 she is ambulating and voiding without difficulty. She is tolerating a regular diet without nausea or vomiting. She states her pain is well-controlled. Her lochia is minimal. She is breast-feeding without difficulty. She would like discharge home later today. Patient Condition at Discharge: Good Plan - Discharge Summary New Discharge Prescriptions: No Action Vit No.179/Iron/Folic [ Tablet] 1 each PO DAILY valACYclovir HCL [Valtrex] 500 mg PO DAILY Discharge Medication List Vit No.179/Iron/Folic [ Tablet] 1 each PO DAILY 02/03/23 [History] valACYclovir HCL [Valtrex] 500 mg PO DAILY 02/03/23 [History] Follow up Appointment(s)/Referral(s): Lianna Gamble DO [Doctor of Osteopathic Medicine] - 2 Weeks Patient Instructions/Handouts: (DC), (GEN) Activity/Diet/Wound Care/Special Instructions: No tub baths or intercourse until 6 weeks post operatively. [id number] ibuprofen and Tylenol as needed for pain. Patient is to call the office and make a routine postoperative appointment in 2 weeks. Should patient have any concerns prior to this appointment she is urged to call the office. Discharge Disposition: HOME SELF-CARE
[2023-02-06] MEDS: ACETAMINOPHEN TAB 500 MG TAB PO SCH (08:19)
[2023-02-06] MEDS: SENNOSIDES-DOCUSATE SODIUM 1 EACH TAB PO SCH (08:19)
[2023-02-06 08:34] VITALS: BP 102/69; PULSE 79; TEMP 97.7
== END 2023-02-06 13:30 | disposition home or self-care (01) | DRG 540 ==
LOC: 4FBP 15:54
PROVIDERS: ADMIT Obstetrics & Gynecology Obstetrics; ATTEND Obstetrics & Gynecology Obstetrics
PROC: 3E0P7VZ Introduction of Hormone into Female Reproductive, Via Natural or Artificial Opening (ICD-10-PCS; 2023-02-04)
PROC: 10D00Z1 Extraction of Products of Conception, Low, Open Approach (ICD-10-PCS; principal; 2023-02-04 06:15)
DX: O62.8 Other abnormalities of forces of labor (principal); O61.8 Other failed induction of labor; L29.9 Pruritus, unspecified; Z37.0 Single live birth; Z3A.39 39 weeks gestation of pregnancy; Z87.891 Personal history of nicotine dependence
CPT/HCPCS: 85025; 86850; 86900; 86901

== ENCOUNTER 2023-06-02 08:47 | Emergency (ER) | payer OTHER ==
[2023-06-02] MEDS ORDERED: KETOROLAC 15 MG/ML 1 ML VIAL IVP STA (09:08)
[2023-06-02] MEDS ORDERED: PANTOPRAZOLE 40 MG/10 ML VIAL IVP STA (09:08)
[2023-06-02] MEDS ORDERED: ONDANSETRON 4 MG/2 ML VIAL IVP STA (09:08)
[2023-06-02] MEDS ORDERED: SODIUM CHLORIDE 0.9% 1,000 ML IV STA (09:08)
[2023-06-02] MEDS ORDERED: MORPHINE SULFATE 4 MG/ML SYRINGE IVP STA (09:09)
[2023-06-02 09:12] VITALS: RESP 18
[2023-06-02 09:34] LABS: Basophils % (A) 0 %; Eosinophils # (A) 0.1 k/uL (0-0.7); Eosinophils % (A) 2 %; HCT 38.2 % (34.0-46.0); HGB 12.9 gm/dL (11.4-16.0); Lymphocytes # (A) 1.8 k/uL (1.0-4.8); Lymphocytes % (A) 31 %; MCH 29.2 pg (25.0-35.0); MCHC 33.7 g/dL (31.0-37.0); MCV 86.7 fL (80.0-100.0); Mean Platelet Volume 7.2; Monocytes # (A) 0.3 k/uL (0-1.0); Monocytes % (A) 5 %; Neutrophils # (A) 3.6 k/uL (1.3-7.7); Neutrophils % (A) 61 %; Platelet Count 294 k/uL (150-450); RDW 12.1 % (11.5-15.5); WBC 5.9 k/uL (3.8-10.6)
--- NOTE | 2023-06-02 09:47 | ED ---
General Adult HPI - General Chief complaint: Abdominal Pain Stated complaint: abd pain Time Seen by Provider: 06/02/23 08:56 Source: patient, RN notes reviewed, old records reviewed Mode of arrival: EMS Limitations: no limitations - History of Present Illness Initial comments: Patient is a 22-year-old female presents emergency Department with sudden onset left-sided abdominal pain. Patient states this started this morning at 7 AM when she awoke. States it comes and goes. Denies being . Denies any urinary complaints or vaginal bleeding. Denies any nausea, vomiting, diarrhea. No other symptoms. No trauma. Presents for further evaluation at this time. She does have a history of abdominal surgeries, with cholecystectomy last year. - Related Data Previous Rx's Medication Instructions Recorded Tamsulosin [Flomax] 0.4 mg PO DAILY 7 Days #7 cap 06/02/23 Allergies Allergy/AdvReac Type Severity Reaction Status Date / Time apricot Allergy Unknown Rash/Hives Verified 06/02/23 11:45 blueberry Allergy Unknown Rash/Hives Verified 06/02/23 11:45 kiwi Allergy Unknown Rash/Hives Verified 06/02/23 11:45 codeine Allergy Itching, Verified 06/02/23 11:45 Nausea diphenhydramine Allergy Anaphylaxis Verified 06/02/23 11:45 [From Benadryl] Milk Containing Products Allergy Nausea & Verified 06/02/23 11:45 (Dairy) Vomiting & [Dairy] Diarrhea gluten AdvReac Nausea & Verified 06/02/23 11:45 Vomiting & Diarrhea RYE BREAD Allergy Unknown Uncoded 06/02/23 11:45 Review of Systems ROS Statement: Those systems with pertinent positive or pertinent negative responses have been documented in the HPI. Review of Systems: CONST: Denies fever EYES: Denies blurry vision ENT: Denies nasal congestion C/V: Denies Chest pain RESP: Denies shortness of breath GI: Endorses abdominal pain : Denies dysuria SKIN: Denies rash. MSK: Denies joint pain. NEURO: Denies headache ROS Other: All systems not noted in ROS Statement are negative. Past Medical History Past Medical History: Asthma Additional Past Medical History / Comment(s): scoliosis, hiatal hernia, IBS, states nausea , vomiting and bloating due to gall bladder problems. History of Any Multi-Drug Resistant Organisms: None Reported Past Surgical History: No Surgical Hx Reported, Cholecystectomy Additional Past Surgical History / Comment(s): wisdom teeth, colonoscopy, EGD Past Anesthesia/Blood Transfusion Reactions: No Reported Reaction Past Psychological History: Anxiety Smoking Status: Former smoker, Vaper Past Alcohol Use History: None Reported Past Drug Use History: None Reported - Past Family History Father History Unknown: Yes Mother Additional Family Medical History / Comment(s): choleysystectomy Brother(s) Family Medical History: Myocardial Infarction ([place]) General Exam - General Exam Comments Initial Comments: General: Appears in moderate distress secondary to abdominal pain. HEAD: Normal with no signs of head trauma. EYES: PERRLA, EOMI, conjunctiva normal, no discharge. ENT: Hearing grossly intact, normal oropharynx. RESPIRATORY: Clear breath sounds bilaterally. No wheezes, rales, or rhonchi. C/V: Regular rate and rhythm. S1 and S2 auscultated, no edema, peripheral pulses 2+ and intact throughout ABD: Soft, nondistended. Tender to palpation left upper quadrant. No guarding. No rebound tenderness. No peritoneal signs. EXT: Normal range of motion, no obvious deformity SKIN: No rashes or lesions observed on exposed skin. NEURO: Alert and oriented x 4. Limitations: no limitations Course Vital Signs 06/02/23 06/02/23 06/02/23 08:48 09:23 13:16 Temperature 98.1 F 98.4 F Pulse Rate 77 73 68 Respiratory 18 18 18 Rate Blood Pressure 103/76 101/57 90/52 O2 Sat by Pulse 99 96 100 Oximetry Medical Decision Making - Medical Decision Making Was pt. sent in by a medical professional or institution (Dr. PA, AIR POLLUTION INSPECTOR, urgent care, hospital, or detention...) When possible be specific @ -No Did you speak to anyone other than the patient for history (EMS, parent, family, police, friend...)? What history was obtained from this source @ -No Did you review nursing and triage notes (agree or disagree)? Why? @ -I reviewed and agree with nursing and triage notes Were old charts reviewed (outside hosp., previous admission, EMS record, old EKG, old radiological studies, urgent care reports/EKG's, detention records)? Report findings @ -Old charts reviewed Differential Diagnosis (chest pain, altered mental status, abdominal pain women, abdominal pain men, vaginal bleeding, weakness, fever, dyspnea, syncope, headache, dizziness, GI bleed, back pain, seizure, CVA, palpatations, mental health, musculoskeletal)? @ -Differential Abdominal Pain Women: Appendicitis, Cholecystitis, diverticulosis, ischemic bowel, pancreatitis, h epatitis, UTI, gastroenteritis, AAA, incarcerated hernia, bowel obstruction, constipation, inflammatory bowel, hepatitis, peptic ulcer disease, splenic infarction, perforated viscus, vulvitis, ovarian torsion, PID, kidney stone, placenta abruption, this is not meant to be an all-inclusive list EKG interpreted by me (3pts min.). @ -As above X-rays interpreted by me (1pt min.). @ -None done CT interpreted by me (1pt min.). @ -CT of the abdomen and pelvis reveals left-sided ureterolithiasis with stone size approximately 3 mm with mild hydronephrosis. Stone near the UVJ. U/S interpreted by me (1pt. min.). @ -None done What testing was considered but not performed or refused? (CT, X-rays, U/S, labs)? Why? @ -None What meds were considered but not given or refused? Why? @ -None Did you discuss the management of the patient with other professionals (professionals i.e. , PA, AIR POLLUTION INSPECTOR, lab, RT, psych nurse, rn social services, mica machine operator, teacher, credit risk review officer, supportive employment case manager)? Give summary @ -No Was smoking cessation discussed for >3mins.? @ -No Was critical care preformed (if so, how long)? @ -No Were there social determinants of health that impacted care today? How? (Homelessness, low income, unemployed, alcoholism, drug addiction, tra nsportation, low edu. Level, literacy, decrease access to med. care, senior living, rehab)? @ -No Was there de-escalation of care discussed even if they declined (Discuss DNR or withdrawal of care, Hospice)? DNR status @ -No What co-morbidities impacted this encounter? (DM, HTN, Smoking, COPD, CAD, Cancer, CVA, ARF, Chemo, Hep., AIDS, mental health diagnosis, sleep apnea, morbid obesity)? @ -None Was patient admitted / discharged? Hospital course, mention meds given and route, prescriptions, significant lab abnormalities, going to OR and other pertinent info. @ -Based on the patient's presentation and physical exam, I'm concerned for possible acute intra-abdominal process for current symptoms. We will obtain abdominal laboratory studies as well as CT on pelvis. Vital signs are within acceptable limits. Patient agreement this plan. She will be symptomatically treated with IV fluids, morphine, Toradol, Zofran, Protonix. EKG showed no signs of acute ischemia.CT shows a kidney stone. Likely the source of the pain. Patient's labs unremarkable. Discussed results with the patient. She is feeling improved at this time. She'll be discharged home. Strict return precautions discussed. I will provide the patient with a prescription for Flomax, starter pack Zofran, started pack Tylenol 3. I instructed the patient to follow up with their PCP in the next 1-3 days. I provided contact information for follow up with urology. I explained that the patient should return to the emergency department if they experience any worsening symptoms. Strict return precautions were discussed with the patient. The patient expressed understanding of these instructions. I answered all questions that the patient had. The patient was discharged home in good condition with their prescriptions and follow up information. Undiagnosed new problem with uncertain prognosis? @ -No Drug Therapy requiring intensive monitoring for toxicity (Heparin, Nitro, Insulin, Cardizem)? @ -No Were any procedures done? @ -No Diagnosis/symptom? @ -Left ureterolithiasis Acute, or Chronic, or Acute on Chronic? @ -Acute Uncomplicated (without systemic symptoms) or Complicated (systemic symptoms)? @ -Complicated Side effects of treatment? @ -none Exacerbation, Progression, or Severe Exacerbation] @ -no Poses a threat to life or bodily function? @ -no - Lab Data Result diagrams: 06/02/23 09:15 06/02/23 09:15 Lab Results 06/02/23 06/02/23 06/02/23 Range/Units 09:15 09:15 09:15 WBC 5.9 (3.8-10.6) k/uL RBC 4.40 (3.80-5.40) m/uL Hgb 12.9 (11.4-16.0) gm/dL Hct 38.2 (34.0-46.0) % MCV 86.7 (80.0-100.0) fL MCH 29.2 (25.0-35.0) pg MCHC 33.7 (31.0-37.0) g/dL RDW 12.1 (11.5-15.5) % Plt Count 294 (150-450) k/uL MPV 7.2 Neutrophils % 61 % Lymphocytes % 31 % Monocytes % 5 % Eosinophils % 2 % Basophils % 0 % Neutrophils # 3.6 (1.3-7.7) k/uL Lymphocytes # 1.8 (1.0-4.8) k/uL Monocytes # 0.3 (0-1.0) k/uL Eosinophils # 0.1 (0-0.7) k/uL Basophils # 0.0 (0-0.2) k/uL PT 10.7 (10.0-12.5) sec INR 1.0 (<1.2) APTT 22.8 (22.0-30.0) sec Sodium (137-145) mmol/L Potassium (3.5-5.1) mmol/L Chloride (98-107) mmol/L Carbon Dioxide (22-30) mmol/L Anion Gap mmol/L BUN (7-17) mg/dL Creatinine (0.52-1.04) mg/dL Est GFR (CKD-EPI)AfAm (>60 ml/min/1.73 sqM) Est GFR (CKD-EPI)NonAf (>60 ml/min/1.73 sqM) Glucose (74-99) mg/dL Plasma Lactic Acid Wilbert (0.7-2.0) mmol/L Calcium (8.4-10.2) mg/dL Total Bilirubin (0.2-1.3) mg/dL AST (14-36) U/L ALT (4-34) U/L Alkaline Phosphatase (38-126) U/L Total Protein (6.3-8.2) g/dL Albumin (3.5-5.0) g/dL Amylase (30-110) U/L Lipase (23-300) U/L HCG, Qual Urine Color Light Yellow Urine Appearance Slightly Cloudy H (Clear) Urine pH 6.0 (5.0-8.0) Ur Specific [place] 1.010 (1.001-1.035) Urine Protein Negative (Negative) Urine Glucose (UA) Negative (Negative) Urine Ketones Negative (Negative) Urine Blood Large H (Negative) Urine Nitrite Negative (Negative) Urine Bilirubin Negative (Negative) Urine Urobilinogen 0.2 (<2.0) mg/dL Ur Leukocyte Esterase Trace H (Negative) Urine RBC 17 H (0-5) /hpf Urine WBC 5 (0-5) /hpf Ur Squamous Epith Cells 14 H (0-4) /hpf Urine Mucus Few H (None) /hpf Urine Yeast (Budding) Few H (None) /hpf 06/02/23 06/02/23 Range/Units 09:15 09:15 WBC (3.8-10.6) k/uL RBC (3.80-5.40) m/uL Hgb (11.4-16.0) gm/dL Hct (34.0-46.0) % MCV (80.0-100.0) fL MCH (25.0-35.0) pg MCHC (31.0-37.0) g/dL RDW (11.5-15.5) % Plt Count (150-450) k/uL MPV Neutrophils % % Lymphocytes % % Monocytes % % Eosinophils % % Basophils % % Neutrophils # (1.3-7.7) k/uL Lymphocytes # (1.0-4.8) k/uL Monocytes # (0-1.0) k/uL Eosinophils # (0-0.7) k/uL Basophils # (0-0.2) k/uL PT (10.0-12.5) sec INR (<1.2) APTT (22.0-30.0) sec Sodium 139 (137-145) mmol/L Potassium 3.8 (3.5-5.1) mmol/L Chloride 107 (98-107) mmol/L Carbon Dioxide 16 L (22-30) mmol/L Anion Gap 16 mmol/L BUN 10 (7-17) mg/dL Creatinine 0.65 (0.52-1.04) mg/dL Est GFR (CKD-EPI)AfAm >90 (>60 ml/min/1.73 sqM) Est GFR (CKD-EPI)NonAf >90 (>60 ml/min/1.73 sqM) Glucose 104 H (74-99) mg/dL Plasma Lactic Acid Wilbert 1.9 (0.7-2.0) mmol/L Calcium 9.8 (8.4-10.2) mg/dL Total Bilirubin 0.6 (0.2-1.3) mg/dL AST 20 (14-36) U/L ALT 16 (4-34) U/L Alkaline Phosphatase 64 (38-126) U/L Total Protein 7.4 (6.3-8.2) g/dL Albumin 4.6 (3.5-5.0) g/dL Amylase 52 (30-110) U/L Lipase 130 (23-300) U/L HCG, Qual Not Detected Urine Color Urine Appearance (Clear) Urine pH (5.0-8.0) Ur Specific [place] (1.001-1.035) Urine Protein (Negative) Urine Glucose (UA) (Negative) Urine Ketones (Negative) Urine Blood (Negative) Urine Nitrite (Negative) Urine Bilirubin (Negative) Urine Urobilinogen (<2.0) mg/dL Ur Leukocyte Esterase (Negative) Urine RBC (0-5) /hpf Urine WBC (0-5) /hpf Ur Squamous Epith Cells (0-4) /hpf Urine Mucus (None) /hpf Urine Yeast (Budding) (None) /hpf - EKG Data -: EKG Interpreted by Me EKG Comments: 12-lead Electrocardiogram Interpretation Note EKG was reviewed and interpreted by myself. 12-lead ECG performed at 0931 is interpreted by me as revealing normal sinus rhythm at a rate of 68 beats per minute. [place] is rightward deviated. OR interval is 201 ms, QRS duration is 84 ms, QTc is 434 ms.. There were no ST or T wave abnormalities to suggest myocardial ischemia or injury. R wave progression across the precordium was satisfactory. By my interpretation this EKG is non-diagnostic for acute ischemia. Disposition Clinical Impression: Nephrolithiasis, Ureterolithiasis Disposition: HOME SELF-CARE Condition: Good Instructions (If sedation given, give patient instructions): Kidney Stones (ED) Prescriptions: Tamsulosin [Flomax] 0.4 mg PO DAILY 7 Days #7 cap Is patient prescribed a controlled substance at d/c from ED?: No Referrals: Derrick Fabian MD [Primary Care Provider] - 1-2 days Wiley Larson MD [STAFF PHYSICIAN] - 1-2 days Time of Disposition: 12:42
[2023-06-02 10:00] LABS: ALT 16 U/L (4-34); AST 20 U/L (14-36); African American GFR (CKD) >90 (>60 ml/min/1.73 sqM); Albumin 4.6 g/dL (3.5-5.0); Alkaline Phosphatase 64 U/L (38-126); Amylase 52 U/L (30-110); Anion Gap 16 mmol/L; Blood Urea Nitrogen 10 mg/dL (7-17); Calcium 9.8 mg/dL (8.4-10.2); Carbon Dioxide 16 mmol/L (22-30); Chloride 107 mmol/L (98-107); Glucose 104 mg/dL (74-99); Lipase 130 U/L (23-300); Non-African American GFR(CKD) >90 (>60 ml/min/1.73 sqM); Potassium 3.8 mmol/L (3.5-5.1); Sodium 139 mmol/L (137-145); Total Bilirubin 0.6 mg/dL (0.2-1.3); Total Protein 7.4 g/dL (6.3-8.2)
[2023-06-02 10:04] LABS: Partial Thromboplastin Time 22.8 sec (22.0-30.0); Prothrombin Time 10.7 sec (10.0-12.5)
[2023-06-02] MEDS ORDERED: HYDROmorphone 0.5 MG/0.5 ML SYRINGE IVP STA (10:06)
[2023-06-02 10:08] LABS: HCG,Qualitative Serum Not Detected
--- NOTE | 2023-06-02 11:55 | CT ---
EXAMINATION TYPE: CT abdomen pelvis w con CT DLP: 486 mGycm, Automated exposure control for dose reduction was used. DATE OF EXAM: 06/02/2023 11:05 AM COMPARISON: 05/21/2022 CLINICAL INDICATION:Female, 22 years old with history of abdominal pain, acute; GENERALIZED ABDOMINAL PAIN, NAUSEA, VOMITING TECHNIQUE: Axial CT of the ;CT abdomen pelvis w con;Sagittal and coronal reformats were created on a separate workstation. Contrast used:100 mL of Isovue 300 with IV Contrast, (none if empty) Oral contrast used: without Oral Contrast (none if empty) FINDINGS: LOWER CHEST: Unremarkable ABDOMEN LIVER: Unremarkable GALLBLADDER AND BILE DUCTS: The gallbladder surgically removed. PANCREAS: Unremarkable. SPLEEN: Unremarkable. ADRENAL GLANDS: Unremarkable. KIDNEYS AND URETERS: Mild left hydronephrosis secondary obstructing calculus at the ureterovesicular junction measuring 3 mm. Delayed left nephrogram compared to the right. PELVIS BLADDER: Unremarkable REPRODUCTIVE: Unremarkable. ABDOMEN & PELVIS STOMACH AND BOWEL:No evidence of bowel obstruction. PERITONEUM/RETROPERITONEUM: No evidence of pneumoperitoneum or free fluid. VASCULATURE: No evidence of aortic aneurysm. MUSCULOSKELETAL: No acute osseous abnormalities LYMPH NODES: No gross evidence for lymphadenopathy. SOFT TISSUE/ABDOMINAL WALL: Unremarkable IMPRESSION: Mild left hydronephrosis secondary obstructing calculus at the ureterovesicular junction measuring 3 mm. Correlate with urinalysis. There is a delayed nephrogram on the left. No additional acute abdomin al process.
[2023-06-02] MEDS ORDERED: TAMSULOSIN 0.4 MG CAP.ER.24H PO STA (12:14)
[2023-06-02 12:44] LABS: Budding Yeast,Urine Few /hpf; Mucus,Urine Few /hpf; RBC,Urine 17 /hpf (0-5); Squamous Epithelial Cell,Urine 14 /hpf (0-4); WBC,Urine 5 /hpf (0-5)
[2023-06-02 12:51] LABS: Appearance,Urine Slightly Cloudy (Clear); Bilirubin,Urine Negative (Negative); Blood,Urine Large (Negative); Color,Urine Light Yellow; Glucose,Urine (UA) Negative (Negative); Ketones,Urine Negative (Negative); Leukocyte Esterase,Urine Trace (Negative); Nitrite,Urine Negative (Negative); Protein,Urine Negative (Negative); Urobilinogen,Urine 0.2 mg/dL (<2.0)
[2023-06-02] MEDS ORDERED: ONDANSETRON 4 MG ODT STARTER PACK 2 TAB BTL PO STA (13:00)
[2023-06-02] MEDS ORDERED: ACET/COD 300 MG/30 MG STARTER PACK 6 TAB BTL PO STA (13:00)
[2023-06-02 13:27] VITALS: BP 90/52; PULSE 68; TEMP 98.4
== END 2023-06-02 13:16 | disposition home or self-care (01) ==
LOC: EC 08:47
DX: N13.2 Hydronephrosis with renal and ureteral calculous obstruction (principal); J45.909 Unspecified asthma, uncomplicated; F17.290 Nicotine dependence, other tobacco product, uncomplicated; Z91.018 Allergy to other foods; Z91.011 Allergy to milk products; Z88.5 Allergy status to narcotic agent; Z88.8 Allergy status to other drugs, medicaments and biological substances; Z86.59 Personal history of other mental and behavioral disorders; Z90.49 Acquired absence of other specified parts of digestive tract
CPT/HCPCS: 36415; 93005; 80053; 82150; 83605; 83690; 85025; 85610; 85730; 81001; 84703; 74177; 99285; 96374; 96375 ×4; 96361 ×2; J2270; J2405; J1885; S0119; C9113; J1170; Q9967